=== PATIENT | female | born 1990 | race Caucasian/White ===

== ENCOUNTER 2021-09-10 11:20 | Outpatient (REF) | payer OTHER, SELFPAY ==
[2021-09-10 13:38] LABS: Binax Internal Control QC Valid; Binax Now Covid-19 Ag Negative (Negative)
== END 2021-09-10 11:21 | disposition home or self-care (01) ==
LOC: HO.LAB 11:20
PROVIDERS: Visit Provider Internal Medicine
DX: Z20.822 Contact with and (suspected) exposure to COVID-19 (principal)
CPT/HCPCS: 36415; C9803

== ENCOUNTER 2021-10-12 10:39 | Outpatient (REF) | payer OTHER, SELFPAY ==
[2021-10-12 11:04] LABS: MANUAL DIFF FLAG NO
[2021-10-12 11:28] LABS: Basophils Absolute Auto 0.1 X10*3/uL (0.0-0.2); Basophils Percent Auto 0.6 % (0-2); Eosinophils Absolute Auto 0.3 X10*3/uL (0.0-0.4); Eosinophils Percent Auto 2.9 % (0-4); Estimated Average Glucose 103 mg/dL; Hematocrit 35.8 % (37.0-47.0); Hemoglobin 9.9 g/dl (12.0-16.0); Hemoglobin A1c % 5.2 %; Imm Gran Abs Auto 0.03 X10*3/uL (0.00-0.03); Imm Gran Pct Auto 0.3 % (0.0-0.4); Lymphocytes Absolute Auto 1.8 X10*3/uL (1.2-4.9); Lymphocytes Percent Auto 19.4 % (20-40); Mean Corpuscular HGB Conc 27.7 g/dl (31.0-35.0); Mean Corpuscular Hemoglobin 19.8 pg (27.0-33.0); Mean Corpuscular Volume 71.5 fL (80.0-98.0); Monocytes Absolute Auto 0.7 X10*3/uL (0.1-1.2); Monocytes Percent Auto 7.4 % (2-11); Neutrophils Absolute Auto 6.5 x10*3/uL (2.0-8.3); Neutrophils Percent Auto 69.4 % (45-73); Platelet Count 293 X10*3/uL (160-400); Red Blood Count 5.01 X10*6/uL (4.20-5.50); Red Cell Distribution Width 18.8 % (11.0-16.0); White Blood Count 9.4 X10*3/uL (4.8-10.8)
[2021-10-12 12:02] LABS: TSH reflex Free T4 2.49 uIU/mL (0.32-4.0)
[2021-10-12 12:05] LABS: Alanine Aminotransferase 23 U/L (0-31); Albumin Level 4.3 g/dL (3.5-5.0); Alkaline Phosphatase 108 U/L (39-117); Anion Gap 12 (12-20); Aspartate Amino Transferase 16 U/L (5-31); Blood Urea Nitrogen 9 mg/dL (9-16); Calcium 9.5 mg/dL (8.4-10.2); Carbon Dioxide 24 mmol/L (22-29); Chloride 107 mmol/L (96-108); Cholesterol 110 mg/dL; Estimated Glomerular Filt Rate > 60; Glucose Fasting 104 mg/dL (60-99); HDL Cholesterol 32 mg/dL; LDL Cholesterol Calculated 55 mg/dl; Sodium 139 mmol/L (135-145); Total Protein 7.1 g/dL (6.5-8.0); Triglycerides 115 mg/dL
== END 2021-10-12 10:40 | disposition home or self-care (01) ==
LOC: HO.LAB 10:39
PROVIDERS: Visit Provider Nurse Practitioner Family
DX: F41.9 Anxiety disorder, unspecified (principal); Z76.89 Persons encountering health services in other specified circumstances
CPT/HCPCS: 36415; 80053; 80061; 83036; 84443; 85025

== ENCOUNTER → 2022-01-11 13:20 | Outpatient (BNVA) | payer OTHER, SELFPAY | PROVIDERS: PCP Nurse Practitioner Family; Referring Provider Nurse Practitioner Family; Visit Provider Physician Assistant | DX: Z13.89 Encounter for screening for other disorder (principal) ==

== ENCOUNTER → 2022-01-25 15:53 | Outpatient (REF) | payer OTHER, SELFPAY | LOC: HO.SL 15:53 | PROVIDERS: PCP Nurse Practitioner Acute Care; Visit Provider Nurse Practitioner Family | DX: G47.33 Obstructive sleep apnea (adult) (pediatric) (principal) | CPT/HCPCS: 95806 ==

== ENCOUNTER → 2022-02-24 10:44 | Outpatient (BNVA) | payer OTHER, SELFPAY | PROVIDERS: PCP Nurse Practitioner Acute Care; Visit Provider Physician Assistant | DX: E66.01 Morbid (severe) obesity due to excess calories (principal); G47.33 Obstructive sleep apnea (adult) (pediatric); D50.9 Iron deficiency anemia, unspecified; Z68.43 Body mass index [BMI] 50.0-59.9, adult | CPT/HCPCS: 99202 ==

== ENCOUNTER 2022-03-03 14:05 | Outpatient (REF) | payer OTHER, SELFPAY ==
[2022-03-06 14:10] LABS: H Pylori Breath Test Negative (Negative)
== END 2022-03-03 14:06 | disposition home or self-care (01) ==
LOC: HO.LNP 14:05
PROVIDERS: Physician Assistant Surgical; PCP Nurse Practitioner Acute Care; Visit Provider Physician Assistant
DX: Z01.818 Encounter for other preprocedural examination (principal)
CPT/HCPCS: 83013; 99211

== ENCOUNTER → 2022-03-10 15:11 | Outpatient (BNVA) | payer OTHER, SELFPAY | PROVIDERS: PCP Nurse Practitioner Acute Care; Visit Provider Dietitian, Registered | DX: E66.01 Morbid (severe) obesity due to excess calories (principal); Z68.42 Body mass index [BMI] 45.0-49.9, adult; Z71.3 Dietary counseling and surveillance | CPT/HCPCS: 97802 ==

== ENCOUNTER 2022-03-23 12:03 | Outpatient (REF) | payer OTHER, SELFPAY ==
--- NOTE | ~2022-03-23 | XR_ITS ---
EXAMINATION: XR CHEST CLINICAL INFORMATION: Severe obesity due to excess calories COMPARISON: None TECHNIQUE: 2 views of the chest were obtained. FINDINGS: The lungs are well-expanded and clear. The heart size and pulmonary vascularity is normal. There is moderate dextroscoliosis mid dorsal spine. No lytic or sclerotic process seen. XR/XR chest 2V IMPRESSION: Unremarkable chest exam
--- NOTE | 2022-03-23 12:39 | ECG_ITS ---
Test Reason : MORBID OBESITY Blood Pressure : / mmHG Vent. Rate : 087 BPM Atrial Rate : 087 BPM P-R Int : 142 ms QRS Dur : 080 ms QT Int : 360 ms P-R-T Axes : -09 024 010 degrees QTc Int : 433 ms Normal sinus rhythm Normal ECG No previous ECGs available Referred By: Riaz French Electronically Signed By:Josafat Seaman
[2022-03-23 13:15] LABS: Basophils Absolute Auto 0.1 X10*3/uL (0.0-0.2); Basophils Percent Auto 0.7 % (0-2); Hematocrit 36.3 % (37.0-47.0); Hemoglobin 10.1 g/dl (12.0-16.0); Mean Corpuscular HGB Conc 27.8 g/dl (31.0-35.0); Monocytes Absolute Auto 0.6 X10*3/uL (0.1-1.2); Red Cell Distribution Width 18.6 % (11.0-16.0); SCAN SMEAR FLAG 1
[2022-03-23 13:18] LABS: Eosinophils Absolute Auto 0.3 X10*3/uL (0.0-0.4); Eosinophils Percent Auto 3.2 % (0-4); Imm Gran Abs Auto 0.02 X10*3/uL (0.00-0.03); Imm Gran Pct Auto 0.2 % (0.0-0.4); Lymphocytes Percent Auto 23.7 % (20-40); Mean Corpuscular Hemoglobin 20.1 pg (27.0-33.0); Mean Corpuscular Volume 72.3 fL (80.0-98.0); Monocytes Percent Auto 6.7 % (2-11); Neutrophils Absolute Auto 5.6 x10*3/uL (2.0-8.3); Neutrophils Percent Auto 65.5 % (45-73); Platelet Count 310 X10*3/uL (160-400); Red Blood Count 5.02 X10*6/uL (4.20-5.50); White Blood Count 8.5 X10*3/uL (4.8-10.8)
[2022-03-23 13:25] LABS: Estimated Average Glucose 100 mg/dL; Hemoglobin A1c % 5.1 %
[2022-03-23 13:28] LABS: MANUAL DIFF FLAG NO; PLT ABN DIST 1
[2022-03-23 13:36] LABS: Alanine Aminotransferase 34 U/L (0-31); Albumin Level 4.5 g/dL (3.5-5.0); Alkaline Phosphatase 111 U/L (39-117); Anion Gap 11 (12-20); Aspartate Amino Transferase 19 U/L (5-31); Bilirubin Total 0.6 mg/dL (0.0-1.0); Blood Urea Nitrogen 13 mg/dL (9-16); Calcium 9.5 mg/dL (8.4-10.2); Carbon Dioxide 25 mmol/L (22-29); Chloride 109 mmol/L (96-108); Cholesterol 101 mg/dL; Estimated Glomerular Filt Rate > 60; Glucose Random 103 mg/dL (60-115); HDL Cholesterol 31 mg/dL; Iron 37 mcg/dL (30-160); LDL Cholesterol Calculated 49 mg/dl; Percent Iron Saturation 8 % (15-50); Potassium 4.5 mmol/L (3.3-5.1); Sodium 140 mmol/L (135-145); Total Iron Binding Capacity 446 mcg/dL (228-428); Total Protein 7.4 g/dL (6.5-8.0); Triglycerides 107 mg/dL; Unsaturated Iron Binding 409 ug/dL
[2022-03-23 13:59] LABS: Ferritin 17 ng/mL (10-122); Insulin 46 uU/mL (2-29); TSH reflex Free T4 2.09 uIU/mL (0.32-4.0); Vitamin D 25-OH Total 12.1 ng/mL (>30)
[2022-03-23 14:21] LABS: Vitamin B12 404 pg/mL (200-900)
[2022-03-24 12:55] LABS: Calcium (PTHI) 9.6 mg/dL (8.6-10.2); PTHI 97 pg/mL (16-77)
[2022-03-28 16:47] LABS: Zinc 82 mcg/dL (60-130)
[2022-03-30 13:56] LABS: Vitamin B1 7 nmol/L (8-30)
[2022-03-31 15:21] LABS: Vitamin A 38 mcg/dL (38-98)
== END 2022-03-23 12:04 | disposition home or self-care (01) ==
LOC: HO.XRAY 12:03
PROVIDERS: PCP Nurse Practitioner Family; Visit Provider Physician Assistant Surgical
DX: E66.01 Morbid (severe) obesity due to excess calories (principal)
CPT/HCPCS: 36415; 71046; 80053; 80061; 82306; 82607; 82728; 82746; 83036; 83525; 83540; 83970; 84425; 84443; 84590; 84630; 85025; 86140; 93005

== ENCOUNTER → 2022-03-24 13:56 | Outpatient (BNVA) | payer OTHER, SELFPAY | PROVIDERS: PCP Nurse Practitioner Acute Care; Visit Provider Physician Assistant | DX: E66.01 Morbid (severe) obesity due to excess calories (principal); Z68.42 Body mass index [BMI] 45.0-49.9, adult | CPT/HCPCS: 99212 ==

== ENCOUNTER → 2022-04-09 14:33 | Outpatient (BNVA) | payer OTHER, SELFPAY | PROVIDERS: PCP Nurse Practitioner Acute Care; Referring Provider Physician Assistant; Visit Provider Dietitian, Registered | DX: E66.01 Morbid (severe) obesity due to excess calories (principal) | CPT/HCPCS: 97803 ==

== ENCOUNTER 2022-04-15 09:21 | Outpatient (REF) | payer OTHER, SELFPAY ==
--- NOTE | ~2022-04-15 | FL_ITS ---
EXAMINATION: XR FLUOROSCOPY UPPER GI WITH AIR CLINICAL INFORMATION: Morbid obesity. Evaluate for hiatal hernia or reflux. COMPARISON: None TECHNIQUE: Double contrast examination of the upper GI tract. The patient was administered gas-forming crystals. The patient was observed upright and recumbent. Provocative maneuvers were performed to assess for the presence of GE reflux. FINDINGS: There is no delay in swallowing. There is no esophageal mass or fixed area of narrowing. Minimal esophageal dysmotility manifested by some nonpropulsive contractions. There is a tiny sliding-type hiatal hernia intermittently demonstrated. This manifests as a small projection of the above the esophageal hiatus. No reflux was demonstrated under fluoroscopy. The patient was unable to retain the gaseous distention. There is no gastric mass or ulcer. There was no delay in gastric emptying. No abnormality of the duodenum. I suspect some scoliosis. FLUOROSCOPY TIME: 1.7 minutes DOSE AREA PRODUCT: 29.690 Gy-cm2 (hernandez-centimeter squared) FL/FL upper GI w air IMPRESSION: There is no mass or fixed area of narrowing. Trace esophageal dysmotility. Minimal transient sliding-type hiatal hernia No reflux demonstrated under fluoroscopy. No delay in gastric emptying
--- NOTE | ~2022-04-15 | US_ITS ---
EXAMINATION: US COMPLETE ABDOMEN WITH LIVER ELASTOGRAPHY CLINICAL INFORMATION: Morbid, severe obesity to access calories COMPARISON: None. TECHNIQUE: Real-time imaging of the abdominal viscera. Noninvasive ultrasound liver fibrosis assessment is performed using Melecio ElastPQ point quantification shear wave elastography (2D-SWE) with a C5-2 MHz transducer. Multiple elastography samples are obtained. FINDINGS: Patient habitus limits detail PANCREAS: No suspicious abnormality in the visualized portions of the pancreas ABDOMINAL AORTA: The proximal aorta was visualized without definite abnormality. The remainder of the aorta was obscured INFERIOR VENA CAVA: Visualized portions are normal. LIVER: The right lobe of the liver measures 18.4 cm which is approximately 1 standard deviation above the mean expected. The left lobe the liver measures 14.1 cm. The liver contour is smooth. There is diffuse increased hepatic echogenicity with some attenuation of sound. There is poor visualization of the diaphragm. There is no suspicious focal liver lesion. The right lobe measures 18.4 cm in length. The left lobe measures 14.1 cm in length. Portal flow is towards the liver (hepatopetal). Shear wave liver elastography median stiffness is 1.72 m/s (reference: normal median stiffness is 1.3 m/s or less). IQR/median stiffness to assess sampling precision is 0.09 (reference: good quality data set is IQR/median stiffness of 0.15 or less). GALLBLADDER: The gallbladder is not visualized and there is a history of cholecystectomy COMMON BILE DUCT: Normal in caliber measuring 0.5 cm in diameter. RIGHT KIDNEY: Normal. No hydronephrosis. No renal calculi or focal parenchymal lesions. The kidney measures 12.5 cm in maximum dimension. LEFT KIDNEY: Normal. No hydronephrosis. No renal calculi or focal parenchymal lesions. The kidney measures 14.3 cm in maximum dimension. SPLEEN: The spleen is approximately 2 standard deviations above the mean expected. The spleen measures 14.9 cm in maximum dimension. FREE FLUID: None. US/US abdomen comp w elastography IMPRESSION: 1. The liver volume is top normal. The liver contour is smooth. No suspicious focal liver lesion. Diffuse increased hepatic echogenicity which can be seen with fatty change. No suspicious focal liver lesion 2. Liver elastography: Measurements are suggestive of compensated advanced chronic liver disease but need further test for confirmation. The liver stiffness is borderline suggestive of compensated chronic liver disease No secondary evidence of sequelae from portal hypertension REFERENCE: Society of Radiologists in Ultrasound Liver Stiffness Thresholds (2020): LIVER STIFFNESS THRESHOLDS: *Liver Stiffness equal or less than 1.3 m/s: High probability of being normal. *Liver Stiffness less than 1.7 m/s: In the absence of other known clinical signs, rules out compensated advanced chronic liver disease. *Liver Stiffness 1.7-2.1 m/s: Suggestive of compensated advanced chronic liver disease but need further test for confirmation. *Liver Stiffness over 2.1 m/s: Rules in compensated advanced chronic liver disease. *Liver Stiffness over 2.4 m/s: Suggestive of clinically significant portal hypertension. QUALITY OF DATA SET: *IQR/Median value equal or less than 0.15 implies a quality data set. *IQR/Median value over 0.15 implies a poor quality data set. SIGNIFICANT CHANGE FROM PRIOR EXAM: Significant change if liver stiffness measurement is 10% or greater from prior exam. OTHER CONSIDERATIONS: The stage of liver fibrosis may be overestimated in the setting of acute hepatitis, liver inflammation, elevated liver function tests, hepatic vascular congestion, obstructive cholestasis, non-fasting state, and infiltrative diseases such as amyloidosis and lymphoma. In some patients with NAFLD, the liver stiffness thresholds for compensated advanced chronic liver disease may be lower. In causes other than viral hepatitis and NAFLD, liver stiffness thresholds are not well established.
== END 2022-04-15 09:22 | disposition home or self-care (01) ==
LOC: HO.US 09:21
PROVIDERS: Visit Provider Physician Assistant
DX: E66.01 Morbid (severe) obesity due to excess calories (principal)
CPT/HCPCS: 74246; 76705; 76981

== ENCOUNTER → 2022-04-28 15:08 | Outpatient (BNVA) | payer OTHER, SELFPAY | PROVIDERS: PCP Nurse Practitioner Acute Care; Referring Provider Nurse Practitioner Acute Care; Visit Provider Physician Assistant | DX: G47.33 Obstructive sleep apnea (adult) (pediatric) (principal); E66.01 Morbid (severe) obesity due to excess calories | CPT/HCPCS: 99212 ==

== ENCOUNTER 2022-05-07 15:13 | Outpatient (REF) | payer OTHER, SELFPAY ==
[2022-05-07 16:01] LABS: COVID-19 Test Negative (Negative); IDNOW Serial# 08D9AD1C
== END 2022-05-07 15:14 | disposition home or self-care (01) ==
LOC: HO.LAB 15:13
PROVIDERS: Visit Provider Internal Medicine
DX: Z20.822 Contact with and (suspected) exposure to COVID-19 (principal)
CPT/HCPCS: 87635; C9803

== ENCOUNTER 2022-10-12 19:18 | Emergency (ER) | payer OTHER, SELFPAY ==
--- NOTE | 2022-10-12 19:21 | ED.DIZZY ---
HPI - Dizziness General Chief Complaint: Dizziness <Kaykay Stark CNP - Last Filed: 10/12/22 19:25> Stated Complaint: Dizziness <Kaykay Stark CNP - Last Filed: 10/12/22 19:25> Time Seen by Provider: 10/12/22 21:05 <Kaykay Stark CNP - Last Filed: 10/12/22 19:25> Source: patient <Zeke Gray MD - Last Filed: 10/12/22 22:18> Mode of arrival: ambulatory <Zeke Gray MD - Last Filed: 10/12/22 22:18> Limitations: no limitations <Zeke Gray MD - Last Filed: 10/12/22 22:18> History of Present Illness HPI Narrative: Patient with no significant past medical history noticed sudden onset vertiginous feeling for last 4 days patient feel everything spinning around with unsteady gait slight nausea no headache no fever no chills patient never had similar some complaints in the past no ear discharge or tinnitus <Zeke Gray MD - Last Filed: 10/12/22 22:18> Related Data Home Medications: Home Medications Medication Instructions Recorded Confirmed betamethasone dipropionate 0.05 % appl topical 12/25/21 topical cream chlorhexidine gluconate 4 % topical DAILY 12/25/21 topical liquid (Hibiclens) buspirone 7.5 mg tablet 7.5 mg PO TID anxiety 02/24/22 fluoxetine 20 mg capsule 20 mg PO DAILY 02/24/22 hydroxyzine pamoate 25 mg capsule 25 mg PO BID PRN panic attack 02/24/22 trazodone 50 mg tablet 50 mg PO BEDTIME 02/24/22 Previous Rx's Medication Instructions Recorded ferrous sulfate 325 mg (65 mg 325 mg PO BID #60 tabs 02/15/22 iron) tablet cholecalciferol (vitamin D3) 25 25 mcg PO DAILY #30 caps 03/24/22 mcg (1,000 unit) capsule thiamine HCl (vitamin B1) 100 mg 100 mg PO DAILY #30 tabs 03/30/22 tablet docusate sodium 100 mg capsule 100 mg PO BID #60 caps 04/28/22 (Colace) inulin 2 gram chewable tablet 2 g PO BID #60 tabs 04/28/22 (Fiber Gummies) meclizine 25 mg tablet 25 mg PO TID PRN dizziness #20 tabs 10/12/22 <Kaykay Stark CNP - Last Filed: 10/12/22 19:25> Allergies/Adverse Reactions: Allergies Allergy/AdvReac Type Severity Reaction Status Date / Time No Known Allergies Allergy Verified 04/28/22 15:31 <Kaykay Stark CNP - Last Filed: 10/12/22 19:25> Review of Systems Review of Systems: Yes all other systems are reviewed and are negative <Zeke Gray MD - Last Filed: 10/12/22 22:18> [facility] Past Medical History Surgical History: Surgical History History of History of cholecystectomy History of tubal ligation <Kaykay Stark CNP - Last Filed: 10/12/22 19:25> Family History Family History: Family History Father Diabetes Hypertension Mother Hypertension Diabetes High cholesterol Heart problem Family/Other Mental health disorder Substance use disorder Maternal Aunt Breast cancer, Onset Age: 65 Maternal Uncle Prostate CA Sister Diabetes Brother Diabetes Brother No problems noted. Son No problems noted. Son ADHD Son ADHD Other Throat cancer <Kaykay Stark CNP - Last Filed: 10/12/22 19:25> Social History Social History: Social History (Reviewed 04/28/22 @ 15:31 by Sahra Clayton, [facility]) Housing: Apartment Alcohol intake: never Patient Tobacco Use Status: Current everyday Tobacco user Tobacco use type: Cigarette Cigarettes Per Day: 6 Smoked in Last 30 Days: Yes e-Cigarette/Vaping Use: Never Used Second Hand Smoke Exposure: No Use of substances other than those prescribed or required for medical reasons: No Advance Directives: No Advance Directives Information Provided: No Patient : No service: No Current occupational status: unemployed Cognitive needs: No Hearing needs: No Vision needs: No <Kaykay Stark CNP - Last Filed: 10/12/22 19:25> Physical Exam Vital Signs: Vital Signs: Last Vital Signs Temp 97.9 F 10/12/22 19:24 Pulse 109 H 10/12/22 20:38 Resp 16 10/12/22 19:24 BP 142/88 H 10/12/22 20:38 Pulse Ox 100 10/12/22 19:24 O2 Del Method 10/12/22 19:24 BMI result Body Mass Index 52.7 <Kaykay Stark CNP - Last Filed: 10/12/22 19:25> Vital Signs: Last Vital Signs Temp 97.9 F 10/12/22 19:24 Pulse 109 H 10/12/22 20:38 Resp 16 10/12/22 19:24 BP 142/88 H 10/12/22 20:38 Pulse Ox 100 10/12/22 19:24 O2 Del Method 10/12/22 19:24 BMI result Body Mass Index 52.7 <Zeke Gray MD - Last Filed: 10/12/22 22:18> Appearance: Alert. Oriented X3. No acute distress. Eyes: PERRLA, No Nystagmus ENT: Pharynx normal. Oral Mucosa moist Neck: Normal inspection. Neck supple. CVS: Normal heart rate and rhythm. Pulses normal. Respiratory: No respiratory distress. Equal air entry bilateral, Abdomen: Soft and nontender. Bowel sounds are present, Skin: Skin warm and dry. Normal skin color. Normal skin turgor. Extremities: No lower extremity edema. No calf tenderness Neuro: Oriented X 3. No motor deficit. No sensory deficit.No cerebellar signs , cranial nerves II-XII intact <Zeke Gray MD - Last Filed: 10/12/22 22:18> Course Course Course Narrative: This is an RME: Additional HPI, ROS, PE not included below will be deferred to primary provider. Patient is a 32-year-old female who presents emergency department for evaluation of Dizziness x 4 days, intermittently, with associated nausea no vomiting. Worse with position changes, but also occured today while driving, room spinning sensation. Yesterday with a headache, currently without. Denies fevers, chills, neck pain, chest pain, shortness of breath ABD pain, numbness or tingling. Denies possibility of , tubal ligation Plan: labs, urinalysis/ preg, orthostatic VS <Kaykay Stark CNP - Last Filed: 10/12/22 19:25> Medications Administered Discontinued Medications Generic Name Dose Route Start Last Admin Trade Name Pricilla PRN Reason Stop Dose Admin Meclizine HCl 50 mg 10/12/22 21:31 10/12/22 21:48 Meclizine Hcl 25 Mg Tablet PO 10/12/22 21:32 50 mg ONCE ONE Administration <Kaykay Stark CNP - Last Filed: 10/12/22 19:25> Medications Administered Discontinued Medications Generic Name Dose Route Start Last Admin Trade Name Freq PRN Reason Stop Dose Admin Meclizine HCl 50 mg 10/12/22 21:31 10/12/22 21:48 Meclizine Hcl 25 Mg Tablet PO 10/12/22 21:32 50 mg ONCE ONE Administration <Zeke Gray MD - Last Filed: 10/12/22 22:18> Medical Decision Making Medical Decision Making [facility] Narrative: Patient has stable labs clinically benign positional vertigo feeling much better now will give meclizine discharge patient home . <Zeke Gray MD - Last Filed: 10/12/22 22:18> Lab Data [facility] Lab Attestation statement: I reviewed the patient's lab results. <Zeke Gray MD - Last Filed: 10/12/22 22:18> Result Diagrams: 10/12/22 19:47 10/12/22 19:47 <Kaykay Stark CNP - Last Filed: 10/12/22 19:25> Labs: Lab Results 10/12/22 10/12/22 10/12/22 Range/Units 19:47 19:47 19:47 WBC 10.1 (4.8-10.8) X10*3/uL RBC 4.84 (4.20-5.50) X10*6/uL Hgb 9.5 L (12.0-16.0) g/dl Hct 34.1 L (37.0-47.0) % MCV 70.5 L (80.0-98.0) fL MCH 19.6 L (27.0-33.0) pg MCHC 27.9 L (31.0-35.0) g/dl RDW 18.2 H (11.0-16.0) % Plt Count 316 (160-400) X10*3/uL MPV Not Reportable Immature Gran % (Auto) 0.2 (0.0-0.4) % Neut % (Auto) 71.3 (45-73) % Lymph % (Auto) 19.5 L (20-40) % [place] % (Auto) 6.7 (2-11) % Eos % (Auto) 1.5 (0-4) % Baso % (Auto) 0.8 (0-2) % Lymph # (Auto) 2.0 (1.2-4.9) X10*3/uL [place] # (Auto) 0.7 (0.1-1.2) X10*3/uL Eos # (Auto) 0.2 (0.0-0.4) X10*3/uL Baso # (Auto) 0.1 (0.0-0.2) X10*3/uL Abs Immat Gran (auto) 0.02 (0.00-0.03) X10*3/uL Absolute Neuts (auto) 7.2 (2.0-8.3) x10*3/uL Absolute Nucleated RBC 0.000 (0.0-0.012) X10*3/uL Nucleated RBC % (auto) 0.0 (0.0-0.2) /100WBC Sodium 141 (135-145) mmol/L Potassium 3.8 (3.3-5.1) mmol/L Chloride 109 H (96-108) mmol/L Carbon Dioxide 22 (22-29) mmol/L Anion Gap 14 (12-20) BUN 11 (9-16) mg/dL Creatinine 0.74 (0.5-1.4) mg/dL Estim Creat Clear Calc 156.5 Estimated GFR > 60 Random Glucose 147 H (60-115) mg/dL Calcium 9.1 (8.4-10.2) mg/dL Magnesium 1.9 (1.6-2.6) mg/dL Total Bilirubin 0.7 (0.0-1.0) mg/dL AST 14 (5-31) U/L ALT 27 (0-31) U/L Alkaline Phosphatase 116 (39-117) U/L Total Protein 6.5 (6.5-8.0) g/dL Albumin 4.0 (3.5-5.0) g/dL Urine Test (NEGATIVE) COVID-19 ([facility]) (Negative) COVID-19 Clin Com Influenza Type A ([facility]ERTO) Negative (Negative) Influenza Type B ([facility]O) Negative (Negative) Influenza A & B Note See Note 10/12/22 10/12/22 Range/Units 19:47 20:04 WBC (4.8-10.8) X10*3/uL RBC (4.20-5.50) X10*6/uL Hgb (12.0-16.0) g/dl Hct (37.0-47.0) % MCV (80.0-98.0) fL MCH (27.0-33.0) pg MCHC (31.0-35.0) g/dl RDW (11.0-16.0) % Plt Count (160-400) X10*3/uL MPV Immature Gran % (Auto) (0.0-0.4) % Neut % (Auto) (45-73) % Lymph % (Auto) (20-40) % [place] % (Auto) (2-11) % Eos % (Auto) (0-4) % Baso % (Auto) (0-2) % Lymph # (Auto) (1.2-4.9) X10*3/uL [place] # (Auto) (0.1-1.2) X10*3/uL Eos # (Auto) (0.0-0.4) X10*3/uL Baso # (Auto) (0.0-0.2) X10*3/uL Abs Immat Gran (auto) (0.00-0.03) X10*3/uL Absolute Neuts (auto) (2.0-8.3) x10*3/uL Absolute Nucleated RBC (0.0-0.012) X10*3/uL Nucleated RBC % (auto) (0.0-0.2) /100WBC Sodium (135-145) mmol/L Potassium (3.3-5.1) mmol/L Chloride (96-108) mmol/L Carbon Dioxide (22-29) mmol/L Anion Gap (12-20) BUN (9-16) mg/dL Creatinine (0.5-1.4) mg/dL Estim Creat Clear Calc Estimated GFR Random Glucose (60-115) mg/dL Calcium (8.4-10.2) mg/dL Magnesium (1.6-2.6) mg/dL Total Bilirubin (0.0-1.0) mg/dL AST (5-31) U/L ALT (0-31) U/L Alkaline Phosphatase (39-117) U/L Total Protein (6.5-8.0) g/dL Albumin (3.5-5.0) g/dL Urine Test NEGATIVE (NEGATIVE) COVID-19 ([facility]) Negative (Negative) COVID-19 Clin Com See Note Influenza Type A ([facility]IG[facility]ERTO) (Negative) Influenza Type B ([facility]O) (Negative) Influenza A & B Note <Kaykay Stark, BELLA - Last Filed: 10/12/22 19:25> Lab Results 10/12/22 10/12/22 10/12/22 Range/Units 19:47 19:47 19:47 WBC 10.1 (4.8-10.8) X10*3/uL RBC 4.84 (4.20-5.50) X10*6/uL Hgb 9.5 L (12.0-16.0) g/dl Hct 34.1 L (37.0-47.0) % MCV 70.5 L (80.0-98.0) fL MCH 19.6 L (27.0-33.0) pg MCHC 27.9 L (31.0-35.0) g/dl RDW 18.2 H (11.0-16.0) % Plt Count 316 (160-400) X10*3/uL MPV Not Reportable Immature Gran % (Auto) 0.2 (0.0-0.4) % Neut % (Auto) 71.3 (45-73) % Lymph % (Auto) 19.5 L (20-40) % [place] % (Auto) 6.7 (2-11) % Eos % (Auto) 1.5 (0-4) % Baso % (Auto) 0.8 (0-2) % Lymph # (Auto) 2.0 (1.2-4.9) X10*3/uL [place] # (Auto) 0.7 (0.1-1.2) X10*3/uL Eos # (Auto) 0.2 (0.0-0.4) X10*3/uL Baso # (Auto) 0.1 (0.0-0.2) X10*3/uL Abs Immat Gran (auto) 0.02 (0.00-0.03) X10*3/uL Absolute Neuts (auto) 7.2 (2.0-8.3) x10*3/uL Absolute Nucleated RBC 0.000 (0.0-0.012) X10*3/uL Nucleated RBC % (auto) 0.0 (0.0-0.2) /100WBC Sodium 141 (135-145) mmol/L Potassium 3.8 (3.3-5.1) mmol/L Chloride 109 H (96-108) mmol/L Carbon Dioxide 22 (22-29) mmol/L Anion Gap 14 (12-20) BUN 11 (9-16) mg/dL Creatinine 0.74 (0.5-1.4) mg/dL Estim Creat Clear Calc 156.5 Estimated GFR > 60 Random Glucose 147 H (60-115) mg/dL Calcium 9.1 (8.4-10.2) mg/dL Magnesium 1.9 (1.6-2.6) mg/dL Total Bilirubin 0.7 (0.0-1.0) mg/dL AST 14 (5-31) U/L ALT 27 (0-31) U/L Alkaline Phosphatase 116 (39-117) U/L Total Protein 6.5 (6.5-8.0) g/dL Albumin 4.0 (3.5-5.0) g/dL Urine Test (NEGATIVE) COVID-19 ([facility]) (Negative) COVID-19 Clin Com Influenza Type A ([facility]IGOBERTO) Negative (Negative) Influenza Type B ([facility]OBERTO) Negative (Negative) Influenza A & B Note See Note 10/12/22 10/12/22 Range/Units 19:47 20:04 WBC (4.8-10.8) X10*3/uL RBC (4.20-5.50) X10*6/uL Hgb (12.0-16.0) g/dl Hct (37.0-47.0) % MCV (80.0-98.0) fL MCH (27.0-33.0) pg MCHC (31.0-35.0) g/dl RDW (11.0-16.0) % Plt Count (160-400) X10*3/uL MPV Immature Gran % (Auto) (0.0-0.4) % Neut % (Auto) (45-73) % Lymph % (Auto) (20-40) % [place] % (Auto) (2-11) % Eos % (Auto) (0-4) % Baso % (Auto) (0-2) % Lymph # (Auto) (1.2-4.9) X10*3/uL [place] # (Auto) (0.1-1.2) X10*3/uL Eos # (Auto) (0.0-0.4) X10*3/uL Baso # (Auto) (0.0-0.2) X10*3/uL Abs Immat Gran (auto) (0.00-0.03) X10*3/uL Absolute Neuts (auto) (2.0-8.3) x10*3/uL Absolute Nucleated RBC (0.0-0.012) X10*3/uL Nucleated RBC % (auto) (0.0-0.2) /100WBC Sodium (135-145) mmol/L Potassium (3.3-5.1) mmol/L Chloride (96-108) mmol/L Carbon Dioxide (22-29) mmol/L Anion Gap (12-20) BUN (9-16) mg/dL Creatinine (0.5-1.4) mg/dL Estim Creat Clear Calc Estimated GFR Random Glucose (60-115) mg/dL Calcium (8.4-10.2) mg/dL Magnesium (1.6-2.6) mg/dL Total Bilirubin (0.0-1.0) mg/dL AST (5-31) U/L ALT (0-31) U/L Alkaline Phosphatase (39-117) U/L Total Protein (6.5-8.0) g/dL Albumin (3.5-5.0) g/dL Urine Test NEGATIVE (NEGATIVE) COVID-19 ([facility]) Negative (Negative) COVID-19 Clin Com See Note Influenza Type A ([facility]OBERTO) (Negative) Influenza Type B ([facility]) (Negative) Influenza A & B Note <Zeke Anwer Isaac, MD - Last Filed: 10/12/22 22:18> Discharge Plan Discharge Clinical Impression: Benign paroxysmal positional vertigo <Kaykay Stark CNP - Last Filed: 10/12/22 19:25> Patient Disposition: Home, Self-Care <Kaykay Stark CNP - Last Filed: 10/12/22 19:25> Instructions: Benign Paroxysmal Positional Vertigo (ED) <Kaykay Stark CNP - Last Filed: 10/12/22 19:25> Additional Instructions: Care and cautions as advised Meclizine 1 tablet 3 times a day as needed for severe dizziness Follow with PCP as needed Cuidados y precauciones seg?n lo recomendado Meclizine 1 tableta 3 veces al d?a seg?n sea necesario para mareos intensos Siga con PCP seg?n sea necesario <Kaykay Stark CNP - Last Filed: 10/12/22 19:25> Prescriptions: New meclizine 25 mg tablet 25 mg PO TID PRN (Reason: dizziness) Qty: 20 0RF No Action ferrous sulfate 325 mg (65 mg iron) tablet 325 mg PO BID Qty: 60 1RF thiamine HCl (vitamin B1) 100 mg tablet 100 mg PO DAILY Qty: 30 2RF chlorhexidine gluconate [Hibiclens] 4 % liquid topical DAILY betamethasone dipropionate 0.05 % cream topical Fiber Gummies 2 gram tablet,chewable 2 g PO BID Qty: 60 5RF docusate sodium [Colace] 100 mg capsule 100 mg PO BID Qty: 60 5RF hydroxyzine pamoate 25 mg capsule 25 mg PO BID PRN (Reason: panic attack) buspirone 7.5 mg tablet 7.5 mg PO TID fluoxetine 20 mg capsule 20 mg PO DAILY trazodone 50 mg tablet 50 mg PO BEDTIME cholecalciferol (vitamin D3) 25 mcg (1,000 unit) capsule 25 mcg PO DAILY Qty: 30 5RF <Kaykay Stark CNP - Last Filed: 10/12/22 19:25> Interventions: ED Discharge Assessment Last Done: 10/12/22 21:51 <Kaykay Stark CNP - Last Filed: 10/12/22 19:25> Discharge Date/Time: 10/12/22 21:52 <Kaykay Stark CNP - Last Filed: 10/12/22 19:25> Print Language: Bahamian <Kaykay Stark CNP - Last Filed: 10/12/22 19:25>
[2022-10-12 19:24] VITALS: BP 147/83; PULSE 107; RESP 16; TEMP 36.6; O2SAT 100; BMI 52.7
--- NOTE | 2022-10-12 19:25 | ECG_ITS ---
Test Reason : DIZZINESS Blood Pressure : / mmHG Vent. Rate : 098 BPM Atrial Rate : 098 BPM P-R Int : 168 ms QRS Dur : 088 ms QT Int : 342 ms P-R-T Axes : 046 017 002 degrees QTc Int : 436 ms Normal sinus rhythm Normal ECG When compared with ECG of 23-MAR-2022 12:40, No significant change was found Referred By: Kaykay Stark Electronically Signed By:EMMA FRANKLIN MD
[2022-10-12 19:52] LABS: MANUAL DIFF FLAG NO
[2022-10-12 19:56] LABS: Basophils Absolute Auto 0.1 X10*3/uL (0.0-0.2); Basophils Percent Auto 0.8 % (0-2); Eosinophils Absolute Auto 0.2 X10*3/uL (0.0-0.4); Eosinophils Percent Auto 1.5 % (0-4); Hematocrit 34.1 % (37.0-47.0); Hemoglobin 9.5 g/dl (12.0-16.0); Imm Gran Abs Auto 0.02 X10*3/uL (0.00-0.03); Imm Gran Pct Auto 0.2 % (0.0-0.4); Lymphocytes Percent Auto 19.5 % (20-40); Mean Corpuscular HGB Conc 27.9 g/dl (31.0-35.0); Mean Corpuscular Hemoglobin 19.6 pg (27.0-33.0); Mean Corpuscular Volume 70.5 fL (80.0-98.0); Monocytes Absolute Auto 0.7 X10*3/uL (0.1-1.2); Monocytes Percent Auto 6.7 % (2-11); Neutrophils Absolute Auto 7.2 x10*3/uL (2.0-8.3); Neutrophils Percent Auto 71.3 % (45-73); PLT CLUMP 1; Red Blood Count 4.84 X10*6/uL (4.20-5.50); Red Cell Distribution Width 18.2 % (11.0-16.0); SCAN SMEAR FLAG 1
[2022-10-12 20:08] LABS: COVID-19 Test Negative (Negative); IDNOW Serial# BCCEAD1C
[2022-10-12 20:09] LABS: IDNOW Serial# 9DB6401D; Influenza A Negative (Negative); Influenza B2 Negative (Negative)
[2022-10-12 20:12] LABS: Alanine Aminotransferase 27 U/L (0-31); Alkaline Phosphatase 116 U/L (39-117); Anion Gap 14 (12-20); Aspartate Amino Transferase 14 U/L (5-31); Bilirubin Total 0.7 mg/dL (0.0-1.0); Blood Urea Nitrogen 11 mg/dL (9-16); Calcium 9.1 mg/dL (8.4-10.2); Carbon Dioxide 22 mmol/L (22-29); Chloride 109 mmol/L (96-108); Creatinine Clr Calc Pharmacy 156.5; Estimated Glomerular Filt Rate > 60; Glucose Random 147 mg/dL (60-115); Magnesium 1.9 mg/dL (1.6-2.6); Potassium 3.8 mmol/L (3.3-5.1); Sodium 141 mmol/L (135-145); Total Protein 6.5 g/dL (6.5-8.0)
[2022-10-12 20:13] LABS: UPreg QC Valid YES; Urine Pregnancy NEGATIVE (NEGATIVE)
[2022-10-12 20:18] LABS: White Blood Count 10.1 X10*3/uL (4.8-10.8)
[2022-10-12 20:19] LABS: Platelet Count 316 X10*3/uL (160-400)
[2022-10-12 20:37] VITALS: BP 133/61; BP 149/79; PULSE 104; PULSE 98
[2022-10-12 20:38] VITALS: BP 142/88; PULSE 109
[2022-10-12] MEDS: Meclizine HCl 25 MG TABLET 50 MG PO (21:48)
== END 2022-10-12 21:52 | disposition home or self-care (01) ==
PROVIDERS: Nurse Practitioner Family; Emergency Provider Internal Medicine; PCP Nurse Practitioner Acute Care
DX: R42 Dizziness and giddiness (principal); F17.210 Nicotine dependence, cigarettes, uncomplicated; Z71.6 Tobacco abuse counseling; Z20.822 Contact with and (suspected) exposure to COVID-19; Z20.828 Contact with and (suspected) exposure to other viral communicable diseases; Z79.899 Other long term (current) drug therapy
CPT/HCPCS: 36415; 80053; 81025; 83735; 85025; 87502; 87635; 93005; 99283; 99284

== ENCOUNTER 2022-10-16 20:09 | Emergency (ER) | payer OTHER, SELFPAY ==
[2022-10-16 20:40] VITALS: BP 134/79; PULSE 95; RESP 16; TEMP 36.2; O2SAT 98; BMI 50.4
[2022-10-16 22:20] LABS: IDNOW Serial# 08D9AD1C; Strep A Nucleic Acid Positive (Negative)
[2022-10-16 22:35] LABS: Influenza A PCR NEGATIVE (Negative); Influenza B PCR NEGATIVE (Negative); Resp Syncy Virus RNA Qual PCR NEGATIVE (Negative); SARS COV2 PCR INHOUSE NEGATIVE (Negative)
--- NOTE | 2022-10-17 00:44 | ED.GENADULT ---
HPI - General Adult General Chief complaint: General Medical Stated complaint: Sore Throat Time Seen by Provider: 10/17/22 00:33 Source: patient Mode of arrival: ambulatory Limitations: no limitations History of Present Illness HPI narrative: 32-year-old female presents with sore throat. Sore throat started 2-3 days ago. The symptoms are getting progressively worse. Pain is described as burning and sharp in nature. The pain does not radiate. Worse with swallowing and eating. Is better with rest. Ktip-[id number]-[id number] remedies have helped slightly. She has had fever but no chills. She denies any of other respiratory symptoms such as cough, runny nose, chest pain. Related Data Home Medications Medication Instructions Recorded Confirmed betamethasone dipropionate 0.05 % appl topical 12/25/21 topical cream chlorhexidine gluconate 4 % topical DAILY 12/25/21 topical liquid (Hibiclens) buspirone 7.5 mg tablet 7.5 mg PO TID anxiety 02/24/22 fluoxetine 20 mg capsule 20 mg PO DAILY 02/24/22 hydroxyzine pamoate 25 mg capsule 25 mg PO BID PRN panic attack 02/24/22 trazodone 50 mg tablet 50 mg PO BEDTIME 02/24/22 Previous Rx's Medication Instructions Recorded ferrous sulfate 325 mg (65 mg 325 mg PO BID #60 tabs 02/15/22 iron) tablet cholecalciferol (vitamin D3) 25 25 mcg PO DAILY #30 caps 03/24/22 mcg (1,000 unit) capsule thiamine HCl (vitamin B1) 100 mg 100 mg PO DAILY #30 tabs 03/30/22 tablet docusate sodium 100 mg capsule 100 mg PO BID #60 caps 04/28/22 (Colace) inulin 2 gram chewable tablet 2 g PO BID #60 tabs 04/28/22 (Fiber Gummies) meclizine 25 mg tablet 25 mg PO TID PRN dizziness #20 tabs 10/12/22 amoxicillin 875 mg tablet 875 mg PO Q12H #20 tabs 10/17/22 Allergies Allergy/AdvReac Type Severity Reaction Status Date / Time No Known Allergies Allergy Verified 04/28/22 15:31 Review of Systems Review of Systems: CONSTITUTIONAL: Denies weight loss, Positivefever and negativechills. HEENT: Denies changes in vision and hearing. RESPIRATORY: Denies SOB and cough. CV: Denies palpitations no CP. GI: Denies abdominal pain, nausea, vomiting and diarrhea. : Denies dysuria and urinary frequency. MSK: Denies myalgia and joint pain. SKIN: Denies rash and pruritus. NEUROLOGICAL: Denies headache and syncope. PSYCHIATRIC: Denies recent changes in mood. Denies anxiety and depression. All other ROS are negative unless in HPI PMFSH Past Medical History Surgical History History of History of cholecystectomy History of tubal ligation Family History Family History Father Diabetes Hypertension Mother Hypertension Diabetes High cholesterol Heart problem Family/Other Mental health disorder Substance use disorder Maternal Aunt Breast cancer, Onset Age: 65 Maternal Uncle Prostate CA Sister Diabetes Brother Diabetes Brother No problems noted. Son No problems noted. Son ADHD Son ADHD Other Throat cancer Social History Social History Housing: Apartment Alcohol intake: never Patient Tobacco Use Status: Current everyday Tobacco user Tobacco use type: Cigarette Cigarettes Per Day: 6 e-Cigarette/Vaping Use: Never Used Second Hand Smoke Exposure: No Advance Directives: No Advance Directives Information Provided: No service: No Current occupational status: unemployed Cognitive needs: No Hearing needs: No Vision needs: No Physical Exam ED Vital Signs: Vital Signs - 24 hr 10/16/22 20:40 Temperature 97.2 F Pulse Rate 95 Respiratory Rate 16 Blood Pressure 134/79 Pulse Oximetry 98 Oxygen Delivery Method Room Air BMI result Body Mass Index 50.4 GEN: Well developed, no acute distress, alert, oriented HEENT: Normocephalic, atraumatic, normal external ears, nose appears normal, positive erythematous oropharynx, tonsillar enlargement with white exudate Eyes: Normal to appearance Neck: Supple, no lymphadenopathy Respiratory: Talks in complete sentences, no respiratory distress, clear to auscultation bilaterally Cardiovascular: Regular rate and rhythm, no murmurs rubs or gallops Abdomen: Soft, nontender, nondistended, no guarding, no rebound Back: No CVA tenderness Extremities: No clubbing cyanosis or edema Neurologic: No focal neurologic deficits, cranial nerves 2-12 intact, strength is 5/5 bilaterally, gait normal Skin: No rash Course Course Course Narrative: 32-year-old female presents with sore throat for 2-3 days. Examination was consistent with acute pharyngitis. Rapid strep was positive. Patient will be treated with amoxicillin. She may take Tylenol and ibuprofen as needed for pain and discomfort. Discharge instructions were discussed with the patient. She understands the importance of hydration. Medical Decision Making Medical Decision Making [facility] Narrative: 32-year-old female presents with sore throat for 2-3 days. Examination was consistent with acute pharyngitis. Rapid strep was positive. Patient will be treated with amoxicillin. She may take Tylenol and ibuprofen as needed for pain and discomfort. Discharge instructions were discussed with the patient. She understands the importance of hydration. HGB noted, there is no asymmetry to the oropharynx, no uvular deviation to suggest peritonsillar abscess. Patient was not ill appearing, neck was supple, doubt retropharyngeal abscess. Differential Diagnosis Differential Diagnoses: The differential diagnosis associated with the presentation includes ( Strep pharyngitis, viral pharyngitis, peritonsillar abscess, retropharyngeal abscess) strep throat Lab Data [facility] Lab Attestation statement: I reviewed the patient's lab results. Labs: Lab Results 10/16/22 10/16/22 Range/Units 21:30 21:30 Influenza Type A (PCR) NEGATIVE (Negative) Influenza Type B (PCR) NEGATIVE (Negative) RSV RNA Qual (PCR) NEGATIVE (Negative) SARS-CoV-2 RNA (RT-PCR) NEGATIVE (Negative) S. pyogenes GrpA RIGOBERTO Positive A (Negative) Tests considered The following testing was considered but not selected: x-ray of the soft tissue of neck Prescription Management I considered prescription management with: Pain Medication and Antibiotic Discharge Plan Discharge Clinical Impression: Strep pharyngitis Patient Disposition: Home, Self-Care Instructions: Strep Throat (ED) Prescriptions: New amoxicillin 875 mg tablet 875 mg PO Q12H Qty: 20 0RF No Action ferrous sulfate 325 mg (65 mg iron) tablet 325 mg PO BID Qty: 60 1RF thiamine HCl (vitamin B1) 100 mg tablet 100 mg PO DAILY Qty: 30 2RF meclizine 25 mg tablet 25 mg PO TID PRN (Reason: dizziness) Qty: 20 0RF chlorhexidine gluconate [Hibiclens] 4 % liquid topical DAILY betamethasone dipropionate 0.05 % cream topical Fiber Gummies 2 gram tablet,chewable 2 g PO BID Qty: 60 5RF docusate sodium [Colace] 100 mg capsule 100 mg PO BID Qty: 60 5RF hydroxyzine pamoate 25 mg capsule 25 mg PO BID PRN (Reason: panic attack) buspirone 7.5 mg tablet 7.5 mg PO TID fluoxetine 20 mg capsule 20 mg PO DAILY trazodone 50 mg tablet 50 mg PO BEDTIME cholecalciferol (vitamin D3) 25 mcg (1,000 unit) capsule 25 mcg PO DAILY Qty: 30 5RF Referrals: Darcy Ryder, BELLA [Primary Care Provider] - 3 days Print Language: Kyrgyz
[2022-10-17 01:04] VITALS: BP 114/78; PULSE 91; RESP 18; TEMP 36.3; O2SAT 97
[2022-10-17] MEDS: Amoxicillin 500 MG CAPSULE PO (01:13)
[2022-10-17] MEDS: Ibuprofen 600 MG TABLET PO (01:13)
--- NOTE | 2022-10-17 01:23 | PC.NURSE ---
pt medicated according mar. pt ambulatory at discharge. reports 06/14 pain. discharge packet provided to pt. pt verbalized understanding of discharge plan
== END 2022-10-17 01:24 | disposition home or self-care (01) ==
PROVIDERS: Emergency Provider Emergency Medicine; PCP Nurse Practitioner Acute Care
DX: J02.0 Streptococcal pharyngitis (principal); Z20.822 Contact with and (suspected) exposure to COVID-19; Z20.828 Contact with and (suspected) exposure to other viral communicable diseases
CPT/HCPCS: 0241U; 87651; 99284

== ENCOUNTER 2023-04-21 15:03 | Outpatient (REF) | payer OTHER, SELFPAY ==
[2023-04-25 20:34] LABS: HPV mRNA E6/E7 rflx Not Detected (Not Detected)
== END 2023-04-21 15:04 | disposition home or self-care (01) ==
LOC: HO.LNP 15:03
PROVIDERS: PCP Nurse Practitioner Acute Care; Visit Provider Advanced Practice Midwife
DX: Z01.419 Encounter for gynecological examination (general) (routine) without abnormal findings (principal); Z11.51 Encounter for screening for human papillomavirus (HPV); N92.0 Excessive and frequent menstruation with regular cycle; E66.01 Morbid (severe) obesity due to excess calories; Z68.43 Body mass index [BMI] 50.0-59.9, adult; L68.0 Hirsutism
CPT/HCPCS: 87624; 88142; 99202

== ENCOUNTER 2023-04-21 15:03 | Outpatient (AMB) | payer OTHER, SELFPAY ==
--- NOTE | 2023-04-21 15:04 | A.OFFVIS_ITS ---
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 She has never been here before her last straddle bug driver visit was when she was with her son who she has with her 8 years ago. She has 3 children delivered by in [place]. She has always been overweight and when she was a teenager even she had abnormal periods and her mother brought her to the doctor and she was given Provera. She has had more regular periods in recent past though in the last couple of years she has gained a lot more weight and her periods have become more irregular usually she would get 1 every month but sometimes she might miss until last July and that is the last time she had a regular normal cycle until the end of March around April 02 when she started spotting a little bit and then around the and 12 of April it became heavier and it is still for her on the heavier side though it is not extremely heavy today. She is not really getting any cramps today. She has had a tubal ligation so she is not worried about she is she lives with her children and her and her mother. Her housing was extremely unstable before and she had been referred to the whole [facility] weight management center and because her housing was not stable she could not focus on it because of all the stress. Now she is in a much more stable situation but over the year since she was there she has gained a lot more weight and she is heavier now than she ever was she has gained about 40 lb from when she was there she now feels much more ready to focus she had an appointment scheduled at the beginning of the month for her primary but was not feeling good so she did not keep that appointment so she needs to reschedule that 1. She isn't worried about but sometime she feels things moving in her abdomen. She was not able to void to give us a urine specimen today. [facility] Surgical History History of History of cholecystectomy History of tubal ligation Family History Father Diabetes Hypertension Mother Hypertension Diabetes High cholesterol Heart problem Family/Other Mental health disorder Substance use disorder Maternal Aunt Breast cancer, Onset Age: 65 Maternal Uncle Prostate CA Sister Diabetes Brother Diabetes Brother No problems noted. Son No problems noted. Son ADHD Son ADHD Other Throat cancer Social History Housing: Apartment Alcohol intake: never Patient Tobacco Use Status: Current everyday Tobacco user Tobacco use type: Cigarette Cigarettes Per Day: 6 e-Cigarette/Vaping Use: Never Used Second Hand Smoke Exposure: No service: No Current occupational status: unemployed Cognitive needs: No Hearing needs: No Vision needs: No Female Reproductive History Menstrual Age of Menarche: 13 Duration of menses: 3-5 days Date of last menstrual period: 04/02/23 control method: other (tubal ligation) Total pregnancies: 3 Full term: 3 Number of Living Children: 3 Physical Exam Vital Signs: Last Vital Signs BP 134/80 04/21/23 15:05 BMI result Body Mass Index 51.3 Const Nutritional Appearance: obese morbidly obese Chest Breast/axilla inspection: normal inspection of the breasts and normal inspection of the axillae Breast/axilla palpation: normal palpation of the breasts and normal palpation of the axillae Other: Patient is bleeding consistent with moderate menses. Extremely difficult speculum exam with 2 large Graves. Edge of cervix visualized but unable to visualize os Pap smear done somewhat blindly secondary to marked adiposity obstructing clear visualization cervix is more anterior unable to feel uterus at all. Nontender. Speculum Exam - Vagina: normal appearance of the vagina and other Speculum Exam - Cervix: Other cervical findings present (limited views) Bimanual exam- vagina & uterus: other (uterus difficult to assess 2' habitus) Bimanual Exam- Adnexa, other: Other (palpation of adnexae limited 2' habitus) Skin Other: Patient has a large 3-4 cm soft nontender pedunculated growth at the right upper thigh. She has had it for a few years. Assessment & Plan Assessment & Plan (1) Morbid obesity: Code(s): E66.01 - Morbid (severe) obesity due to excess calories (2) BMI 50.0-59.9, adult: Code(s): Z68.43 - Body mass index [BMI] 50.0-59.9, adult (3) Menorrhagia: Code(s): N92.0 - Excessive and frequent menstruation with regular cycle (4) Irregular periods: Code(s): N92.6 - Irregular menstruation, unspecified (5) Hirsutism: Code(s): L68.0 - Hirsutism (6) Iron deficiency anemia: Code(s): D50.9 - Iron deficiency anemia, unspecified (7) Abnormal uterine bleeding (AUB): Code(s): N93.9 - Abnormal uterine and vaginal bleeding, unspecified Plan Discussed her pattern of abnormal bleeding and the usual evaluation for it. Discussed the importance of ruling out any abnormal cells in her endometrium that are contributing to this. Discussed the ways of evaluating it, including pelvic ultrasound if appropriate, and an endometrial biopsy if appropriate. Also discussed the common causes of abnormal bleeding, including cancerous or precancerous cells, endometrial hyperplasia, anovulatory cycles, fibroids, and other potential causes. Discussed evaluation methods including endometrial biopsy to check the cells in the endometrial cavity, pelvic ultrasound to rule out any other abnormalities including fibroids, and any lab work if appropriate. Also discussed possible treatment to deal with the abnormal bleeding which may include medications, depending on age and other factors, that include control pills use of Provera or other medications, and Mirena IUDs. In certain cases there may be other treatment plans discussed as well. Discussed the strong likelihood that her history and symptoms are consistent with polycystic ovarian syndrome and discussed the issues involved with PCOS as below. ---Discussed PCOS in general and specifically about the interplay of the abnormal hormonal milieu related to being overweight, with the elevations of many hormone levels, including testosterone and estrogen, as well as others that contribute to cycles that are anovulatory and therefore prolonged, and when periods do come they come very heavy, and can contribute to lots of cramping, with passage of clots and anemia. Discussed the common symptoms related to the elvated hormonal levels, including increased facial hair, male pattern hair thinning, acne, and increased central abdominal girth. Discussed the interplay with difficulty getting when desired, but still possible, and therefore the need to contracept as appropriate and when needed. Discussed the role of weight loss as the primary, most important, and most likely to succeed, intervention, in achieving healthier status as regards PCOS, and ovulatory regular cycles. Additionally the very important relationship to elevated insulin levels, and blood sugars, and high risk of pre diabetes, progressing to diabetes as well as other metabolic syndromes related to this was discussed. Also discussed common interventions for some of the above, including if appropriate,, and progestin iuds, and provera. Since she could not void to give us a urine test an endometrial biopsy was out of the question today. However I am ordering a pelvic ultrasound and I asked her to be ready to pee at the next visit so that when we evaluate her we were able to do a test and proceed with an endometrial biopsy. Since she has been bleeding more less like a period for the last few days I am deferring prescription for Provera at this time until we evaluate further. Will re-attempt Pap smear and endometrial biopsy next visit after the ultrasound. A perhaps with widening her legs out and relaxing a little bit more we may have better success . It was in fact extremely difficult to get a good visual review of her cervical os today and so I could only see the edge of her cervix and the Pap was done blindly from that there was no abnormal finding in the exam other than the obesity and the irregular bleeding today consistent with menses. I offered her another referral back to the weight management program because she feels ready to work on it now and is motivated to proceed so I have placed that referral. She did ask about a referral to get the growths on her upper thigh evaluated but I will leave that to her primary care provider to place a surgical referral for that for now we will for focus on the important tasks of evaluating her endometrial lining, ensuring that there is no pathology there and proceeding most likely with a Mirena IU S after an endometrial biopsy. Orders: Orders Bacterial Vaginosis Panel Today E66.01 - Morbid (severe) obesity due to excess c alories, L68.0 - Hirsutism, N92.0 - Excessive and frequent menstruation with regular cycle, N92.6 - Irregular menstruation, unspecified, Z01.419 - Encounter for gynecological examination (general) (routine) without abnormal findings, Z68.43 - Body mass index [BMI] 50.0-59.9, adult CT NG by PCR Today E66.01 - Morbid (severe) obesity due to excess calories, L68.0 - Hirsutism, N92.0 - Excessive and frequent menstruation with regular cycle, N92.6 - Irregular menstruation, unspecified, Z01.419 - Encounter for gynecological examination (general) (routine) without abnormal findings, Z68.43 - Body mass index [BMI] 50.0-59.9, adult US pelvic and transvaginal Today E66.01 - Morbid (severe) obesity due to excess calories, L68.0 - Hirsutism, N92.0 - Excessive and frequent menstruation with regular cycle, N92.6 - Irregular menstruation, unspecified, Z68.43 - Body mass index [BMI] 50.0-59.9, adult Hemoglobin A1c Today D50.9 - Iron deficiency anemia, unspecified, E66.01 - Morbid (severe) obesity due to excess calories, L68.0 - Hirsutism, N92.0 - Excessive and frequent menstruation with regular cycle, N92.6 - Irregular menstruation, unspecified, Z68.43 - Body mass index [BMI] 50.0-59.9, adult HCG Quantitative Today D50.9 - Iron deficiency anemia, unspecified, E66.01 - Morbid (severe) obesity due to excess calories, L68.0 - Hirsutism, N92.0 - Excessive and frequent menstruation with regular cycle, N92.6 - Irregular menstruation, unspecified, Z68.43 - Body mass index [BMI] 50.0-59.9, adult Thyroid Stimulating Hormone Today D50.9 - Iron deficiency anemia, unspecified, E66.01 - Morbid (severe) obesity due to excess calories, L68.0 - Hirsutism, N92.0 - Excessive and frequent menstruation with regular cycle, N92.6 - Irregular menstruation, unspecified, Z68.43 - Body mass index [BMI] 50.0-59.9, adult Complete Blood Count no Diff Today D50.9 - Iron deficiency anemia, unspecified, E66.01 - Morbid (severe) obesity due to excess calories, L68.0 - Hirsutism, N92.0 - Excessive and frequent menstruation with regular cycle, N92.6 - I rregular menstruation, unspecified, Z68.43 - Body mass index [BMI] 50.0-59.9, adult Hepatitis B Surface Antigen Today D50.9 - Iron deficiency anemia, unspecified, E66.01 - Morbid (severe) obesity due to excess calories, L68.0 - Hirsutism, N92.0 - Excessive and frequent menstruation with regular cycle, N92.6 - Irregular menstruation, unspecified, Z68.43 - Body mass index [BMI] 50.0-59.9, adult Hepatitis C Antibody Today D50.9 - Iron deficiency anemia, unspecified, E66.01 - Morbid (severe) obesity due to excess calories, L68.0 - Hirsutism, N92.0 - Excessive and frequent menstruation with regular cycle, N92.6 - Irregular menstruation, unspecified, Z68.43 - Body mass index [BMI] 50.0-59.9, adult HIV Ab/Ag Today D50.9 - Iron deficiency anemia, unspecified, E66.01 - Morbid (severe) obesity due to excess calories, L68.0 - Hirsutism, N92.0 - Excessive and frequent menstruation with regular cycle, N92.6 - Irregular menstruation, unspecified, Z68.43 - Body mass index [BMI] 50.0-59.9, adult Syphilis Screen Today D50.9 - Iron deficiency anemia, unspecified, E66.01 - Morbid (severe) obesity due to excess calories, L68.0 - Hirsutism, N92.0 - Excessive and frequent menstruation with regular cycle, N92.6 - Irregular menstruation, unspecified, Z68.43 - Body mass index [BMI] 50.0-59.9, adult Pap Smear Today Z01.419 - Encounter for gynecological examination (general) (routine) without abnormal findings Referrals Medical Weight Management Referral D50.9 - Iron deficiency anemia, unspecified, E66.01 - Morbid (severe) obesity due to excess calories, L68.0 - Hirsutism, N92.0 - Excessive and frequent menstruation with regular cycle, N92.6 - Irregular menstruation, unspecified, Z68.43 - Body mass index [BMI] 50.0-59.9, adult Coding Level of Care Code New Pt Prev Care [id number] Diagnoses Morbid obesity E66.01 BMI 50.0-59.9, adult Z68.43 Menorrhagia N92.0 Irregular periods N92.6 Hirsutism L68.0 Iron deficiency anemia D50.9 Abnormal uterine bleeding (AUB) N93.9
[2023-04-21 15:05] VITALS: BP 134/80; BMI 51.3
== END 2023-04-21 16:22 | disposition home or self-care (01) ==
LOC: HO.HWSM 15:03
PROVIDERS: PCP Nurse Practitioner Acute Care; Visit Provider Advanced Practice Midwife
DX: Z01.411 Encounter for gynecological examination (general) (routine) with abnormal findings (principal); N92.0 Excessive and frequent menstruation with regular cycle; N92.6 Irregular menstruation, unspecified; E66.01 Morbid (severe) obesity due to excess calories; Z68.43 Body mass index [BMI] 50.0-59.9, adult; L68.0 Hirsutism; D50.9 Iron deficiency anemia, unspecified
CPT/HCPCS: 99204; 99385

== ENCOUNTER 2023-04-21 16:26 | Outpatient (REF) | payer OTHER, SELFPAY ==
[2023-04-21 17:50] LABS: Hematocrit 36.4 % (37.0-47.0); Hemoglobin 10.3 g/dl (12.0-16.0); Mean Corpuscular HGB Conc 28.3 g/dl (31.0-35.0); Mean Corpuscular Hemoglobin 21.5 pg (27.0-33.0); Mean Corpuscular Volume 76.2 fL (80.0-98.0); Platelet Count 331 X10*3/uL (160-400); Red Blood Count 4.78 X10*6/uL (4.20-5.50); Red Cell Distribution Width 17.9 % (11.0-16.0); White Blood Count 9.7 X10*3/uL (4.8-10.8)
[2023-04-21 18:23] LABS: Estimated Average Glucose 111 mg/dL; Hemoglobin A1c % 5.5 %
[2023-04-21 18:26] LABS: HCG Quantitative < 2 mIU/mL; Thyroid Stimulating Hormone 1.98 uIU/mL (0.32-4.0)
[2023-04-22 04:16] LABS: Syphilis Screen Nonreactive (Nonreactive)
[2023-04-22 04:43] LABS: HBsAGNum1 0.37 S/CO (0.00-0.99); HIV AB/AG Nonreactive (Nonreactive); HIV Num 1 0.04 S/CO (0.00-0.99); Hepatitis B Surface Antigen Negative (Negative); ~HepC Num1 0.11 S/CO (0.00-0.79); ~Hepatitis C Antibody Nonreactive (Nonreactive)
[2023-04-22 12:24] LABS: CT PCR NOT DETECTED (Not Detect.); NG PCR NOT DETECTED (Not Detect.)
[2023-04-22 15:17] LABS: BV Int Neg Control Negative (Negative); BV Int Pos Control Positive (Positive)
== END 2023-04-21 16:27 | disposition home or self-care (01) ==
LOC: HO.LAB 16:26
PROVIDERS: PCP Internal Medicine; Visit Provider Advanced Practice Midwife
DX: Z01.419 Encounter for gynecological examination (general) (routine) without abnormal findings (principal); Z11.4 Encounter for screening for human immunodeficiency virus [HIV]; N92.0 Excessive and frequent menstruation with regular cycle; L68.0 Hirsutism; D50.9 Iron deficiency anemia, unspecified; E66.01 Morbid (severe) obesity due to excess calories; Z68.43 Body mass index [BMI] 50.0-59.9, adult
CPT/HCPCS: 0353U; 83036; 84443; 84702; 85027; 86780; 86803; 87340; 87389; 87480; 87510; 87660

== ENCOUNTER 2023-04-27 13:20 | Outpatient (REF) | payer OTHER, SELFPAY ==
--- NOTE | ~2023-04-27 | US_ITS ---
EXAMINATION: US PELVIS CLINICAL INFORMATION: Excessive or frequent menstruation. COMPARISON: None available. TECHNIQUE: Ultrasound of the pelvis is performed using both transabdominal and transvaginal transducers along with Doppler. Transvaginal imaging is performed due to inadequate visualization transabdominally. FINDINGS: UTERUS: The uterus is anteverted and retroflexed measuring 13 x 5 x 7 cm for a volume of 236 mL. The double wall endometrial thickness is 4 mm. The uterus is smooth in contour and has normal myometrial echogenicity. No visible fibroid. ADNEXA: Both ovaries are visualized and appear unremarkable. There is normal color flow to the adnexa. There is no ovarian torsion. There is no pelvic ascites or fluid collection. Right ovary measures 3.7 x 2.8 x 2.5 cm for a volume of 13.6 mL. Left ovary measures 3.8 x 3.4 x 3.0 cm for a volume of 21.3 mL. US/US pelvic and transvaginal IMPRESSION: Negative exam.
== END 2023-04-27 13:21 | disposition home or self-care (01) ==
LOC: HO.US 13:20
PROVIDERS: PCP Internal Medicine; Visit Provider Advanced Practice Midwife
DX: N92.0 Excessive and frequent menstruation with regular cycle (principal); E66.01 Morbid (severe) obesity due to excess calories; Z68.43 Body mass index [BMI] 50.0-59.9, adult; L68.0 Hirsutism
CPT/HCPCS: 76830; 76856

== ENCOUNTER 2023-05-30 11:00 | Outpatient (AMB) | payer OTHER, SELFPAY ==
--- NOTE | 2023-05-30 10:57 | A.OFFVIS_ITS ---
Intake VS Expanded 05/30/23 11:04 Height 5 ft 6 in Weight 320 lb BMI 51.6 Intake Visit Reasons: VIDEO Re-Est SWL Allergies No Known Allergies Allergy (Verified 04/21/23 15:14) Medication List - Last Reconciled 05/30/23 by Lisa Hayden PA-C ferrous sulfate 325 mg PO BID HPI HPI Comments History of Present Illness Details 33 yo woman who started our SWL program in February 2022 at 303.8 lbs, she had appts until April 2022 and then stopped at 293 lbs. She wants to restart SWL program with us now. Was using Pure Protein shakes, does not remember bars,likes yogurt. Wakes at 7am, bed at 10 pm. Dinner at her house normalyy 6pm. She is not employed. Still has gym membership.States she got access to SWL classes about 2 weeks ago and complted them again. Has severe anemia, thought to be from AUB now taking iron supplements again and has appt with urogynecology physician provider Jul 05. Will also get contraceptive method at that time. Drinks Coke daily at dinner. No ETOH, no tobacco, no marijuana Pre op work up com pleted as follows: SWL classes -? 04/12 BH appts? -? not e from 03/24 - NOT cleared. RD appts - not cleared H py shira - negative La bs - anemia, vit d deficiency CXR -n ormal ECG - nsr UL S -fatty liver UGI - there is no mas s or fixed area of narrowing. Trace esophageal dysmoti lity. Minimal miller sient sliding-type hiatal hernia ? No reflux d emonstrated under fluoroscopy.No del ay in gastric empt anthony? ? PFSH Surgical History History of tubal ligation History of cholecystectomy History of Family History Father Diabetes Hypertension Mother Hypertension Diabetes High cholesterol Heart problem Family/Other Mental health disorder Substance use disorder Maternal Aunt Breast cancer, Onset Age: 65 Maternal Uncle Prostate CA Sister Diabetes Brother Diabetes Brother No problems noted. Son No problems noted. Son ADHD Son ADHD Other Throat cancer Social History (Reviewed 08/17/23 @ 15:17 by MIC Dodson Housing: Apartment Alcohol intake: never Patient Tobacco Use Status: Current everyday Tobacco user Tobacco use type: Cigarette Cigarettes Per Day: 6 e-Cigarette/Vaping Use: Never Used Second Hand Smoke Exposure: No service: No Current occupational status: unemployed Cognitive needs: No Hearing needs: No Vision needs: No Female Reproductive History Menstrual Age of Menarche: 13 Assessment & Plan Assessment & Plan (1) Morbid obesity: Code(s): E66.01 - Morbid (severe) obesity due to excess calories Plan: This is a 33 yo woman with morbid obesity who will re - start SWL program to prepare for bariatric surgery. Blood work, CXR, and ECG have been ordered. She is being scheduled for RD and BH initial consultations. She will review SWL classes with Dilia. 1. Adequate sleep of 7-8 hours per night discussed 2. Healthy meal plan - stop all soda and OJ All meals/MR's need to take 20 minutes to complete 9 am - 30 gram shake - Pur Protein 12 pm - 30 gram shake 3 pm- bar or yogurt 6 pm- dinner of 12 forks of lean protein, 12 forks vegetable, 1 serving fruit 9pm - bar or yogurt Exercise - Cardio 5 d week = treadmill at speed 3.0, incline 2 - 6 - to burn 300 calories The importance of avoiding and breast feeding for at least 18 months after bariatric surgery was discussed in the information session and was reinforced today. NEEDS CONTRACEPTION Pt will purchase body composition analyzer (recommended list given to patient) and weight herself weekly. Next appt with me in 3 weeks. Text me with any questions and weekly weights. Patient is morbidly obese and is not considered stable at this time.?I spent a total of 45 minutes reviewing/updating records, examining the patient and counseling the patient on weight management as detailed above. (2) ALLYSON (obstructive sleep apnea): Comment: Mild by February 2022, does not need CPAP Code(s): G47.33 - Obstructive sleep apnea (adult) (pediatric) Plan: Mild - does not need CPAP (3) Anemia: Code(s): D64.9 - Anemia, unspecified Orders: Orders Vitamin B12 and Folate Today D64.9 - Anemia, unspecified, E66.01 - Morbid (severe) obesity due to excess calories, F41.9 - Anxiety disorder, unspecified, G47.33 - Obstructive sleep apnea (adult) (pediatric), Z01.818 - Encounter for other preprocedural examination Comprehensive Met. Panel Today D64.9 - Anemia, unspecified, E66.01 - Morbid (severe) obesity due to excess calories, F41.9 - Anxiety disorder, unspecified, G47.33 - Obstructive sleep apnea (adult) (pediatric), Z01.818 - Encounter for other preprocedural examination Ferritin Today D64.9 - Anemia, unspecified, E66.01 - Morbid (severe) obesity due to excess calories, F41.9 - Anxiety disorder, unspecified, G47.33 - Obstructive sleep apnea (adult) (pediatric), Z01.818 - Encounter for other preprocedural examination PTHI Today D64.9 - Anemia, unspecified, E66.01 - Morbid (severe) obesity due to excess calories, F41.9 - Anxiety disorder, unspecified, G47.33 - Obstructive sleep apnea (adult) (pediatric), Z01.818 - Encounter for other preprocedural examination Vitamin D 25-OH Total Today D64.9 - Anemia, unspecified, E66.01 - Morbid (severe) obesity due to excess calories, F41.9 - Anxiety disorder, unspecified, G47.33 - Obstructive sleep apnea (adult) (pediatric), Z01.818 - Encounter for other preprocedural examination Hemoglobin A1c Today D64.9 - Anemia, unspecified, E66.01 - Morbid (severe) obesity due to excess calories, F41.9 - Anxiety disorder, unspecified, G47.33 - Obstructive sleep apnea (adult) (pediatric), Z01.818 - Encounter for other preprocedural examination Insulin Today D64.9 - Anemia, unspecified, E66.01 - Morbid (severe) obesity due to excess calories, F41.9 - Anxiety disorder, unspecified, G47.33 - Obstructive sleep apnea (adult) (pediatric), Z01.818 - Encounter for other preprocedural examination Lipid Panel Today D64.9 - Anemia, unspecified, E66.01 - Morbid (severe) obesity due to excess calories, F41.9 - Anxiety disorder, unspecified, G47.33 - Obstructive sleep apnea (adult) (pediatric), Z01.818 - Encounter for other preprocedural examination IRON PROFILE Today D64.9 - Anemia, unspecified, E66.01 - Morbid (severe) obesity due to excess calories, F41.9 - Anxiety disorder, unspecified, G47.33 - Obstructive sleep apnea (adult) (pediatric), Z01.818 - Encounter for other preprocedural examination Complete Blood Count Auto Diff Today D64.9 - Anemia, unspecified, E66.01 - Morbid (severe) obesity due to excess calories, F41.9 - Anxiety disorder, unspecified, G47.33 - Obstructive sleep apnea (adult) (pediatric), Z01.818 - Encounter for other preprocedural examination Zinc Today D64.9 - Anemia, unspecified, E66.01 - Morbid (severe) obesity due to excess calories, F41.9 - Anxiety disorder, unspecified, G47.33 - Obstructive sleep apnea (adult) (pediatric), Z01.818 - Encounter for other preprocedural examination Vitamin B1 Today D64.9 - Anemia, unspecified, E66.01 - Morbid (severe) obesity due to excess calories, F41.9 - Anxiety disorder, unspecified, G47.33 - Obstructive sleep apnea (adult) (pediatric), Z01.818 - Encounter for other preprocedural examination Vitamin A Today D64.9 - Anemia, unspecified, E66.01 - Morbid (severe) obesity due to excess calories, F41.9 - Anxiety disorder, unspecified, G47.33 - Obstructive sleep apnea (adult) (pediatric), Z01.818 - Encounter for other preprocedural examination C Reactive Protein Today D64.9 - Anemia, unspecified, E66.01 - Morbid (severe) obesity due to excess calories, F41.9 - Anxiety disorder, unspecified, G47.33 - Obstructive sleep apnea (adult) (pediatric), Z01.818 - Encounter for other preprocedural examination TSH reflex Free T4 Today D64.9 - Anemia, unspecified, E66.01 - Morbid (severe) obesity due to excess calories, F41.9 - Anxiety disorder, unspecified, G47.33 - Obstructive sleep apnea (adult) (pediatric), Z01.818 - Encounter for other preprocedural examination XR chest 2V Today D64.9 - Anemia, unspecified, E66.01 - Morbid (severe) obesity due to excess calories, F41.9 - Anxiety disorder, unspecified, G47.33 - Obstructive sleep apnea (adult) (pediatric), Z01.818 - Encounter for other preprocedural examination ECG 12 lead EKG Today D64.9 - Anemia, unspecified, E66.01 - Morbid (severe) obesity due to excess calories, F41.9 - Anxiety disorder, unspecified, G47.33 - Obstructive sleep apnea (adult) (pediatric), Z01.818 - Encounter for other preprocedural examination Referrals Behavioral Health Referral D64.9 - Anemia, unspecified, E66.01 - Morbid (severe) obesity due to excess calories, F41.9 - Anxiety disorder, unspecified, G47.33 - Obstructive sleep apnea (adult) (pediatric), Z01.818 - Encounter for other preprocedural examination Nutrition/Dietitian Referral D64.9 - Anemia, unspecified, E66.01 - Morbid (severe) obesity due to excess calories, F41.9 - Anxiety disorder, unspecified, G47.33 - Obstructive sleep apnea (adult) (pediatric), Z01.818 - Encounter for other preprocedural examination Telehealth Telehealth Location of provider rendering services: practice address Location of patient: address on file Patient Identification confirmed using: Name, : Yes Telehealth method: video Patient verbally consented to treatment: Yes Patient verbally consented to billing insurance company: Yes Patient informed of any privacy concerns related to visit: Yes Coding Level of Care Code Tele Est Pt Level 4 (01336) Diagnoses Morbid obesity E66.01 ALLYSON (obstructive sleep apnea) G47.33 Anemia D64.9
[2023-05-30 11:04] VITALS: BMI 51.6
== END 2023-05-30 11:28 | disposition home or self-care (01) ==
LOC: HO.HBS 11:25
PROVIDERS: PCP Internal Medicine; Visit Provider Physician Assistant
DX: E66.01 Morbid (severe) obesity due to excess calories (principal); Z68.43 Body mass index [BMI] 50.0-59.9, adult; G47.33 Obstructive sleep apnea (adult) (pediatric); D64.9 Anemia, unspecified
CPT/HCPCS: 99215

== ENCOUNTER → 2023-05-30 11:00 | Outpatient (BNVA) | payer OTHER, SELFPAY | PROVIDERS: PCP Internal Medicine; Visit Provider Physician Assistant | DX: E66.01 Morbid (severe) obesity due to excess calories (principal); D64.9 Anemia, unspecified; Z01.818 Encounter for other preprocedural examination; G47.33 Obstructive sleep apnea (adult) (pediatric); F41.9 Anxiety disorder, unspecified ==

== ENCOUNTER 2023-06-03 08:53 | Outpatient (REF) | payer OTHER, SELFPAY ==
--- NOTE | ~2023-06-03 | XR_ITS ---
EXAMINATION: XR CHEST 2 VIEWS CLINICAL INFORMATION: Morbid obesity. COMPARISON: Chest radiograph dated 03/13/2022. TECHNIQUE: Frontal and lateral views of the chest were obtained. FINDINGS: The heart, great vessels, pulmonary vasculature and mediastinum are normal. The lungs show no focal infiltrate, effusion or pneumothorax. An azygos fissure is noted. There is a marked thoracic dextroscoliosis. There is no acute osseous abnormality. XR/XR chest 2V IMPRESSION: No active cardiopulmonary disease.
[2023-06-03 09:08] LABS: MANUAL DIFF FLAG NO
--- NOTE | 2023-06-03 09:10 | ECG_ITS ---
Test Reason : e66.01 Blood Pressure : / mmHG Vent. Rate : 092 BPM Atrial Rate : 092 BPM P-R Int : 156 ms QRS Dur : 076 ms QT Int : 348 ms P-R-T Axes : 039 019 013 degrees QTc Int : 430 ms Normal sinus rhythm Normal ECG When compared with ECG of 12-OCT-2022 19:59, No significant change was found Referred By: Lisa Hayden Electronically Signed By:EDMUNDO PHAN
[2023-06-03 09:59] LABS: Estimated Average Glucose 108 mg/dL; Hemoglobin A1c % 5.4 % (<6.0)
[2023-06-03 10:03] LABS: Basophils Absolute Auto 0.1 X10*3/uL (0.0-0.2); Basophils Percent Auto 0.6 % (0-2); Eosinophils Absolute Auto 0.2 X10*3/uL (0.0-0.4); Eosinophils Percent Auto 1.6 % (0-4); Hematocrit 38.7 % (37.0-47.0); Hemoglobin 10.7 g/dl (12.0-16.0); Imm Gran Abs Auto 0.07 X10*3/uL (0.00-0.03); Imm Gran Pct Auto 0.5 % (0.0-0.4); Lymphocytes Absolute Auto 2.1 X10*3/uL (1.2-4.9); Lymphocytes Percent Auto 15.6 % (20-40); Mean Corpuscular HGB Conc 27.6 g/dl (31.0-35.0); Mean Corpuscular Hemoglobin 20.8 pg (27.0-33.0); Mean Corpuscular Volume 75.3 fL (80.0-98.0); Mean Platelet Volume 12.5 fL (9.4-12.3); Monocytes Absolute Auto 0.9 X10*3/uL (0.1-1.2); Monocytes Percent Auto 6.8 % (2-11); Neutrophils Absolute Auto 9.9 x10*3/uL (2.0-8.3); Neutrophils Percent Auto 74.9 % (45-73); Platelet Count 335 X10*3/uL (160-400); Red Blood Count 5.14 X10*6/uL (4.20-5.50); Red Cell Distribution Width 17.5 % (11.0-16.0); White Blood Count 13.2 X10*3/uL (4.8-10.8)
[2023-06-03 10:29] LABS: Alanine Aminotransferase 34 U/L (0-31); Albumin Level 4.3 g/dL (3.5-5.0); Alkaline Phosphatase 121 U/L (39-117); Anion Gap 15 (12-20); Aspartate Amino Transferase 20 U/L (5-31); Bilirubin Total 0.8 mg/dL (0.0-1.0); Blood Urea Nitrogen 13 mg/dL (9-16); C Reactive Protein 0.86 mg/dL (< or = 0.50); Calcium 9.2 mg/dL (8.4-10.2); Carbon Dioxide 21 mmol/L (22-29); Chloride 107 mmol/L (96-108); Cholesterol 101 mg/dL (<200); Estimated Glomerular Filt Rate > 60; Glucose Random 116 mg/dL (60-115); HDL Cholesterol 30 mg/dL (>40); Iron 30 mcg/dL (30-160); LDL Cholesterol Calculated 50 mg/dL (<100); Percent Iron Saturation 8 % (15-50); Potassium 4.1 mmol/L (3.3-5.1); Sodium 139 mmol/L (135-145); Total Iron Binding Capacity 370 mcg/dL (228-428); Total Protein 7.6 g/dL (6.5-8.0); Triglycerides 106 mg/dL (<150); Unsaturated Iron Binding 340 ug/dL
[2023-06-03 10:49] LABS: Ferritin 15 ng/mL (10-122); Insulin 73 uU/mL (2-29); Vitamin D 25-OH Total 15.4 ng/mL (>30)
[2023-06-03 10:53] LABS: Folate 11.8 ng/mL (> or = 4.0); Vitamin B12 503 pg/mL (200-900)
[2023-06-06 13:09] LABS: Calcium (PTHI) 9.2 mg/dL (8.6-10.2); PTHI 122 pg/mL (16-77)
[2023-06-07 13:03] LABS: Zinc 68 mcg/dL (60-130)
[2023-06-07 17:27] LABS: Vitamin B1 12 nmol/L (8-30)
[2023-06-09 11:33] LABS: Vitamin A 40 mcg/dL (38-98)
== END 2023-06-03 08:54 | disposition home or self-care (01) ==
LOC: HO.XRAY 08:53
PROVIDERS: PCP Internal Medicine; Visit Provider Physician Assistant
DX: Z01.818 Encounter for other preprocedural examination (principal); D64.9 Anemia, unspecified; E66.01 Morbid (severe) obesity due to excess calories; G47.33 Obstructive sleep apnea (adult) (pediatric); F41.9 Anxiety disorder, unspecified
CPT/HCPCS: 36415; 71046; 80053; 80061; 82306; 82607; 82728; 82746; 83036; 83525; 83540; 83970; 84425; 84443; 84590; 84630; 85025; 86140; 93005

== ENCOUNTER 2023-07-05 14:46 | Outpatient (AMB) | payer OTHER, SELFPAY ==
--- NOTE | 2023-07-05 14:48 | A.OFFVIS_ITS ---
Intake Vital Signs 07/05/23 14:53 Height 5 ft 6 in Weight 319 lb 10.724 oz BMI 51.6 BP 122/72 Intake Visit Reasons: US Follow up/EMB Telephone Maintenance Mechanic Required: Yes Telephone Maintenance Mechanic Language: Sri Lankan Information Interpreted: non-clinical & clinical Accompanied by: Self / Same As Patient Allergies No Known Allergies Allergy (Verified 07/05/23 14:48) Medication List - Last Reconciled 07/05/23 by Deborah Abreu CNM cholecalciferol (vitamin D3) 50 mcg PO DAILY ferrous sulfate 325 mg PO DAILY Is last menstrual period known: Yes Last menstrual period: 07/04/23 HPI US Follow up/EMB HPI Details This is a visit to discuss patient's ultrasound and possibly do an a.m. be if required. I also reviewed her Pap with her and lab work that have been done. Since her last visit with me her periods have resumed normally she has been attending the bariatric program and checking in with Lisa and had blood work done and is working the program and exercising going to the gym (except when she had the flu) and working on gradually trying to lose weight she is seeing progress and when she cut out the soda and other abundant carbs she is noticing that she is feeling better. She is feeling hopeful. She is very happy that her periods have come back on their own. [facility] Surgical History History of tubal ligation History of cholecystectomy History of Family History Father Diabetes Hypertension Mother Hypertension Diabetes High cholesterol Heart problem Family/Other Mental health disorder Substance use disorder Maternal Aunt Breast cancer, Onset Age: 65 Maternal Uncle Prostate CA Sister Diabetes Brother Diabetes Brother No problems noted. Son No problems noted. Son ADHD Son ADHD Other Throat cancer Social History Housing: Apartment Alcohol intake: never Patient Tobacco Use Status: Current everyday Tobacco user Tobacco use type: Cigarette Cigarettes Per Day: 6 e-Cigarette/Vaping Use: Never Used Second Hand Smoke Exposure: No service: No Current occupational status: unemployed Cognitive needs: No Hearing needs: No Vision needs: No Female Reproductive History Menstrual Age of Menarche: 13 Date of last menstrual period: 07/04/23 Physical Exam Vital Signs: Last Vital Signs BP 122/72 07/05/23 14:53 BMI result Body Mass Index 51.6 Results Reviewed Results Reviewed: Patient: Marily Baptiste MR#: [id number] : 1990 Acct:[id number] Age/Sex: 33 / F ADM Date: 04/27/23 Loc: HO.US Attending Dr: Deborah Abreu CNM Ordering Physician: Deborah Abreu CNM Date of Service: 04/27/23 Procedure(s): US pelvic and transvaginal Accession Number(s): [id number] cc: Deborah Abreu CNM~ EXAMINATION: US PELVIS CLINICAL INFORMATION: Excessive or frequent menstruation. COMPARISON: None available. TECHNIQUE: Ultrasound of the pelvis is performed using both transabdominal and transvaginal transducers along with Doppler. Transvaginal imaging is performed due to inadequate visualization transabdominally. FINDINGS: UTERUS: The uterus is anteverted and retroflexed measuring 13 x 5 x 7 cm for a volume of 236 mL. The double wall endometrial thickness is 4 mm. The uterus is smooth in contour and has normal myometrial echogenicity. No visible fibroid. ADNEXA: Both ovaries are visualized and appear unremarkable. There is normal color flow to the adnexa. There is no ovarian torsion. There is no pelvic ascites or fluid collection. Right ovary measures 3.7 x 2.8 x 2.5 cm for a volume of 13.6 mL. Left ovary measures 3.8 x 3.4 x 3.0 cm for a volume of 21.3 mL. US/US pelvic and transvaginal IMPRESSION: Negative exam. Dictated By: Chris Lemus MD Signed By: <Electronically signed by Chris Lemus MD in OV> 04/28/23 1642 DD/ 1400 TD/TT: Valet Parking Attendant: TESFAYE +reviewed her Pap and also lab work that have been done. Assessment & Plan Assessment & Plan (1) Anemia: Code(s): D64.9 - Anemia, unspecified (2) BMI 50.0-59.9, adult: Code(s): Z68.43 - Body mass index [BMI] 50.0-59.9, adult (3) Irregular periods: Comment: Since April 2023 are becoming regular since she is starting to lose weight. Code(s): N92.6 - Irregular menstruation, unspecified (4) Cervical cancer screening: Comment: 04/21/23 Pap is negative with negative HPV; Code(s): Z12.4 - Encounter for screening for malignant neoplasm of cervix Plan This is a visit to discuss patient's ultrasound and possibly do an a.m. be if required. I also reviewed her Pap with her and lab work that have been done. Since her last visit with me her periods have resumed normally she has been attending the bariatric program and checking in with Lisa and had blood work done and is working the program and exercising going to the gym (except when she had the flu) and working on gradually trying to lose weight she is seeing progress and when she cut out the soda and other abundant carbs she is noticing that she is feeling better. She is feeling hopeful. She is very happy that her periods have come back on their own. Reviewed her pelvic ultrasound her labs and also some of her other labs that have been done. She is feeling hopeful that if she continues her progress she will lose the weight. She is noticing she is feeling better and we discussed ways to tie into that feeling to help keep her going. Since she is now getting regular menses at the end of each month without intervention and her pelvic ultrasound was completely within normal limits. She may not need an endometrial biopsy after all. I urged her to continue with her excellent hard work and if she ever does miss a period and especially if she misses a period for 3 months in a row know that we would want to give her something to help bring a period on and so she should call and be seen and if she went extended periods and did not continue her progress we may be discussing more invasive ways of evaluating everything but for now she is doing well. Since she is actively involved with the bariatric program we will see her next year she has her tubal ligation for control so she is not need of control and so for now discussion of the Mirena can be put on hold. Coding Level of Care Code Est Pt Level 3 (82168) Diagnoses Anemia D64.9 BMI 50.0-59.9, adult Z68.43 Irregular periods N92.6 Cervical cancer screening Z12.4
[2023-07-05 14:53] VITALS: BP 122/72; BMI 51.6
== END 2023-07-05 15:44 | disposition home or self-care (01) ==
PROVIDERS: PCP Internal Medicine; Visit Provider Advanced Practice Midwife
DX: D64.9 Anemia, unspecified (principal); Z68.43 Body mass index [BMI] 50.0-59.9, adult; N92.6 Irregular menstruation, unspecified; Z12.4 Encounter for screening for malignant neoplasm of cervix
CPT/HCPCS: 99213

== ENCOUNTER → 2023-07-05 14:46 | Outpatient (BNVA) | payer OTHER, SELFPAY | PROVIDERS: PCP Internal Medicine; Visit Provider Advanced Practice Midwife | DX: Z12.4 Encounter for screening for malignant neoplasm of cervix (principal); N92.6 Irregular menstruation, unspecified; D64.9 Anemia, unspecified | CPT/HCPCS: 99212 ==

== ENCOUNTER 2023-07-13 12:49 | Outpatient (AMB) | payer OTHER, SELFPAY ==
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
== END 2023-07-13 13:15 | disposition home or self-care (01) ==
LOC: HO.HBST 12:49
PROVIDERS: PCP Internal Medicine; Visit Provider Counselor Mental Health
DX: F43.23 Adjustment disorder with mixed anxiety and depressed mood (principal)
CPT/HCPCS: 90791

== ENCOUNTER → 2023-07-13 12:49 | Outpatient (BNVA) | payer OTHER, SELFPAY | PROVIDERS: PCP Internal Medicine; Visit Provider Counselor Mental Health ==

== ENCOUNTER → 2023-07-15 15:12 | Outpatient (BNVA) | payer OTHER, SELFPAY | PROVIDERS: PCP Internal Medicine; Visit Provider Dietitian, Registered | DX: E66.9 Obesity, unspecified (principal); Z68.43 Body mass index [BMI] 50.0-59.9, adult | CPT/HCPCS: 97803 ==

== ENCOUNTER 2023-08-10 11:49 | Outpatient (AMB) | payer OTHER, SELFPAY ==
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
== END 2023-08-10 12:00 | disposition home or self-care (01) ==
PROVIDERS: PCP Internal Medicine; Visit Provider Counselor Mental Health
DX: F50.81 Binge eating disorder (principal); F43.23 Adjustment disorder with mixed anxiety and depressed mood
CPT/HCPCS: 90837

== ENCOUNTER → 2023-08-10 11:49 | Outpatient (BNVA) | payer OTHER, SELFPAY | PROVIDERS: PCP Internal Medicine; Visit Provider Counselor Mental Health ==

== ENCOUNTER 2023-08-22 14:00 | Outpatient (AMB) | payer OTHER, SELFPAY ==
--- NOTE | 2023-08-22 11:48 | A.OFFVIS_ITS ---
Intake VS Expanded 08/22/23 13:50 Height 5 ft 6 in Weight 315 lb BMI 50.8 Intake Visit Reasons: VIDEO F/U SWL Allergies No Known Allergies Allergy (Verified 07/05/23 14:48) HPI HPI Comments History of Present Illness Details 33 yo woman who started our SWL program in February 2022 at 303.8 lbs, she had appts until April 2022 and then stopped at 293 lbs. Had an appt with me in May 2023 at 320 lbs. Not following meal or exercise - but doesn't want to stop our program. Does not have a scale yet. Became very tearful. Pre op work up completed as follows: SWL classes -? 04/12 appts? -?NOT cleared. Has been seeing Michela, next appt 08/24 appts - NOT cleared, no follow up scheduled H pylori - negative Labs - anemia, vit d deficiency CXR -normal ECG - nsr ULS -fatty liver UGI - there is no mass or fixed area of narrowing. Trace esophageal dysmotility. Minimal transient sliding-type hiatal hernia ? No reflux demonstrated under fluoroscopy.No delay in gastric emptying? Contraception ? ? [facility] Medical History (Updated 08/22/23 @ 12:38 by Lisa Hayden PA-C) Sleep apnea Strep pharyngitis Surgical History History of tubal ligation History of cholecystectomy History of Family History Father Diabetes Hypertension Mother Hypertension Diabetes High cholesterol Heart problem Family/Other Mental health disorder Substance use disorder Maternal Aunt Breast cancer, Onset Age: 65 Maternal Uncle Prostate [place] Sister Diabetes Brother Diabetes Brother No problems noted. Son No problems noted. Son ADHD Son ADHD Other Throat cancer Social History Housing: Apartment Alcohol intake: never Patient Tobacco Use Status: Current everyday Tobacco user Tobacco use type: Cigarette Cigarettes Per Day: 6 e-Cigarette/Vaping Use: Never Used Second Hand Smoke Exposure: No service: No Current occupational status: unemployed Cognitive needs: No Hearing needs: No Vision needs: No Female Reproductive History Menstrual Age of Menarche: 13 Assessment & Plan Assessment & Plan (1) Morbid obesity: Code(s): E66.01 - Morbid (severe) obesity due to excess calories Plan: This is patients second time in our program, but has not started since appt. She wants to try to start the meal plan now - has Rebuild powder at home 9 am - Rebuild shake with water or [facility] 12 pm - same shake 3 pm- bar 6 pm- dinner of 12 forks of lean protein, 12 forks vegetable, 1 serving fruit 9pm - bar Exercise - does not have membership but will get one. speed 3.0, incline 1-6, 300 calories, 5 d/ week She will purchase a scale now, start the above routines and text me her weekly weights and questions. No appt made at this time. If she progresses will restart appts. Patient is still morbidly obese and is not considered stable at this time. I spent 25 minutes in total speaking with the patient via video conference counseling , reviewing records and charting in patients chart. . (2) ALLYSON (obstructive sleep apnea): Comment: Mild by SS February 2022, does not need CPAP Code(s): G47.33 - Obstructive sleep apnea (adult) (pediatric) (3) Abnormal uterine bleeding (AUB): Code(s): N93.9 - Abnormal uterine and vaginal bleeding, unspecified Plan see above Telehealth Telehealth Location of provider rendering services: practice address Location of patient: address on file Patient Identification confirmed using: Name, : Yes Telehealth method: video Patient verbally consented to treatment: Yes Patient verbally consented to billing insurance company: Yes Patient informed of any privacy concerns related to visit: Yes Coding Level of Care Code Tele Est Pt Level 4 (89633) Diagnoses Morbid obesity E66.01 ALLYSON (obstructive sleep apnea) G47.33 Abnormal uterine bleeding (AUB) N93.9
[2023-08-22 13:50] VITALS: BMI 50.8
== END 2023-08-22 14:42 | disposition home or self-care (01) ==
LOC: HO.HBS 14:18
PROVIDERS: PCP Internal Medicine; Visit Provider Physician Assistant
DX: E66.01 Morbid (severe) obesity due to excess calories (principal); G47.33 Obstructive sleep apnea (adult) (pediatric); N93.9 Abnormal uterine and vaginal bleeding, unspecified
CPT/HCPCS: 99214

== ENCOUNTER → 2023-08-22 14:00 | Outpatient (BNVA) | payer OTHER, SELFPAY | PROVIDERS: PCP Internal Medicine; Visit Provider Physician Assistant | DX: E66.01 Morbid (severe) obesity due to excess calories (principal); G47.33 Obstructive sleep apnea (adult) (pediatric); N93.9 Abnormal uterine and vaginal bleeding, unspecified ==

== ENCOUNTER 2023-08-24 10:30 | Outpatient (AMB) | payer OTHER, SELFPAY ==
--- NOTE | 2023-08-24 11:02 | A.OFFWM_ITS ---
Intake Intake Visit Reasons: VIDEO BH F/U Allergies No Known Allergies Allergy (Verified 07/05/23 14:48) [facility] Medical History (Updated 08/22/23 @ 12:38 by Lisa Hayden PA-C) Sleep apnea Strep pharyngitis Surgical History History of tubal ligation History of cholecystectomy History of Family History Father Diabetes Hypertension Mother Hypertension Diabetes High cholesterol Heart problem Family/Other Mental health disorder Substance use disorder Maternal Aunt Breast cancer, Onset Age: 65 Maternal Uncle Prostate [place] Sister Diabetes Brother Diabetes Brother No problems noted. Son No problems noted. Son ADHD Son ADHD Other Throat cancer Social History Housing: Apartment Alcohol intake: never Patient Tobacco Use Status: Current everyday Tobacco user Tobacco use type: Cigarette Cigarettes Per Day: 6 e-Cigarette/Vaping Use: Never Used Second Hand Smoke Exposure: No service: No Current occupational status: unemployed Cognitive needs: No Hearing needs: No Vision needs: No Female Reproductive History Menstrual Age of Menarche: 13 Behavioral Health Assessment Weight Management Therapy Therapy Notes Details Pt Presents for a follow up. INTERVENTIONS: -Cognitive restructuring for negative co re beliefs and negative self-talk that supports unhealthy habits. Psychoeducation about current patterns and cycles where she -Created a behavioral activation plan fo r habit building. - Provided with strategies to manage ups oming holidays and remain consistent. - Processed outcomes from last appointme nt with WMP-provider. plan: pt will continue receiving support with habit building and changing behavioral patterns leading to current lifestyle issues. However, if patient is D/C from practice then services with this provider will end. Assessment & Plan Assessment & Plan (1) Binge eating disorder: Code(s): F50.81 - Binge eating disorder (2) Adjustment disorder with mixed anxiety and depressed mood: Code(s): F43.23 - Adjustment disorder with mixed anxiety and depressed mood Plan Pt will be seen again in 4-6 weeks. Next alix: 10/05/2023 at 11am - Telehealth. Telehealth Telehealth Location of provider rendering services: other ([place] [address]) Location of patient: address on file Patient Identification confirmed using: Name, : Yes Telehealth method: voice only Patient verbally consented to treatment: Yes Patient verbally consented to billing insurance company: Yes Patient informed of any privacy concerns related to visit: No Minutes spent on Phone/Video with Pt.: 45 Coding Level of Care Code Established Pt Tele Psytx 45 mins ([id number]) Patient Type Established Diagnoses Binge eating disorder F50.81 Adjustment disorder with mixed anxiety and depressed mood F43.23 Time Spent (min) 45
== END 2023-08-24 11:15 | disposition home or self-care (01) ==
LOC: HO.HBST 10:47
PROVIDERS: PCP Internal Medicine; Visit Provider Counselor Mental Health
DX: F50.81 Binge eating disorder (principal); F43.23 Adjustment disorder with mixed anxiety and depressed mood
CPT/HCPCS: 90834

== ENCOUNTER → 2023-08-24 10:30 | Outpatient (BNVA) | payer OTHER, SELFPAY | PROVIDERS: PCP Internal Medicine; Visit Provider Counselor Mental Health ==

== ENCOUNTER 2023-09-17 15:22 | Emergency (ER) | payer OTHER, SELFPAY ==
[2023-09-17 17:13] VITALS: BP 158/93; PULSE 108; RESP 18; TEMP 37.2; O2SAT 97; BMI 51.6
--- NOTE | 2023-09-17 17:14 | ED.GENADULT ---
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 Had URI last week which resolved. No chest pain, shortness of breath, skin rash, neck pain or neck stiffness, vomiting, diarrhea, abdominal pain. Related Data Previous Rx's Medication Instructions Recorded ferrous sulfate 325 mg (65 mg 325 mg PO DAILY #90 tabs 05/30/23 iron) tablet cholecalciferol (vitamin D3) 50 50 mcg PO DAILY #30 caps 06/03/23 mcg (2,000 unit) capsule amoxicillin 500 mg capsule 500 mg PO BID #20 caps 09/17/23 Allergies Allergy/AdvReac Type Severity Reaction Status Date / Time No Known Allergies Allergy Verified 09/17/23 17:13 Review of Systems Review of Systems: Yes all other systems are reviewed and are negative Constitutional: Constitutional: Reports no additional constitutional complaints, Reports body ache(s), Denies chills, Denies fever(s), Reports headache(s) and Denies weakness Eyes: Eyes: Reports no additional eye complaints and Denies change in vision ENT: Reports system reviewed and no additional complaints, except as documented, Denies dizziness, Reports otalgia, Reports headache(s), Reports nasal congestion, Denies nasal discharge and Denies neck pain Cardiovascular: Cardiovascular: Reports no additional cardiovascular complaints, Denies chest pain, Denies leg edema and Denies dyspnea Respiratory: Respiratory: Reports no additional respiratory complaints, Reports cough and Denies dyspnea Gastrointestinal: Gastrointestinal: Reports no additional gastrointestinal complaints, Denies abdominal pain, Denies diarrhea, Denies nausea and Denies vomiting Genitourinary: Genitourinary: Reports no additional female genitourinary complaints and Denies urinary incontinence Musculoskeletal: Musculoskeletal: Reports no additional musculoskeletal complaints, Denies back pain, Denies arthralgias, Denies joint swelling, Denies neck pain, Denies numbness and Denies tingling Integumentary/Breasts: Skin/Breast: Reports system reviewed and no additional complaints, except as docu and Denies rash Neurologic: Reports system reviewed and no additional complaints, except as documented, Denies Abnormal speech present, Denies dizziness, Reports headache(s), Denies numbness, Denies tingling and Denies weakness PMFSH Past Medical History Attestation statement: The following information was validated with the patient. Source: old records reviewed and nursing notes reviewed Onset Date is defined in the Problem List Problems that require an onset date and time if occurred within 24 hrs of arrival to the ED Aortic Dissection and Rupture; Neurologic impairment; Cardiopulmonary Arrest; Endotracheal Intubation; Insertion or Replacement of Mechanical Circulatory Assist Device Medical History Sleep apnea Strep pharyngitis Surgical History History of tubal ligation History of cholecystectomy History of Family History Family History Father Diabetes Hypertension Mother Hypertension Diabetes High cholesterol Heart problem Family/Other Mental health disorder Substance use disorder Maternal Aunt Breast cancer, Onset Age: 65 Maternal Uncle Prostate CA Sister Diabetes Brother Diabetes Brother No problems noted. Son No problems noted. Son ADHD Son ADHD Other Throat cancer Social History Social History Housing: Apartment Alcohol intake: never Patient Tobacco Use Status: Current everyday Tobacco user Tobacco use type: Cigarette Cigarettes Per Day: 6 e-Cigarette/Vaping Use: Never Used Second Hand Smoke Exposure: No Advance Directives: No Advance Directives Information Provided: No service: No Current occupational status: unemployed Cognitive needs: No Hearing needs: No Vision needs: No Physical Exam ED Vital Signs: Vital Signs - 24 hr 09/17/23 17:13 09/17/23 18:12 Temperature 99.0 F 100 F Pulse Rate 108 H 112 H Respiratory Rate 18 18 Blood Pressure 158/93 H 136/70 Pulse Oximetry 97 98 Oxygen Delivery Method Room Air Room Air BMI result Body Mass Index 51.6 Const General: cooperative, healthy appearing, comfortable and no acute distress Orientation/consciousness: patient oriented x3 Limitations: no limitations HENMT Head: Yes normal to inspection Ears: hearing grossly normal bilaterally, TM normal on the left, EAC's normal, mastoids normal, no periauricular adenopathy and TM abnormal (right side ) bulging, wth effusion and erythematous General nose exam: Normal external nose present Face and sinus: Yes normal facial exam Mouth: Normal oral and palatal mucosa present Throat: Yes posterior oropharynx normal, Yes tonsils normal and Yes uvula midline Eyes General: appearance normal, both eyes and all related structures Pupils: Equal, round and reactive pupils present Neck Neck: Yes normal visual inspection, Yes full ROM, Yes no lymphadenopathy and Yes no meningeal signs Chest Chest palpation & inspection: normal inspection of the chest Resp Effort & Inspection: normal respiratory effort Auscultation: clear to auscultation bilaterally Cardio Rate: regular rate Rhythm: regular rhythm Peripheral pulses: Peripheral pulses 2+ throughout GI Inspection: Yes normal to inspection Palpation (GI): Soft to palpation and nontender Auscultation: normal bowel sounds Back/Spine/Pelvis Thoracic/Lumbar Spine: thoracic and lumbar spine normal to inspection Skin General skin exam: no rashes or lesions noted Neuro General: patient oriented x3, no meningeal signs, no focal motor deficits and normal sensation to monofilament Cranial nerves: Yes Equal, round and reactive pupils present Cognition (Neuro): normal cognition Speech: No Abnormal speech present Gait exam (Neuro): Normal gait present Motor exam (neuro): 5/5 motor strength present throughout Extrem General: Yes normal to inspection, Yes no pedal edema and Yes no calf tenderness Course Course Course Narrative: This is an RME: Additional HPI, ROS, PE not included below will be deferred to primary provider. This is a [id number]-female, with no known medical problems, presenting to the ER with complaints of right ear pain, headache, dry cough, congestion, body aches x several days. Plan: Viral swabs. Medical Decision Making Medical Decision Making MDM Narrative: 33 yo female with history of anxiety, anemia, obesity here with complaints of right ear pain, body aches, headache, cough and congestion since last evening. Had URI last week which resolved. No chest pain, shortness of breath, skin rash, neck pain or neck stiffness, vomiting, diarrhea, abdominal pain. R AOM. Exam is benign otherwise. WIll send viral testing Differential Diagnosis Differential Diagnoses: The differential diagnosis associated with the presentation includes exam not c/w with strep pharyngitis, malignant otitis externa, mastoiditis AOM, otitis externa, influenza, viral syndrome Admission/Observation Consideration of admission/observation: Escalation of care including admission/observation considered viral syndrome with AOM with no hypoxia or tachypnea to suggest need for supplemental oxygen and or admission Lab Data MDM Lab Attestation statement: I reviewed the patient's lab results. Labs: Lab Results 09/17/23 Range/Units 17:19 COVID-19 (MARIANA) Negative (Negative) COVID-19 Clin Com See Note Influenza Type A (RIGOBERTO) Negative (Negative) Influenza Type B (RIGOBERTO) Negative (Negative) Influenza A & B Note See Note Independent Historian Clinical information obtained from an independent historian. History obtained from or confirmed by: Friend Tests considered The following testing was considered but not selected: no hypoxia or tachypnea to suggest need for cxr Prescription Management I considered prescription management with: Antibiotic Discharge Plan Discharge Clinical Impression: Otitis media Patient Disposition: Home, Self-Care Instructions: Ear Infection (ED) Additional Instructions: COVID and flu testing are negative Alternate motrin/tylenol for pain or fever Increase fluids, rest Las pruebas de COVID y gripe son negativas Motrin/tylenol alternativo para el dolor o la fiebre Aumentar l?quidos, descansar. Prescriptions: New amoxicillin 500 mg capsule 500 mg PO BID Qty: 20 0RF No Action ferrous sulfate 325 mg (65 mg iron) tablet 325 mg PO DAILY Qty: 90 0RF cholecalciferol (vitamin D3) 50 mcg (2,000 unit) capsule 50 mcg PO DAILY Qty: 30 5RF Referrals: Lani Kothari MD [Primary Care Provider] -
[2023-09-17 17:44] LABS: COVID-19 Test Negative (Negative); IDNOW Serial# 08D9AD1C; IDNOW Serial# 152EDE1D; Influenza A Negative (Negative); Influenza B2 Negative (Negative)
[2023-09-17 18:12] VITALS: BP 136/70; PULSE 112; RESP 18; TEMP 37.7; O2SAT 98
[2023-09-17] MEDS: Ibuprofen 600 MG TABLET PO (19:10)
== END 2023-09-17 19:12 | disposition home or self-care (01) ==
PROVIDERS: Physician Assistant Medical; Emergency Provider Internal Medicine; PCP Internal Medicine
DX: H66.91 Otitis media, unspecified, right ear (principal); R50.9 Fever, unspecified; Z11.52 Encounter for screening for COVID-19; F17.210 Nicotine dependence, cigarettes, uncomplicated
CPT/HCPCS: 87502; 87635; 99283

== ENCOUNTER 2023-09-20 11:13 | Outpatient (AMB) | payer OTHER, SELFPAY ==
--- NOTE | 2023-09-20 11:15 | MHC.PC.OV ---
Intake Visit Reasons: left ear infection Intake Note: Telehealth visit c/o left ear yellow discharge, bussing noise. 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 Allergies No Known Allergies Allergy (Verified 09/20/23 11:33) Medication List - Last Reconciled 09/20/23 by Lani Gilbert MD amoxicillin 500 mg PO BID Tobacco use date assessed: 09/20/23 Dental Screening Dental Screen Date: 09/20/23 Did you have a dental visit in the last 12 months?: Yes Did you have a dental problem in the last 6 months where you did not have access to dental care?: No Was dental information given to patient?: Patient has dentist HPI HPI Comments History of Present Illness Details This is a 33-year-old female that has tele health visit by video complaining of left ear purulent discharge that started yesterday. She said she went to urgent care 3 days ago and was discharged 09/17/2023 due to right otitis media with symptoms such as right ear pain that was bothering her. Started amoxicillin in 09/17/2023 and right ear pain resolved the next day. Then the left ear started draining and having tinnitus associated with dizziness. No fever. I will change the antibiotic to Augmentin. [facility] Medical History (Updated 09/20/23 @ 12:03 by Lani Gilbert MD) Sleep apnea Strep pharyngitis Surgical History History of tubal ligation History of cholecystectomy History of Family History Father Diabetes Hypertension Mother Hypertension Diabetes High cholesterol Heart problem Family/Other Mental health disorder Substance use disorder Maternal Aunt Breast cancer, Onset Age: 65 Maternal Uncle Prostate CA Sister Diabetes Brother Diabetes Brother No problems noted. Son No problems noted. Son ADHD Son ADHD Other Throat cancer Social History Housing: Apartment Alcohol intake: never Patient Tobacco Use Status: Current everyday Tobacco user Tobacco use type: Cigarette Cigarettes Per Day: 6 e-Cigarette/Vaping Use: Never Used Second Hand Smoke Exposure: No service: No Current occupational status: unemployed Cognitive needs: No Hearing needs: No Vision needs: No Female Reproductive History Menstrual Age of Menarche: 13 Questionnaire PHQ-9 Over the last 2 weeks, how often have you been bothered by any of the following problems? 1. Little interest or pleasure in doing things: not at all 2. Feeling down, depressed, or hopeless: not at all 3. Trouble falling or staying asleep, or sleeping too much: not at all 4. Feeling tired or having little energy: not at all 5. Poor appetite or overeating: not at all 6. Feeling bad about yourself - or that you are a failure or have let yourself or your family down: not at all 7. Trouble concentrating on things, such as reading the newspaper or watching television: not at all 8. Moving or speaking so slowly that other people could have noticed. Or the opposite - being so fidgety or restless that you have been moving around a lot more than usual: not at all 9. Thoughts that you would be better off or of hurting yourself in some way: not at all Total score: 0 Depression Screening Interpretation: Negative Depression Screening Done: Yes 56215 - PHQ-9 Billing: Yes Source: Developed by Drs. Gerson Palencia, Inés Horne, Bhavin Mueller and colleagues, with an educational za from [employer]. Thrive Questionnaire Date Thrive assessed: 09/20/23 I am a: Patient What is your living situation today?: I have a steady place to live Within the past 12 months, did the food you bought not last and you didn't have the money to get more?: Never true Within the past 12 months, did you worry whether your food would run out before you got money to buy more?: Never true Do you have trouble paying for medicines?: No Do you have trouble getting transportation to medical appointments?: No Do you have trouble paying your heating and electricity bill?: No Do you have trouble taking care of your child, family member or friend?: No Do you have trouble with day-to-day activities such as bathing, preparing meals, shopping, managing finances, etc.?: No Are you currently unemployed and looking for a job?: No Are you interested in more education?: No Please select the resources that you would like help with: None AUDIT C Alcohol Use Questionnaire (AUDIT-C) 1. How often do you have a drink containing alcohol?: Never Total Score: 0 TESS-7 AMB Questionnaire TESS-7 Date TESS - 7 assessed: 09/20/23 Feeling nervous, anxious, or on edge: 0 = Not at all Not being able to stop or control worryin = Not at all Worrying too much about different things: 0 = Not at all Trouble relaxin = Not at all Being so restless that it is hard to sit still: 0 = Not at all Becoming easily annoyed or irritable: 0 = Not at all Feeling afraid as if something awful might happen: 0 = Not at all Total TESS-7 score (0-4 normal; 5-9 mild; 10-14 moderate; 15-21 severe): 0 Source: Developed by Drs. Gerson Palencia, Inés Horne, Bhavin Mueller and colleagues, with an educational za from [employer]. TESS-7 Assessment Billing TESS-7 Assessment Tool: TESS-7 Assessment 18797 Review of Systems Const All systems reviewed & are unremarkable except as noted in HPI and below Eyes Reports no additional complaints, Denies change in vision and Denies other visual disturbances ENT Reports dizziness, Reports ear discharge and Reports tinnitus Card Denies chest pain at rest, Denies chest pain with activity, Denies edema, Denies irregular heart rhythm, Denies claudication, Denies dyspnea, Denies dyspnea on exertion, Denies orthopnea, Denies paroxysmal nocturnal dyspnea and Denies slow heart rate Resp Denies cough, Denies dyspnea and Denies dyspnea on exertion GI Denies abdominal pain, Denies change in bowel habits, Denies excessive flatus, Denies nausea and Denies vomiting Denies urinary incontinence, Denies urinary hesitancy and Denies urinary urgency Neuro Reports dizziness Physical exam (Primary Care) Tobacco/Smoking Status: Tobacco use Status Tobacco use date assessed 09/20/23 09/20/23 11:19 Patient Tobacco Use Status Current everyday Tobacco 09/20/23 11:19 Tobacco use type Cigarette 09/20/23 11:19 e-Cigarette/Vaping Use Never Used 09/20/23 11:19 PHQ-9: PHQ-9 Score PHQ-9: Total score 0 09/20/23 11:38 Depression Screening Interpretation: Negative Thrive Assessment: Date of Thrive Assessment Date Thrive assessed 09/20/23 09/20/23 11:19 HENMT Ears: external ears normal Telehealth Telehealth Location of provider rendering services: practice address Location of patient: address on file Patient Identification confirmed using: Name, : Yes Telehealth method: video Patient verbally consented to treatment: Yes Patient verbally consented to billing insurance company: Yes Patient informed of any privacy concerns related to visit: Yes Minutes spent on Phone/Video with Pt.: 15 Assessment and Plan Assessment & Plan (1) Hospital discharge follow-up: Code(s): Z09 - Encounter for follow-up examination after completed treatment for conditions other than malignant neoplasm Plan: Discharge date 09/17/2023 due to otitis media. Started amoxicillin and ear pain resolve but then the other ear started draining and hurting. (2) Otitis media: Code(s): H66.90 - Otitis media, unspecified, unspecified ear Plan: Change amoxicillin to Augmentin. Medications: New amoxicillin-pot clavulanate 875-125 mg 1 tab PO BID 7 days 14 tabs 0RF H66.90 - Otitis media, unspecified, unspecified ear Discontinued amoxicillin Discontinued Reason: Patient Completed Course 500 mg PO BID 20 caps 0RF Coding Level of Care Code TCM Mod MDM <= 7 Days Diagnoses Hospital discharge follow-up Z09 Otitis media H66.90 Additional Codes TESS-7 Assessment Billing - TESS-7 Assessment Tool: TESS-7 Assessment 54845 ([id number]) Time Spent (min) 15
== END 2023-09-20 12:07 | disposition home or self-care (01) ==
LOC: HO.HMGH 11:13
PROVIDERS: PCP Internal Medicine; Visit Provider Internal Medicine
DX: H66.92 Otitis media, unspecified, left ear (principal)
CPT/HCPCS: 99213

== ENCOUNTER 2024-04-03 13:50 | Outpatient (AMB) | payer OTHER, SELFPAY ==
--- NOTE | 2024-04-03 14:13 | A.OFFPC_ITS ---
Vital Signs 04/03/24 14:15 Height 5 ft 5 in Weight 315 lb BMI 52.4 BP 140/90 H Blood Pressure Location Lt radial Position Sitting Pulse 92 Pulse Source Pulse Oximeter Pulse Oximetry (%) 97 Oxygen Delivery Method Room Air Intake Visit Reasons: SwellingEyes Intake Note: patient c/o eye swelling, redness and itching x4days Allergies No Known Allergies Allergy (Verified 04/03/24 14:17) Tobacco use date assessed: 09/20/23 Dental Screening Dental Screen Date: 09/20/23 HPI SwellingEyes HPI Details 34-year-old female presents to the [facility] for a sick visit. Patient is reporting irritation in both eyes for the past 4 days. Symptoms of excessive tearing and mucoid discharge. Wakes up in the morning with her eyes stuck shut. No blurred vision. [facility] Medical History Sleep apnea Strep pharyngitis Surgical History History of tubal ligation History of cholecystectomy History of Family History Father Diabetes Hypertension Mother Hypertension Diabetes High cholesterol Heart problem Family/Other Mental health disorder Substance use disorder Maternal Aunt Breast cancer, Onset Age: 65 Maternal Uncle Prostate CA Sister Diabetes Brother Diabetes Brother No problems noted. Son No problems noted. Son ADHD Son ADHD Other Throat cancer Social History Housing: Apartment Alcohol intake: never Patient Tobacco Use Status: Current everyday Tobacco user Tobacco use type: Cigarette Cigarettes Per Day: 6 e-Cigarette/Vaping Use: Never Used Second Hand Smoke Exposure: No service: No Current occupational status: unemployed Cognitive needs: No Hearing needs: No Vision needs: No Female Reproductive History Menstrual Age of Menarche: 13 Questionnaire Thrive Questionnaire Date Thrive assessed: 09/20/23 AUDIT C Alcohol Use Questionnaire (AUDIT-C) 1. How often do you have a drink containing alcohol?: Never Total Score: 0 TESS-7 AMB Questionnaire TESS-7 Date TESS - 7 assessed: 09/20/23 Source: Developed by Drs. Gerson Palencia, Inés Bhavin Vergara and colleagues, with an educational za from [employer]. Physical exam (Primary Care) Vital Signs: Last Vital Signs Pulse 92 04/03/24 14:15 BP 140/90 H 04/03/24 14:15 Pulse Ox 97 04/03/24 14:15 Oxygen Delivery Method Room Air 04/03/24 14:15 BMI result Body Mass Index 52.4 Tobacco/Smoking Status: Tobacco use Status Tobacco use date assessed 09/20/23 04/03/24 14:16 Patient Tobacco Use Status Current everyday Tobacco 04/03/24 14:16 Tobacco use type Cigarette 04/03/24 14:16 e-Cigarette/Vaping Use Never Used 04/03/24 14:16 Thrive Assessment: Date of Thrive Assessment Date Thrive assessed 09/20/23 04/03/24 14:16 Const General: cooperative and healthy appearing Nutritional Appearance: well nourished Orientation/consciousness: patient oriented x3 Limitations: no limitations HENMT Head: Yes normal to inspection Eyes Other: Right and left eye: Bilateral conjunctival congestion. Corneas clear. Anterior chambers clear. No digital tenderness. Neck Neck: Yes normal visual inspection Chest Chest palpation & inspection: normal palpation of entire chest wall Resp Effort & Inspection: normal respiratory effort Neuro General: patient oriented x3 Assessment and Plan Assessment & Plan (1) Allergic conjunctivitis: Code(s): H10.10 - Acute atopic conjunctivitis, unspecified eye Plan: Erythromycin and all up-to-date called in. Patient was instructed on how to use the medications. If symptoms do not improve to follow-up here. Medications: New erythromycin 0.5 inches ophthalmic (eye) TID 1 g 0RF olopatadine 0.1% separate doses by at least 6-8 hours 1 drp ophthalmic (eye) BID 5 mL 0RF Coding Level of Care Code Est Pt Level 3 (00277) Complex EM visit Add On G2211 Diagnoses Allergic conjunctivitis H10.10
[2024-04-03 14:15] VITALS: BP 140/90; PULSE 92; O2SAT 97; BMI 52.4
== END 2024-04-03 15:41 | disposition home or self-care (01) ==
PROVIDERS: PCP Internal Medicine; Visit Provider Internal Medicine
DX: H10.13 Acute atopic conjunctivitis, bilateral (principal)
CPT/HCPCS: 99213; G2211

== ENCOUNTER 2024-04-04 22:14 | Emergency (ER) | payer OTHER, SELFPAY ==
[2024-04-04 22:29] VITALS: BP 144/81; PULSE 105; RESP 18; TEMP 36.3; O2SAT 95; BMI 52.4
--- NOTE | 2024-04-04 23:28 | PC.NURSE ---
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 pt reporting onset of eye redness, itching and irritation x5 days. pt reports being seen by PCP and being given ointment n which she started using yesterday without relief. pt denies any visual changes. denies n/v/d
--- NOTE | 2024-04-04 23:29 | ED.EYEPROB ---
HPI - Eye Problem General Chief complaint: Eye Problems Stated complaint: ?pink eye Time Seen by Provider: 04/04/24 23:21 Source: patient Mode of arrival: ambulatory Limitations: no limitations History of Present Illness ED Provider: Dr. Janessa Aguilar HPI Narrative: Patient comes to the emergency room complaining of pinkeye. Patient states that she was seen by her primary care physician couple of days ago, they gave her an antihistamine dropped medication and also erythromycin ointment. Patient states that her eyes are not getting any better. Patient denies fever chills, no vision changes. Related Data Previous Rx's ?Medication ?Instructions ?Recorded erythromycin 5 mg/gram (0.5 %) eye 0.5 inch ophthalmic (eye) TID #1 g 04/03/24 ointment olopatadine 0.1 % eye drops 1 drp ophthalmic (eye) BID #5 mL 04/03/24 Allergies Allergy/AdvReac Type Severity Reaction Status Date / Time No Known Allergies Allergy Verified 04/04/24 22:32 Review of Systems Review of Systems: Constitutional : No Weight loss, No Fever, No Chills, No Night Sweats, No Fatigue, No Malaise ENT/Mouth : No Hearing loss, No Ear Pain, No Nasal Congestion, No Sinus Pain, No Hoarseness, No sore throat, No Rhinorrhea, No Swallowing Difficulty Eyes: No Eye Pain, No Swelling, patient complaining of bilateral eye discomfort, erythema, gooey discharge especially in the mornings Cardiovascular : No Chest Pain, No SOB, No Dyspnea on Exertion, No Orthopnea, No Edema, No Palpitations Respiratory : No Cough, No Sputum, No Wheezing, No Smoke Exposure, No Dyspnea Gastrointestinal : No Nausea, No Vomiting, No Diarrhea, No Constipation, No abdominal Pain, No Hematochezia, No Melena Genitourinary : no irregular bleeding, No Dysuria, No Urinary Frequency, No Hematuria, No Urinary Incontinence, No Urgency, No Flank Pain, No Urinary Flow Changes, No Hesitancy Musculoskeletal : No joint pain, No Myalgias, No Joint Swelling Skin : No Skin Lesions, No rash Neuro : No Weakness, No Numbness, No Paresthesias, No Loss of Consciousness, No Dizziness, No Headache Psych : No Anxiety/Panic, No Depression, No SI/HI/AH/VH, No Social Issues, Heme/Lymph: No Bruising, No Bleeding,No Lymphadenopathy Endocrine : No Polyuria, No Polydipsia, No Temperature Intolerance [facility] Past Medical History Medical History Sleep apnea Strep pharyngitis Surgical History History of tubal ligation History of cholecystectomy History of Family History Family History Father Diabetes Hypertension Mother Hypertension Diabetes High cholesterol Heart problem Family/Other Mental health disorder Substance use disorder Maternal Aunt Breast cancer, Onset Age: 65 Maternal Uncle Prostate CA Sister Diabetes Brother Diabetes Brother No problems noted. Son No problems noted. Son ADHD Son ADHD Other Throat cancer Social History Social History Housing: Apartment Alcohol intake: never Patient Tobacco Use Status: Current everyday Tobacco user Tobacco use type: Cigarette Cigarettes Per Day: 6 Smoked in Last 30 Days: Yes e-Cigarette/Vaping Use: Never Used Second Hand Smoke Exposure: No Use of substances other than those prescribed or required for medical reasons: No Advance Directives: No Advance Directives Information Provided: No Patient : No service: No Current occupational status: unemployed Cognitive needs: No Hearing needs: No Vision needs: No Physical Exam Vital Signs: Vital Signs: Last Vital Signs Temp 97.3 F 04/04/24 22:29 Pulse 105 H 04/04/24 22:29 Resp 18 04/04/24 22:29 BP 144/81 H 04/04/24 22:29 Pulse Ox 95 04/04/24 22:29 O2 Del Method Room Air 04/04/24 22:29 BMI result Body Mass Index 52.4 Const: Other: Appearance: Alert. Oriented X3. No acute distress. Eyes: Pupils equal, round and reactive to light. Bilateral conjunctival injection, sticky discharge, normal eye movements ENT: Pharynx normal. Neck: Normal inspection. Neck supple. No lymph nodes noted. No crepitus CVS: Normal heart rate and rhythm. Pulses normal. Normal S1 and S2 Respiratory: No respiratory distress. Breath sounds normal. No Wheezing. No rales Abdomen: Soft and nontender. No rigidity. No distention. Skin: Skin warm and dry. Normal skin color. Normal skin turgor. Extremities: No lower extremity edema. No Lacerations. No Rash Neuro: Oriented X 3. No motor deficit. No sensory deficit. Moving all extremities. No slurred speech. CN 2 through 12 grossly intact Psych: calm, cooperative, normal affect Medical Decision Making Medical Decision Making MDM Narrative: -patient has been on erythromycin ointment without any significant relief. After discussing with the patient how she uses her ointment, patient states that she was a little bit of ointment in the bridge of the nose and in the lateral aspect of both eyes -I discussed with the patient that the appropriate way of administering the medication is to put the ointment in the eye. -also discussed with the patient to use warm compresses -patient states that she still has plenty of erythromycin ointment at home. Discharge Plan Discharge Clinical Impression: Conjunctivitis Patient Disposition: Home, Self-Care Instructions: Conjunctivitis (ED) Additional Instructions: Please follow-up with your primary care physician tomorrow. If you have any worsening or new symptoms, please return to the emergency room or call 911 Prescriptions: No Action erythromycin 5 mg/gram (0.5 %) ointment 0.5 inch ophthalmic (eye) TID Qty: 1 0RF olopatadine 0.1 % drops 1 drp ophthalmic (eye) BID Qty: 5 0RF Rx Instructions: separate doses by at least 6-8 hours Print Language: Kazakh
[2024-04-05] VITALS: BP 102/57; PULSE 101; RESP 18; TEMP 36.8; O2SAT 95
[2024-04-05 00:38] VITALS: BP 102/57; PULSE 101; RESP 18; TEMP 36.8; O2SAT 95
== END 2024-04-05 00:38 | disposition home or self-care (01) ==
PROVIDERS: Emergency Provider Emergency Medicine; PCP Internal Medicine
DX: H10.33 Unspecified acute conjunctivitis, bilateral (principal); F17.210 Nicotine dependence, cigarettes, uncomplicated
CPT/HCPCS: 99283; 99284

== ENCOUNTER 2024-07-14 22:35 | Emergency (ER) | payer OTHER, SELFPAY ==
[2024-07-14 22:37] VITALS: BP 148/70; PULSE 103; RESP 16; TEMP 37.1; O2SAT 97; BMI 53.1
[2024-07-14 23:04] LABS: Basophils Absolute Auto 0.1 X10*3/uL (0.0-0.2); Basophils Percent Auto 0.7 % (0-2); Eosinophils Absolute Auto 0.2 X10*3/uL (0.0-0.4); Eosinophils Percent Auto 2.2 % (0-4); Hematocrit 33.3 % (37.0-47.0); Hemoglobin 9.1 g/dl (12.0-16.0); Imm Gran Abs Auto 0.05 X10*3/uL (0.00-0.03); Imm Gran Pct Auto 0.5 % (0.0-0.4); Lymphocytes Absolute Auto 2.1 X10*3/uL (1.2-4.9); MANUAL DIFF FLAG SCAN; Mean Corpuscular HGB Conc 27.3 g/dl (31.0-35.0); Mean Corpuscular Hemoglobin 19.9 pg (27.0-33.0); Mean Corpuscular Volume 72.7 fL (80.0-98.0); Monocytes Absolute Auto 0.8 X10*3/uL (0.1-1.2); Monocytes Percent Auto 7.6 % (2-11); Neutrophils Absolute Auto 7.2 x10*3/uL (2.0-8.3); PLT ABN DIST 1; Platelet Count 295 X10*3/uL (160-400); Red Blood Count 4.58 X10*6/uL (4.20-5.50); Red Cell Distribution Width 18.1 % (11.0-16.0); SCAN SMEAR FLAG 1; White Blood Count 10.5 X10*3/uL (4.8-10.8)
[2024-07-14 23:12] LABS: Alanine Aminotransferase 56 U/L (0-31); Albumin Level 3.8 g/dL (3.5-5.0); Alkaline Phosphatase 131 U/L (39-117); Anion Gap 13 (12-20); Aspartate Amino Transferase 24 U/L (5-31); Bilirubin Total 0.4 mg/dL (0.0-1.0); Blood Urea Nitrogen 10 mg/dL (9-16); Calcium 8.7 mg/dL (8.4-10.2); Carbon Dioxide 21 mmol/L (22-29); Chloride 111 mmol/L (96-108); Creatinine Clr Calc Pharmacy 153.3; Estimated Glomerular Filt Rate > 60; Glucose Random 177 mg/dL (60-115); Potassium 3.6 mmol/L (3.3-5.1); Sodium 141 mmol/L (135-145)
[2024-07-14 23:17] LABS: SLIDE REVIEW VERIFIED
[2024-07-15 00:06] VITALS: BP 139/67; PULSE 98; RESP 16; TEMP 37; O2SAT 97
[2024-07-15] MEDS: Morphine Sulfate 2 MG/ML CARTRIDGE IM (02:34)
[2024-07-15 02:39] VITALS: BP 139/67; PULSE 98; RESP 16; TEMP 37; O2SAT 97
--- NOTE | 2024-07-16 19:54 | ED_ITS ---
HPI - General Adult General Chief complaint: General Medical Stated complaint: stitches removal Source: patient Mode of arrival: ambulatory Limitations: no limitations History of Present Illness ED Provider: Dr. Janessa Aguilar HPI narrative: This is a note for service of 07/15/2024 Patient comes to the emergency room complaining of an abscess on the chest, between both breasts, closer to the right side. Patient states it has been growing for several days. Patient denies fever chills. Patient states it is very painful to touch. Denies nausea vomiting diarrhea, no other complaints. Related Data Previous Rx's ?Medication ?Instructions ?Recorded erythromycin 5 mg/gram (0.5 %) eye 0.5 inch ophthalmic (eye) TID #1 g 04/03/24 ointment olopatadine 0.1 % eye drops 1 drp ophthalmic (eye) BID #5 mL 04/03/24 cephalexin 500 mg capsule 500 mg PO BID 10 days #20 caps 07/15/24 doxycycline hyclate 100 mg tablet 100 mg PO BID #20 tabs 07/15/24 ibuprofen 600 mg tablet 600 mg PO Q8H PRN fever or pain 07/15/24 #30 tabs oxycodone 5 mg capsule 5 mg PO BID PRN pain (scale score 07/15/24 7-10) #6 caps Allergies Allergy/AdvReac Type Severity Reaction Status Date / Time No Known Allergies Allergy Verified 07/16/24 19:47 Review of Systems Review of Systems: Constitutional : No Weight loss, No Fever, No Chills, No Night Sweats, No Fatigue, No Malaise ENT/Mouth : No Hearing loss, No Ear Pain, No Nasal Congestion, No Sinus Pain, No Hoarseness, No sore throat, No Rhinorrhea, No Swallowing Difficulty Eyes: No Eye Pain, No Swelling, No Redness, No Foreign Body, No Discharge, No Vision Changes Cardiovascular : No Chest Pain, No SOB, No Dyspnea on Exertion, No Orthopnea, No Edema, No Palpitations Respiratory : No Cough, No Sputum, No Wheezing, No Smoke Exposure, No Dyspnea Gastrointestinal : No Nausea, No Vomiting, No Diarrhea, No Constipation, No abdominal Pain, No Hematochezia, No Melena Genitourinary : no irregular bleeding, No Dysuria, No Urinary Frequency, No Hematuria, No Urinary Incontinence, No Urgency, No Flank Pain, No Urinary Flow Changes, No Hesitancy Musculoskeletal : No joint pain, No Myalgias, No Joint Swelling Skin : Complaining of skin redness and pain on the mid section of the chest, closer to the right breast. Neuro : No Weakness, No Numbness, No Paresthesias, No Loss of Consciousness, No Dizziness, No Headache Psych : No Anxiety/Panic, No Depression, No SI/HI/AH/VH, No Social Issues, Heme/Lymph: No Bruising, No Bleeding,No Lymphadenopathy Endocrine : No Polyuria, No Polydipsia, No Temperature Intolerance [facility] Past Medical History Medical History Sleep apnea Strep pharyngitis Surgical History History of tubal ligation History of cholecystectomy History of Family History Family History Father Diabetes Hypertension Mother Hypertension Diabetes High cholesterol Heart problem Family/Other Mental health disorder Substance use disorder Maternal Aunt Breast cancer, Onset Age: 65 Maternal Uncle Prostate CA Sister Diabetes Brother Diabetes Brother No problems noted. Son No problems noted. Son ADHD Son ADHD Other Throat cancer Social History Social History Housing: Apartment Alcohol intake: never Patient Tobacco Use Status: Current everyday Tobacco user Tobacco use type: Cigarette Cigarettes Per Day: 6 e-Cigarette/Vaping Use: Never Used Second Hand Smoke Exposure: No Do you have a plan to hurt others: No Plan service: No Current occupational status: unemployed Cognitive needs: No Hearing needs: No Vision needs: No Physical Exam ED Vital Signs: Vital Signs - 24 hr 07/16/24 19:45 Temperature 98.6 F Pulse Rate 107 H Respiratory Rate 18 Blood Pressure 146/87 H Pulse Oximetry 97 Oxygen Delivery Method Room Air BMI result Body Mass Index 52.6 Const Other: Appearance: Alert. Oriented X3. No acute distress. Eyes: Pupils equal, round and reactive to light. ENT: Pharynx normal. Neck: Normal inspection. Neck supple. No lymph nodes noted. No crepitus CVS: Normal heart rate and rhythm. Pulses normal. Normal S1 and S2 Respiratory: No respiratory distress. Breath sounds normal. No Wheezing. No rales Abdomen: Soft and nontender. No rigidity. No distention. Skin: There is a 3 cm x 3 cm induration over the right breast closer to the mid chest. Bedside ultrasound shows an abscess that is approximately 1 cm below the skin Extremities: No lower extremity edema. No Lacerations. No Rash Neuro: Oriented X 3. No motor deficit. No sensory deficit. Moving all extremities. No slurred speech. CN 2 through 12 grossly intact Psych: calm, cooperative, normal affect Procedures Abscess I/D Site: other Side (if applicable): right Local Anesthetic: lidocaine 1% Amount of anesthesia used (mL): 8 Technique: incised with blade and ultrasound guided Amount of fluid expressed (mL): 15 Sent for culture/gram staining?: No Irrigation: No Packing used?: iodoform Medical Decision Making Medical Decision Making [facility] Narrative: I discussed with the patient that she is developing an abscess, it is not only superficial cellulitis. -patient was injected with lidocaine, with an 11 blade a small incision was made, a large amount of pus was drained, packing was applied. -patient was given IM medication and cephalexin and doxycycline Discharge Plan Discharge Clinical Impression: Abscess Patient Disposition: Home, Self-Care Instructions: Abscess (ED) Additional Instructions: A prescription for cephalexin and doxycycline was sent to the patient's pharmacy. Patient instructed to return to the emergency room for wound check and packing removal if appropriate within 24-48 hours Prescriptions: No Action ibuprofen 600 mg tablet 600 mg PO Q8H PRN (Reason: fever or pain) Qty: 30 0RF cephalexin 500 mg capsule 500 mg PO BID 10 Days Qty: 20 0RF doxycycline hyclate 100 mg tablet 100 mg PO BID Qty: 20 0RF oxycodone 5 mg capsule 5 mg PO BID PRN (Reason: pain (scale score 7-10)) Qty: 6 0RF Rx Instructions: Partial Fill upon patient request. erythromycin 5 mg/gram (0.5 %) ointment 0.5 inch ophthalmic (eye) TID Qty: 1 0RF olopatadine 0.1 % drops 1 drp ophthalmic (eye) BID Qty: 5 0RF Rx Instructions: separate doses by at least 6-8 hours Print Language: Kinyarwanda
== END 2024-07-15 02:46 | disposition home or self-care (01) ==
PROVIDERS: Emergency Provider Emergency Medicine; PCP Internal Medicine
DX: N61.1 Abscess of the breast and nipple (principal); N64.4 Mastodynia; F17.210 Nicotine dependence, cigarettes, uncomplicated; Z79.899 Other long term (current) drug therapy
CPT/HCPCS: 10060; 36415; 80053; 85025; 96372; 99284; J2270

== ENCOUNTER 2024-07-16 19:32 | Emergency (ER) | payer OTHER, SELFPAY ==
--- NOTE | 2024-07-16 19:42 | ED.GENADULT ---
HPI - General Adult General Chief complaint: General Medical Stated complaint: stitches removal Time Seen by Provider: 07/16/24 23:50 Source: patient Mode of arrival: ambulatory Limitations: no limitations History of Present Illness ED Provider: Dalila Johnson PA-C HPI narrative: Patient is a 34 year old assigned female at with a history of hidradenitis suppurative, anxiety, hirsutism, and recent breast abscess incision and drainage presenting to the emergency department today for packing removal. Patient states that she was seen on 07/15/2024 for a breast abscess that was incised and drained. Patient states that she was told to come back today to have packing removal. Patient denies any dizziness, lightheadedness, abdominal pain, nausea, vomiting, fever, chills, blurry vision, double vision, loss of vision, chest pain, difficulty breathing, shortness of breath, back pain, night sweats, pain with urination, increased urinary frequency, increased urinary urgency, blood in her urine or stool, syncope or a near syncopal episode, bowel incontinence, bladder incontinence, or any other complaints at this time. Relieving factors: none Exacerbating factors: none Associated symptoms: denies other symptoms Treatments prior to arrival: none Related Data Previous Rx's ?Medication ?Instructions ?Recorded erythromycin 5 mg/gram (0.5 %) eye 0.5 inch ophthalmic (eye) TID #1 g 04/03/24 ointment olopatadine 0.1 % eye drops 1 drp ophthalmic (eye) BID #5 mL 04/03/24 cephalexin 500 mg capsule 500 mg PO BID 10 days #20 caps 07/15/24 doxycycline hyclate 100 mg tablet 100 mg PO BID #20 tabs 07/15/24 ibuprofen 600 mg tablet 600 mg PO Q8H PRN fever or pain 07/15/24 #30 tabs oxycodone 5 mg capsule 5 mg PO BID PRN pain (scale score 07/15/24 7-10) #6 caps Allergies Allergy/AdvReac Type Severity Reaction Status Date / Time No Known Allergies Allergy Verified 07/17/24 09:06 Review of Systems Constitutional: Constitutional: Reports no additional constitutional complaints, Denies chills, Denies fever(s) and Denies night sweats Eyes: Eyes: Reports no additional eye complaints, Denies blurry vision, Denies change in vision, Denies diplopia, Denies eye discharge, Denies loss of vision and Denies eye pain ENT: Denies dizziness Cardiovascular: Cardiovascular: Reports no additional cardiovascular complaints, Denies chest pain, Denies lightheadedness, Denies Loss of Consciousness and Denies dyspnea Respiratory: Respiratory: Reports no additional respiratory complaints and Denies dyspnea Gastrointestinal: Gastrointestinal: Reports no additional gastrointestinal complaints, Denies abdominal pain, Denies melena, Denies hematochezia, Denies change in bowel habits and Denies change in stool character Genitourinary: Genitourinary: Denies hematuria, Denies urinary frequency, Denies dysuria, Denies urinary incontinence, Denies urinary hesitancy and Denies urinary urgency Musculoskeletal: Musculoskeletal: Reports no additional musculoskeletal complaints, Denies numbness and Denies tingling Integumentary/Breasts: Comments: packing present in the right breast Neurologic: Denies dizziness, Denies loss of vision, Denies numbness and Denies tingling Psychiatric: Psychiatric: Reports no additional psychiatric complaints Endocrine: Endocrine: Reports no additional endocrine complaints Hematologic/Lymphatic: Hematologic/Lymphatic: Reports no additional hematologic/lymphatic complaints Allergic/Immunologic: Allergic/Immunologic: Reports no additional allergic/immunologic complaints PMFSH Past Medical History Attestation statement: The following information was validated with the patient. Source: old records reviewed and nursing notes reviewed Medical History Sleep apnea Strep pharyngitis Surgical History History of tubal ligation History of cholecystectomy History of Family History Family History Father Diabetes Hypertension Mother Hypertension Diabetes High cholesterol Heart problem Family/Other Mental health disorder Substance use disorder Maternal Aunt Breast cancer, Onset Age: 65 Maternal Uncle Prostate CA Sister Diabetes Brother Diabetes Brother No problems noted. Son No problems noted. Son ADHD Son ADHD Other Throat cancer Social History Social History Housing: Apartment Alcohol intake: never Patient Tobacco Use Status: Current everyday Tobacco user Tobacco use type: Cigarette Cigarettes Per Day: 6 e-Cigarette/Vaping Use: Never Used Second Hand Smoke Exposure: No Advance Directives: No Advance Directives Information Provided: Yes Do you have a plan to hurt others: No Plan service: No Current occupational status: unemployed Cognitive needs: No Hearing needs: No Vision needs: No Physical Exam ED Vital Signs: BMI result Body Mass Index 52.6 Const General: cooperative, no acute distress, alert and awake Nutritional Appearance: well nourished Orientation/consciousness: patient oriented x3 Limitations: no limitations HENMT Head: Yes normal to inspection and Yes atraumatic Ears: hearing grossly normal bilaterally and external ears normal General nose exam: Normal external nose present, no nasal discharge noted and no epistaxis Face and sinus: Yes normal facial exam, No abrasion and No laceration Mouth: Normal oral and palatal mucosa present, no drooling and no muffled voice Eyes General: appearance normal, both eyes and all related structures Periorbital: periorbital findings normal Eyelids: Yes eyelids normal Conjunctivae: conjunctivae normal Pupils: Equal, round and reactive pupils present EOM: EOMs intact bilaterally Neck Neck: Yes normal visual inspection, Yes full ROM and Yes no lymphadenopathy Chest Other: packing present to the medial right breast Resp Effort & Inspection: normal respiratory effort and able to speak in complete sentences GI Inspection: Yes normal to inspection Neuro General: patient oriented x3 and moves all extremities Cranial nerves: Yes Equal, round and reactive pupils present Cognition (Neuro): normal cognition Extrem General: Yes normal to inspection, Yes full ROM and Yes capillary refill normal Psych Appearance: grossly normal Mental Status: mental status grossly normal Affect: normal affect Attitude: cooperative Thought process: Normal thought process present Thought content: Normal thought content present Insight: Good insight present (Psych) Course Course Course Narrative: RME performed by Dalila Johnson PA-C. Patient is a 34 year old assigned female at presenting to the emergency department for packing removal of the right breast. Patient states that 2 days ago she had an abscess incised and drained with packing placed and is here to have it removed. Detailed physical exam and review of systems are deferred to the inspector and tester. Patient placed back in the waiting room pending room availability. Medical Decision Making Medical Decision Making MDM Narrative: Patient is a 34 year old assigned female at with a history of hidradenitis suppurative, anxiety, hirsutism, and recent breast abscess incision and drainage presenting to the emergency department today for packing removal. Patient's limited physical exam performed in triage was as noted in the physical exam portion of this note. Patient left the department without completing treatment. Patient left the department before myself or any of the other emergency department clinicians could explain to or review with the patient; physical exam findings, test results, need or lack there of for additional testing, need or lack there of for a procedure to be performed, need or lack there of for hospital admission / transfer, need or lack there of for prescription medication, treatment options, or a treatment plan. Differential Diagnosis Differential Diagnoses: The differential diagnosis associated with the presentation includes Packing removal Admission/Observation Consideration of admission/observation: Escalation of care including admission/observation considered Patient would have been admitted to the hospital had she completed her work up and it had any findings where hospital admission was appropriate, her clinical presentation warranted hospital admission, had myself or any other emergency emergency department aide had the ability to discuss need or lack there of for hospital admission, and the patient hadn't left the department without completing treatment. Discharge Plan Discharge Clinical Impression: Abscess Patient Disposition: Left W/O Completing Treatment Prescriptions: No Action ibuprofen 600 mg tablet 600 mg PO Q8H PRN (Reason: fever or pain) Qty: 30 0RF cephalexin 500 mg capsule 500 mg PO BID 10 Days Qty: 20 0RF doxycycline hyclate 100 mg tablet 100 mg PO BID Qty: 20 0RF oxycodone 5 mg capsule 5 mg PO BID PRN (Reason: pain (scale score 7-10)) Qty: 6 0RF Rx Instructions: Partial Fill upon patient request. erythromycin 5 mg/gram (0.5 %) ointment 0.5 inch ophthalmic (eye) TID Qty: 1 0RF olopatadine 0.1 % drops 1 drp ophthalmic (eye) BID Qty: 5 0RF Rx Instructions: separate doses by at least 6-8 hours Discharge Date/Time: 07/17/24 00:24
[2024-07-16 19:45] VITALS: BP 146/87; PULSE 107; RESP 18; TEMP 37; O2SAT 97; BMI 52.6
--- NOTE | 2024-07-16 19:54 | ED_ITS ---
HPI - General Adult General Chief complaint: General Medical Stated complaint: stitches removal Source: patient Mode of arrival: ambulatory Limitations: no limitations History of Present Illness ED Provider: Dr. Janessa Aguilar HPI narrative: This is a note for service of 07/15/2024 Patient comes to the emergency room complaining of an abscess on the chest, between both breasts, closer to the right side. Patient states it has been growing for several days. Patient denies fever chills. Patient states it is very painful to touch. Denies nausea vomiting diarrhea, no other complaints. Related Data Previous Rx's ?Medication ?Instructions ?Recorded erythromycin 5 mg/gram (0.5 %) eye 0.5 inch ophthalmic (eye) TID #1 g 04/03/24 ointment olopatadine 0.1 % eye drops 1 drp ophthalmic (eye) BID #5 mL 04/03/24 cephalexin 500 mg capsule 500 mg PO BID 10 days #20 caps 07/15/24 doxycycline hyclate 100 mg tablet 100 mg PO BID #20 tabs 07/15/24 ibuprofen 600 mg tablet 600 mg PO Q8H PRN fever or pain 07/15/24 #30 tabs oxycodone 5 mg capsule 5 mg PO BID PRN pain (scale score 07/15/24 7-10) #6 caps Allergies Allergy/AdvReac Type Severity Reaction Status Date / Time No Known Allergies Allergy Verified 07/16/24 19:47 Review of Systems Review of Systems: Constitutional : No Weight loss, No Fever, No Chills, No Night Sweats, No Fatigue, No Malaise ENT/Mouth : No Hearing loss, No Ear Pain, No Nasal Congestion, No Sinus Pain, No Hoarseness, No sore throat, No Rhinorrhea, No Swallowing Difficulty Eyes: No Eye Pain, No Swelling, No Redness, No Foreign Body, No Discharge, No Vision Changes Cardiovascular : No Chest Pain, No SOB, No Dyspnea on Exertion, No Orthopnea, No Edema, No Palpitations Respiratory : No Cough, No Sputum, No Wheezing, No Smoke Exposure, No Dyspnea Gastrointestinal : No Nausea, No Vomiting, No Diarrhea, No Constipation, No abdominal Pain, No Hematochezia, No Melena Genitourinary : no irregular bleeding, No Dysuria, No Urinary Frequency, No Hematuria, No Urinary Incontinence, No Urgency, No Flank Pain, No Urinary Flow Changes, No Hesitancy Musculoskeletal : No joint pain, No Myalgias, No Joint Swelling Skin : Complaining of skin redness and pain on the mid section of the chest, closer to the right breast. Neuro : No Weakness, No Numbness, No Paresthesias, No Loss of Consciousness, No Dizziness, No Headache Psych : No Anxiety/Panic, No Depression, No SI/HI/AH/VH, No Social Issues, Heme/Lymph: No Bruising, No Bleeding,No Lymphadenopathy Endocrine : No Polyuria, No Polydipsia, No Temperature Intolerance [facility] Past Medical History Medical History Sleep apnea Strep pharyngitis Surgical History History of tubal ligation History of cholecystectomy History of Family History Family History Father Diabetes Hypertension Mother Hypertension Diabetes High cholesterol Heart problem Family/Other Mental health disorder Substance use disorder Maternal Aunt Breast cancer, Onset Age: 65 Maternal Uncle Prostate CA Sister Diabetes Brother Diabetes Brother No problems noted. Son No problems noted. Son ADHD Son ADHD Other Throat cancer Social History Social History Housing: Apartment Alcohol intake: never Patient Tobacco Use Status: Current everyday Tobacco user Tobacco use type: Cigarette Cigarettes Per Day: 6 e-Cigarette/Vaping Use: Never Used Second Hand Smoke Exposure: No Do you have a plan to hurt others: No Plan service: No Current occupational status: unemployed Cognitive needs: No Hearing needs: No Vision needs: No Physical Exam ED Vital Signs: Vital Signs - 24 hr 07/16/24 19:45 Temperature 98.6 F Pulse Rate 107 H Respiratory Rate 18 Blood Pressure 146/87 H Pulse Oximetry 97 Oxygen Delivery Method Room Air BMI result Body Mass Index 52.6 Const Other: Appearance: Alert. Oriented X3. No acute distress. Eyes: Pupils equal, round and reactive to light. ENT: Pharynx normal. Neck: Normal inspection. Neck supple. No lymph nodes noted. No crepitus CVS: Normal heart rate and rhythm. Pulses normal. Normal S1 and S2 Respiratory: No respiratory distress. Breath sounds normal. No Wheezing. No rales Abdomen: Soft and nontender. No rigidity. No distention. Skin: There is a 3 cm x 3 cm induration over the right breast closer to the mid chest. Bedside ultrasound shows an abscess that is approximately 1 cm below the skin Extremities: No lower extremity edema. No Lacerations. No Rash Neuro: Oriented X 3. No motor deficit. No sensory deficit. Moving all extremities. No slurred speech. CN 2 through 12 grossly intact Psych: calm, cooperative, normal affect Procedures Abscess I/D Site: other Side (if applicable): right Local Anesthetic: lidocaine 1% Amount of anesthesia used (mL): 8 Technique: incised with blade and ultrasound guided Amount of fluid expressed (mL): 15 Sent for culture/gram staining?: No Irrigation: No Packing used?: iodoform Medical Decision Making Medical Decision Making [facility] Narrative: I discussed with the patient that she is developing an abscess, it is not only superficial cellulitis. -patient was injected with lidocaine, with an 11 blade a small incision was made, a large amount of pus was drained, packing was applied. -patient was given IM medication and cephalexin and doxycycline Discharge Plan Discharge Clinical Impression: Abscess Patient Disposition: Home, Self-Care Instructions: Abscess (ED) Additional Instructions: A prescription for cephalexin and doxycycline was sent to the patient's pharmacy. Patient instructed to return to the emergency room for wound check and packing removal if appropriate within 24-48 hours Prescriptions: No Action ibuprofen 600 mg tablet 600 mg PO Q8H PRN (Reason: fever or pain) Qty: 30 0RF cephalexin 500 mg capsule 500 mg PO BID 10 Days Qty: 20 0RF doxycycline hyclate 100 mg tablet 100 mg PO BID Qty: 20 0RF oxycodone 5 mg capsule 5 mg PO BID PRN (Reason: pain (scale score 7-10)) Qty: 6 0RF Rx Instructions: Partial Fill upon patient request. erythromycin 5 mg/gram (0.5 %) ointment 0.5 inch ophthalmic (eye) TID Qty: 1 0RF olopatadine 0.1 % drops 1 drp ophthalmic (eye) BID Qty: 5 0RF Rx Instructions: separate doses by at least 6-8 hours Print Language: Vietnamese
--- NOTE | 2024-07-17 00:17 | PC.NURSE ---
Pt no answer when called for reassessment.
== END 2024-07-17 00:24 | disposition left against medical advice (07) ==
LOC: HO.ED 07-17 00:20
PROVIDERS: Emergency Provider Emergency Medicine
DX: Z48.01 Encounter for change or removal of surgical wound dressing (principal); N61.1 Abscess of the breast and nipple
CPT/HCPCS: 99281; 99282

== ENCOUNTER 2024-07-17 08:55 | Emergency (ER) | payer OTHER, SELFPAY ==
[2024-07-17 09:02] VITALS: BP 150/37; PULSE 93; RESP 18; TEMP 36.4; O2SAT 100; BMI 53.4
[2024-07-17 16:40] VITALS: BP 140/77; PULSE 96; RESP 16; TEMP 36.7; O2SAT 98
--- NOTE | 2024-07-17 17:18 | ED_ITS ---
HPI - General Adult General Chief complaint: General Medical Stated complaint: wants to remove a tube Time Seen by Provider: 07/17/24 17:21 Source: patient and RN notes reviewed Mode of arrival: ambulatory Limitations: no limitations History of Present Illness ED Provider: Pamela Key PA-C HPI narrative: This is a 34-year-old female who presents emergency department for wound check. Patient was seen on 07/15 for a breast abscess, which was excised and drained. Patient was discharged on doxycycline and Keflex in a wick was placed at that time. She states that the area has improved, reports less redness, and pain. She is here to have the wick removed. She has been taking the antibiotic as prescribed. Denies any fevers, chills. No other complaints or concerns at this time. MD complaint: Wound check Onset (ago): day(s) Relieving factors: none Exacerbating factors: none Associated symptoms: denies other symptoms Treatments prior to arrival: none Related Data Previous Rx's ?Medication ?Instructions ?Recorded erythromycin 5 mg/gram (0.5 %) eye 0.5 inch ophthalmic (eye) TID #1 g 04/03/24 ointment olopatadine 0.1 % eye drops 1 drp ophthalmic (eye) BID #5 mL 04/03/24 cephalexin 500 mg capsule 500 mg PO BID 10 days #20 caps 07/15/24 doxycycline hyclate 100 mg tablet 100 mg PO BID #20 tabs 07/15/24 ibuprofen 600 mg tablet 600 mg PO Q8H PRN fever or pain 07/15/24 #30 tabs oxycodone 5 mg capsule 5 mg PO BID PRN pain (scale score 07/15/24 7-10) #6 caps Allergies Allergy/AdvReac Type Severity Reaction Status Date / Time No Known Allergies Allergy Verified 07/17/24 09:06 Review of Systems Review of Systems: Yes all other systems are reviewed and are negative PMFSH Past Medical History Medical History Sleep apnea Strep pharyngitis Surgical History History of tubal ligation History of cholecystectomy History of Family History Family History Father Diabetes Hypertension Mother Hypertension Diabetes High cholesterol Heart problem Family/Other Mental health disorder Substance use disorder Maternal Aunt Breast cancer, Onset Age: 65 Maternal Uncle Prostate CA Sister Diabetes Brother Diabetes Brother No problems noted. Son No problems noted. Son ADHD Son ADHD Other Throat cancer Social History Social History Housing: Apartment Alcohol intake: never Patient Tobacco Use Status: Current everyday Tobacco user Tobacco use type: Cigarette Cigarettes Per Day: 6 e-Cigarette/Vaping Use: Never Used Second Hand Smoke Exposure: No Advance Directives: No Advance Directives Information Provided: Yes Do you have a plan to hurt others: No Plan service: No Current occupational status: unemployed Cognitive needs: No Hearing needs: No Vision needs: No Physical Exam ED Vital Signs: Vital Signs - 24 hr 07/17/24 09:02 07/17/24 16:40 07/17/24 17:46 Temperature 97.5 F 98.1 F 98.2 F Pulse Rate 93 96 87 Respiratory Rate 18 16 16 Blood Pressure 150/37 H 140/77 H 137/72 Pulse Oximetry 100 98 99 Oxygen Delivery Method Room Air Room Air Room Air 07/17/24 18:39 Temperature 98.2 F Pulse Rate 87 Respiratory Rate 16 Blood Pressure 137/72 Pulse Oximetry 99 Oxygen Delivery Method Room Air BMI result Body Mass Index 53.4 Const Other: General: Awake, alert, and oriented X3. No acute distress. HEENT: Normal inspection CVS: Normal heart rate and rhythm. Pulses normal. Respiratory: No respiratory distress Skin: Warm, dry, no rashes noted to exposed skin. Normal skin color. Normal skin turgor. Extremities: Right breast, midsternal, there is a 2 mm open wound with wick place, no surrounding erythema, warmth, or induration. No fluctuance. No drainage. Neuro: Oriented X 3. No motor deficit. No sensory deficit. Medical Decision Making Medical Decision Making MDM Narrative: This is a 34-year-old female who presents emergency department for wound check. Patient was seen on 07/15 and had an incision and drainage of a developing right-sided breast abscess. Wick was placed at that time. She has been taking antibiotics as prescribed. Reports that symptoms have improved. Wick was removed. Patient tolerated procedure well. Given strict return precautions and wound care instructions. Patient understands and agrees with plan. Patient stable for discharge Differential Diagnosis Differential Diagnoses: The differential diagnosis associated with the presentation includes Cellulitis, abscess, cyst, wound check Discharge Plan Discharge Clinical Impression: Wound check, abscess Patient Disposition: Home, Self-Care Instructions: Abscess Follow-up (ED) Additional Instructions: You were seen in the emergency department for a wound check. We removed the wick that was in your abscess. This area is healing well. Please continue taking all at-home antibiotics as prescribed. Keep wound clean and dry. Watch for any signs of increased infection including but not limited to increased redness, swelling, fevers, chills. If any of these occur, please return for re-evaluation. Prescriptions: No Action ibuprofen 600 mg tablet 600 mg PO Q8H PRN (Reason: fever or pain) Qty: 30 0RF cephalexin 500 mg capsule 500 mg PO BID 10 Days Qty: 20 0RF doxycycline hyclate 100 mg tablet 100 mg PO BID Qty: 20 0RF oxycodone 5 mg capsule 5 mg PO BID PRN (Reason: pain (scale score 7-10)) Qty: 6 0RF Rx Instructions: Partial Fill upon patient request. erythromycin 5 mg/gram (0.5 %) ointment 0.5 inch ophthalmic (eye) TID Qty: 1 0RF olopatadine 0.1 % drops 1 drp ophthalmic (eye) BID Qty: 5 0RF Rx Instructions: separate doses by at least 6-8 hours Stand Alone Forms: Work/School Release Interventions: ED Discharge Assessment Last Done: 07/17/24 18:39 Discharge Date/Time: 07/17/24 18:56 Print Language: Kazakh
[2024-07-17 17:46] VITALS: BP 137/72; PULSE 87; RESP 16; TEMP 36.8; O2SAT 99
[2024-07-17 18:39] VITALS: BP 137/72; PULSE 87; RESP 16; TEMP 36.8; O2SAT 99
== END 2024-07-17 18:56 | disposition home or self-care (01) ==
PROVIDERS: Emergency Provider Emergency Medicine; PCP Internal Medicine
DX: N61.1 Abscess of the breast and nipple (principal); Z48.00 Encounter for change or removal of nonsurgical wound dressing
CPT/HCPCS: 99282; 99283

== ENCOUNTER 2024-08-18 13:18 | Emergency (ER) | payer OTHER, SELFPAY ==
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
[2024-08-18 14:54] VITALS: BP 157/103; PULSE 110; RESP 18; TEMP 37; O2SAT 100; BMI 52.8
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
[2024-08-18 16:53] VITALS: BP 147/85; PULSE 99; RESP 17; TEMP 36.3; O2SAT 98
[2024-08-18 19:04] VITALS: BP 147/85; PULSE 99; RESP 17; TEMP 36.3; O2SAT 98
== END 2024-08-18 19:06 | disposition home or self-care (01) ==
PROVIDERS: Emergency Provider Emergency Medicine; PCP Internal Medicine
DX: M62.830 Muscle spasm of back (principal); N61.0 Mastitis without abscess; Z04.1 Encounter for examination and observation following transport accident; F17.210 Nicotine dependence, cigarettes, uncomplicated
CPT/HCPCS: 72100; 72220; 99283

== ENCOUNTER 2024-09-07 16:24 | Outpatient (AMB) | payer OTHER, SELFPAY ==
[2024-09-07 16:28] VITALS: BP 144/78; PULSE 77; O2SAT 94; BMI 52.8
--- NOTE | 2024-09-07 16:28 | MHC.PC.OV ---
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 Accompanied by: Self / Same As Patient Allergies No Known Allergies Allergy (Verified 09/07/24 16:40) Medication List - Last Reconciled 09/07/24 by Lani Gilbert MD acetaminophen (Tylenol Extra Strength) 1,000 mg (2 x 500 mg) PO Q8H PRN cyclobenzaprine 10 mg PO TID PRN ibuprofen 600 mg PO Q6H PRN lidocaine 4% (AsperFlex (lidocaine)) 1 patch topical DAILY PRN oxycodone 5 mg PO BID PRN Tobacco use date assessed: 09/07/24 Dental Screening Dental Screen Date: 09/07/24 Did you have a dental visit in the last 12 months?: Yes Did you have a dental problem in the last 6 months where you did not have access to dental care?: No Was dental information given to patient?: Patient has dentist HPI HPI Comments History of Present Illness Details The patient is a 34-year-old female presenting with hidradenitis suppurativa. She has a history of episodes on both sides of her body, including under the breast. 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 She was prescribed topical treatments, including creams and a body wash, which have been partially effective. Regarding blood pressure, the patient mentions consistently high readings during emergency visits. This aligns with today's finding of elevated blood pressure. She reports no significant adverse reactions to prescribed medications and is currently taking Tylenol, Flexeril as needed for back pain, and Ibuprofen. The patient also reports elevated blood glucose levels. Random glucose tests have shown slight elevations, prompting the plan for fasting lab work. She is morbidly obese with a BMI of 52.8 and I will prescribe weight loss medication. [facility] Medical History Sleep apnea Strep pharyngitis Surgical History History of tubal ligation History of cholecystectomy History of Family History Father Diabetes Hypertension Mother Hypertension Diabetes High cholesterol Heart problem Family/Other Mental health disorder Substance use disorder Maternal Aunt Breast cancer, Onset Age: 65 Maternal Uncle Prostate CA Sister Diabetes Brother Diabetes Brother No problems noted. Son No problems noted. Son ADHD Son ADHD Other Throat cancer Social History Housing: Apartment Alcohol intake: never Patient Tobacco Use Status: Current everyday Tobacco user Tobacco use type: Cigarette Cigarettes Per Day: 6 e-Cigarette/Vaping Use: Never Used Second Hand Smoke Exposure: No service: No Current occupational status: unemployed Cognitive needs: No Hearing needs: No Vision needs: No Female Reproductive History Menstrual Age of Menarche: 13 Questionnaire PHQ-9 Over the last 2 weeks, how often have you been bothered by any of the following problems? 1. Little interest or pleasure in doing things: not at all 2. Feeling down, depressed, or hopeless: not at all 3. Trouble falling or staying asleep, or sleeping too much: not at all 4. Feeling tired or having little energy: not at all 5. Poor appetite or overeating: not at all 6. Feeling bad about yourself - or that you are a failure or have let yourself or your family down: not at all 7. Trouble concentrating on things, such as reading the newspaper or watching television: not at all 8. Moving or speaking so slowly that other people could have noticed. Or the opposite - being so fidgety or restless that you have been moving around a lot more than usual: not at all 9. Thoughts that you would be better off or of hurting yourself in some way: not at all Total score: 0 Depression Screening Interpretation: Negative Depression Screening Done: Yes 92321 - PHQ-9 Billing: Yes Source: Developed by Drs. Gerson Palencia, Inés Horne, Bhavin Mueller and colleagues, with an educational za from [employer]. Thrive Questionnaire Date Thrive assessed: 09/07/24 I am a: Patient What is your living situation today?: I have a steady place to live Within the past 12 months, did the food you bought not last and you didn't have the money to get more?: Never true Within the past 12 months, did you worry whether your food would run out before you got money to buy more?: Never true Do you have trouble paying for medicines?: No Do you have trouble getting transportation to medical appointments?: No Do you have trouble paying your heating and electricity bill?: No Do you have trouble taking care of your child, family member or friend?: No Do you have trouble with day-to-day activities such as bathing, preparing meals, shopping, managing finances, etc.?: No Are you currently unemployed and looking for a job?: No Are you interested in more education?: No Please select the resources that you would like help with: None Currently or been in a relationship where the following occur: No concerns reported THRIVE Score: 0 AUDIT C Alcohol Use Questionnaire (AUDIT-C) 1. How often do you have a drink containing alcohol?: Never 3. How often do you have six or more drinks on one occasion?: Never Total Score: 0 TESS-7 AMB Questionnaire TESS-7 Date TESS - 7 assessed: 09/07/24 Feeling nervous, anxious, or on edge: 0 = Not at all Not being able to stop or control worryin = Not at all Worrying too much about different things: 0 = Not at all Trouble relaxin = Not at all Being so restless that it is hard to sit still: 0 = Not at all Becoming easily annoyed or irritable: 0 = Not at all Feeling afraid as if something awful might happen: 0 = Not at all Total TESS-7 score (0-4 normal; 5-9 mild; 10-14 moderate; 15-21 severe): 0 Source: Developed by Drs. Gerson Palencia, Inés Horne, Bhavin Mueller and colleagues, with an educational za from [employer]. TESS-7 Assessment Billing TESS-7 Assessment Tool: TESS-7 Assessment 68051 Review of Systems Const Details: - General: Reports occasional headaches. - Genitourinary: Reports increased urination, particularly at night. - Endocrine: Reports increased thirst. Physical exam (Primary Care) Vital Signs: Last Vital Signs Pulse 77 09/07/24 16:28 BP 144/78 H 09/07/24 16:28 Pulse Ox 94 09/07/24 16:28 Oxygen Delivery Method Room Air 09/07/24 16:28 BMI result Body Mass Index 52.8 BMI Assessment/Plan discussion: High BMI High, discussed plan: lifestyle, weight reduction, dietary and physical activity Tobacco/Smoking Status: Tobacco use Status Tobacco use date assessed 09/07/24 09/07/24 16:37 Patient Tobacco Use Status Current everyday Tobacco 09/07/24 16:31 Tobacco use type Cigarette 09/07/24 16:31 e-Cigarette/Vaping Use Never Used 09/07/24 16:31 PHQ-9: PHQ-9 Score PHQ-9: Total score 0 09/07/24 17:01 Depression Screening Interpretation: Negative Thrive Assessment: Date of Thrive Assessment Date Thrive assessed 09/07/24 09/07/24 16:37 Currently or been in a relationship where the following occur: No concerns reported Const Other: General: No confusion Respiratory: Normal respiratory effort, clear to auscultation bilaterally Cardiovascular: No jugular venous distension, regular rate, regular rhythm, S1 normal heart sound present and S2 normal heart sound present Skin: Lesions noted in axillary area Office Procedures Flu Questionnaire Does the patient have a severe egg allergy?: No Results AMB Hemoglobin A1c AMB Hemoglobin A1c 5.5 % Last Edit by SUPRIYA Jaramillo on 09/07/24 17:02 Immunizations Fluarix Triv [id number] (PF) 45 mcg (15 mcg x 3)/0.5 mL IM syringe Performing Provider: Lani Gilbert MD Per[facility] Documented (not given) by: SUPRIYA Jaramillo on 09/07/24 16:38 Reason Not Given: Patient Refused Results Reviewed Results Reviewed: Laboratory Last Values Hgb A1c (Clinic) 5.5 % (4.0-6.0) 09/07/24 16:56 Coding Level of Care Code Est Pt Level 4 (13226) Complex EM visit Add On G2211 Diagnoses Impaired glucose tolerance R73.02 BMI 50.0-59.9, adult Z68.43 Hidradenitis suppurativa L73.2 Elevated blood pressure reading without diagnosis of hypertension R03.0 Additional Codes TESS-7 Assessment Billing - TESS-7 Assessment Tool: TESS-7 Assessment 07260 ([id number]) PHQ-9 - 96901 - PHQ-9 Billing: Yes ([id number]) Time Spent (min) 23 Assessment & Plan Assessment & Plan (1) Impaired glucose tolerance: Code(s): R73.02 - Impaired glucose tolerance (oral) Category: Medical (2) BMI 50.0-59.9, adult: Code(s): Z68.43 - Body mass index [BMI] 50.0-59.9, adult Category: Medical (3) Hidradenitis suppurativa: Code(s): L73.2 - Hidradenitis suppurativa Category: Medical (4) Elevated blood pressure reading without diagnosis of hypertension: Code(s): R03.0 - Elevated blood-pressure reading, without diagnosis of hypertension Category: Medical Plan - Monitor blood pressure and recheck in three weeks. Consider antihypertensive medication if readings remain high. - Instruct the patient to complete fasting glucose lab work to assess for diabetes. - Continue current management for hidradenitis suppurativa with dermatological prescriptions. Patient was informed and verbally consented to the use of an ambient scribe for clinic note documentation during this visit. I discussed with the patient the importance of monitoring blood pressure and the potential need for medication if hypertension persists. We talked about the necessity of fasting glucose testing to understand her diabetes risk. Regarding hidradenitis suppurativa, we reviewed her current treatment's effectiveness, and she is advised to continue as per dermatological guidelines. We agreed on lifestyle modifications, particularly continuing tobacco cessation. The patient consented to all aspects of the management plan and is aware of the need for follow-up care, mainly regarding blood pressure monitoring and glucose evaluation. Orders: Orders Lipid Panel Today E78.5 - Hyperlipidemia, unspecified AMB Hemoglobin A1c Today Z13.1 - Encounter for screening for diabetes mellitus Influenza [id number] Immunization Today Z23 - Encounter for immunization Comprehensive [place]. Panel Fast Today R73.02 - Impaired glucose tolerance (oral) Medications: New semaglutide (weight loss) (Wegovy) administer weeks 1 through 4 of therapy 0.25 mg (0.5 mL) subcut QWEEK 2 mL 0RF 4 weeks Z68.43 - Body mass index [BMI] 50.0-59.9, adult Patient Instructions: - Schedule and complete fasting glucose lab work next week. - Return in three weeks for blood pressure re-evaluation. - Continue with the current dermatological regimen for hidradenitis suppurativa. - Maintain tobacco cessation efforts. - Monitor blood pressure regularly at home if possible and report any significant changes. - Stay hydrated and maintain a balanced diet to help with glucose control.
== END 2024-09-07 17:05 | disposition home or self-care (01) ==
PROVIDERS: PCP Internal Medicine; Visit Provider Internal Medicine
DX: R73.02 Impaired glucose tolerance (oral) (principal); Z68.43 Body mass index [BMI] 50.0-59.9, adult; L73.2 Hidradenitis suppurativa; R03.0 Elevated blood-pressure reading, without diagnosis of hypertension; Z23 Encounter for immunization; Z13.1 Encounter for screening for diabetes mellitus

== ENCOUNTER → 2024-09-07 16:24 | Outpatient (BNVA) | payer OTHER, SELFPAY | PROVIDERS: PCP Internal Medicine; Visit Provider Internal Medicine | DX: L73.2 Hidradenitis suppurativa (principal); E78.5 Hyperlipidemia, unspecified; R03.0 Elevated blood-pressure reading, without diagnosis of hypertension; R73.02 Impaired glucose tolerance (oral); Z28.21 Immunization not carried out because of patient refusal | CPT/HCPCS: 83036; 90471; 96127; 99212 ==

== ENCOUNTER → 2024-09-27 12:59 | Outpatient (BNVA) | payer OTHER, SELFPAY | PROVIDERS: PCP Internal Medicine ==

== ENCOUNTER 2024-10-14 01:44 | Emergency (ER) | payer OTHER, SELFPAY ==
--- NOTE | ~2024-10-14 | XR_ITS ---
CLINICAL HISTORY: cough 1 view chest x-ray. Comparison: CR/SR - XR CHEST 2V - 06/03/23 09:44 EDT Findings: No consolidation, pneumothorax, or effusion. Azygous lobe incidentally noted. Heart size normal. Dextroscoliosis present at the thoracic spine. Impression: 1. No acute cardiopulmonary process. No focal pulmonary consolidation. This document has been electronically signed by: Marty Lucero MD on 10/14/2024 02:32:47
[2024-10-14 02:06] VITALS: BP 151/85; PULSE 116; RESP 20; TEMP 37.4; O2SAT 96; BMI 53.2
[2024-10-14 03:42] LABS: Influenza A PCR POSITIVE (Negative); Influenza B PCR NEGATIVE (Negative); Resp Syncy Virus RNA Qual PCR NEGATIVE (Negative); SARS COV2 PCR INHOUSE NEGATIVE (Negative)
--- NOTE | 2024-10-14 04:50 | ED.URI ---
HPI - URI/Sore Throat General Chief Complaint: Upper Respiratory Symptoms Stated Complaint: upper resp Time Seen by Provider: 10/14/24 04:43 Source: patient Mode of arrival: ambulatory Limitations: no limitations History of Present Illness ED Provider: HPI Narrative: Patient has been having cough body aches running nose for last 1 week feels exhausteted cough is mostly dry patient had chest x-ray done which was negative and was found positive for influenza A mucosa patient has had blood pressure 151/85 on arrival Related Data Previous Rx's ?Medication ?Instructions ?Recorded oxycodone 5 mg capsule 5 mg PO BID PRN pain (scale score 07/15/24 7-10) #6 caps acetaminophen 500 mg tablet 1,000 mg (2 x 500 mg) PO Q8H PRN 08/18/24 (Tylenol Extra Strength) pain #30 tabs cyclobenzaprine 10 mg tablet 10 mg PO TID PRN muscle spasm #14 08/18/24 tabs ibuprofen 600 mg tablet 600 mg PO Q6H PRN pain #30 tabs 08/18/24 lidocaine 4 % topical patch 1 patch topical DAILY PRN pain #30 08/18/24 (AsperFlex (lidocaine)) ea semaglutide (weight loss) 0.25 0.25 mg (0.5 mL) subcut QWEEK 4 09/07/24 mg/0.5 mL subcutaneous pen weeks #2 mL injector (Wegovy) ferrous sulfate 325 mg (65 mg 325 mg PO DAILY 90 days #90 tabs 09/23/24 iron) tablet blood pressure test kit-large #1 ea 09/29/24 (Advocate Blood Pressure Monitor kit) codeine 10 mg-guaifenesin 100 mg/5 10 ml PO Q6H PRN cough #237 mL 10/14/24 mL oral liquid Allergies Allergy/AdvReac Type Severity Reaction Status Date / Time No Known Allergies Allergy Verified 10/14/24 02:06 Review of Systems Review of Systems: Yes all other systems are reviewed and are negative [facility] Past Medical History Medical History Sleep apnea Strep pharyngitis Surgical History History of tubal ligation History of cholecystectomy History of Family History Family History Father Diabetes Hypertension Mother Hypertension Diabetes High cholesterol Heart problem Family/Other Mental health disorder Substance use disorder Maternal Aunt Breast cancer, Onset Age: 65 Maternal Uncle Prostate CA Sister Diabetes Brother Diabetes Brother No problems noted. Son No problems noted. Son ADHD Son ADHD Other Throat cancer Social History Social History Housing: Apartment Alcohol intake: never Patient Tobacco Use Status: Current everyday Tobacco user Tobacco use type: Cigarette Cigarettes Per Day: 6 e-Cigarette/Vaping Use: Never Used Second Hand Smoke Exposure: No Advance Directives: No Advance Directives Information Provided: Yes Do you have a plan to hurt others: No Plan service: No Current occupational status: unemployed Cognitive needs: No Hearing needs: No Vision needs: No Physical Exam Vital Signs: Vital Signs: Last Vital Signs Temp 99.3 F 10/14/24 02:06 Pulse 116 H 10/14/24 02:06 Resp 20 10/14/24 02:06 BP 151/85 H 10/14/24 02:06 Pulse Ox 96 10/14/24 02:06 O2 Del Method Room Air 10/14/24 02:06 BMI result Body Mass Index 53.2 Appearance: Alert. Oriented X3. No acute distress. ENT: Pharynx normal. Oral Mucosa moist Neck: Normal inspection. Neck supple. CVS: Normal heart rate and rhythm. Pulses normal. Respiratory: No respiratory distress. Equal air entry bilateral, no wheezing/rales/rhonchi Skin: Skin warm and dry. Normal skin color. Normal skin turgor. Extremities: No lower extremity edema. Neuro: Oriented X 3. Medical Decision Making Medical Decision Making MDM Narrative: Patient influenza a will prescribe codeine cough syrup ppatient already been sick for more than 5 days does have elevated blood pressure advised dietary control Lab Data MDM Lab Attestation statement: I reviewed the patient's lab results. Labs: Lab Results 10/14/24 Range/Units 02:38 Influenza Type A (PCR) POSITIVE A (Negative) Influenza Type B (PCR) NEGATIVE (Negative) RSV RNA Qual (PCR) NEGATIVE (Negative) SARS-CoV-2 RNA (RT-PCR) NEGATIVE (Negative) Discharge Plan Discharge Clinical Impression: Influenza Patient Disposition: Home, Self-Care Instructions: Influenza (ED) Additional Instructions: Drink plenty of fluids Ibuprofen for pain Cough syrup as advised Follow with PCP if not better Prescriptions: New codeine-guaifenesin 10-100 mg/5 mL liquid 10 ml PO Q6H PRN (Reason: cough) Qty: 237 0RF No Action ferrous sulfate 325 mg (65 mg iron) tablet 325 mg PO DAILY 90 Days Qty: 90 1RF (DME) blood pressure test kit-large [Advocate Blood Pressure Monitr] Kit See Rx Instructions .Route Qty: 1 0RF Rx Instructions: As directed cyclobenzaprine 10 mg tablet 10 mg PO TID PRN (Reason: muscle spasm) Qty: 14 0RF ibuprofen 600 mg tablet 600 mg PO Q6H PRN (Reason: pain) Qty: 30 0RF lidocaine [AsperFlex (lidocaine)] 4 % adhesive patch,medicated 1 patch topical DAILY PRN (Reason: pain) Qty: 30 0RF acetaminophen [Tylenol Extra Strength] 500 mg tablet 1,000 mg PO Q8H PRN (Reason: pain) Qty: 30 0RF oxycodone 5 mg capsule 5 mg PO BID PRN (Reason: pain (scale score 7-10)) Qty: 6 0RF Rx Instructions: Partial Fill upon patient request. Wegovy 0.25 mg/0.5 mL pen injector 0.25 mg subcut QWEEK 28 Days Qty: 2 0RF Rx Instructions: administer weeks 1 through 4 of therapy Print Language: Mohawk
[2024-10-14 05:20] VITALS: BP 128/50; PULSE 103; RESP 18; TEMP 37; O2SAT 97
[2024-10-14] MEDS: guaiFEN/Codeine SF 200/20/10ML 10 ML LIQUID PO (05:29)
[2024-10-14 05:37] VITALS: BP 128/50; PULSE 103; RESP 18; TEMP 37; O2SAT 97
== END 2024-10-14 05:38 | disposition home or self-care (01) ==
PROVIDERS: Emergency Provider Internal Medicine; PCP Internal Medicine
DX: J10.1 Influenza due to other identified influenza virus with other respiratory manifestations (principal); R05.9 Cough, unspecified; F17.210 Nicotine dependence, cigarettes, uncomplicated; Z03.818 Encounter for observation for suspected exposure to other biological agents ruled out
CPT/HCPCS: 0241U; 71045; 99283

== ENCOUNTER → 2024-10-14 02:14 | Outpatient (BNV) | payer OTHER, SELFPAY | PROVIDERS: PCP Internal Medicine; Visit Provider Radiology Diagnostic Radiology | DX: R05.9 Cough, unspecified (principal) | CPT/HCPCS: 71045 ==

== ENCOUNTER 2024-12-13 14:47 | Outpatient (AMB) | payer OTHER, SELFPAY ==
--- NOTE | 2024-12-13 14:48 | MHC.OFFVIS ---
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 Skips a month of menses at times. Currently is sexually active. She denies vaginal itching and irritation. STI screening offered; she accepts. She tries to eat healthy and stays active with walking. Denies family history of breast, ovarian or colon cancer. Last pap smear 2022, negative. History of tubal ligation. [facility] Medical History Sleep apnea Strep pharyngitis Surgical History History of tubal ligation History of cholecystectomy History of Family History Father Diabetes Hypertension Mother Hypertension Diabetes High cholesterol Heart problem Family/Other Mental health disorder Substance use disorder Maternal Aunt Breast cancer, Onset Age: 65 Maternal Uncle Prostate CA Sister Diabetes Brother Diabetes Brother No problems noted. Son No problems noted. Son ADHD Son ADHD Other Throat cancer Social History Housing: Apartment Alcohol intake: never Patient Tobacco Use Status: Current everyday Tobacco user Tobacco use type: Cigarette Cigarettes Per Day: 6 e-Cigarette/Vaping Use: Never Used Second Hand Smoke Exposure: No service: No Current occupational status: unemployed Cognitive needs: No Hearing needs: No Vision needs: No Female Reproductive History Menstrual Age of Menarche: 13 Date of last menstrual period: 12/08/24 control method: permanent sterilization Permanent Sterilization: BTL Total pregnancies: 3 Full term: 3 Number of Living Children: 3 Date of last pap smear: 04/22/23 (neg pap and hpv) Review of Systems Const All systems reviewed & are unremarkable except as noted in HPI and below Reports as per HPI Eyes Reports no additional complaints ENT Reports no additional complaints Card Reports no additional complaints Resp Reports no additional complaints GI Reports as per HPI and Reports no additional complaints Reports as per HPI Musc Reports no additional complaints Skin/Breast Reports as per HPI Neuro Reports no additional complaints Psych Reports no additional complaints Endo Reports no additional complaints Ricco/Lymph Reports no additional complaints Aller/Immun Reports no additional complaints Physical Exam Vital Signs: Last Vital Signs BP 120/82 12/13/24 14:50 BMI result Body Mass Index 54.6 Const General: cooperative, healthy appearing, no acute distress, well developed and alert Orientation/consciousness: patient oriented x3 HEENT Head: Yes normal to inspection Eyes General: appearance normal, both eyes and all related structures Neck Neck: Yes normal visual inspection Thyroid: Thyroid normal Chest Chest palpation & inspection: normal inspection of the chest and other (no puckering, dimpling, peau de orange, retraction, discharge, masses) Breast/axilla inspection: normal inspection of the breasts Breast/axilla palpation: normal palpation of the breasts Resp Effort & Inspection: normal respiratory effort GI Inspection: Yes normal to inspection, Yes obesity and Yes scar Palpation (GI): Soft to palpation Rectal Exam - Female: deferred General: Yes bladder normal to palpation External Female Exam: normal external appearance and normal appearance of the urethra Speculum Exam - Vagina: normal appearance of the vagina, normal palpation, normal vaginal discharge and vaginal bleeding (Small amount) Speculum Exam - Cervix: normal appearance of the cervix and normal palpation Bimanual exam- vagina & uterus: normal bimanual exam, normal palpation, uterine size normal, bladder normal to palpation, normal palpation and non-tender Bimanual Exam- Adnexa, other: no masses OB/external & speculum: vaginal bleeding (Small amount) Skin Other: large skin tag,growth upper inner thigh General skin exam: no rashes or lesions noted Rashes: no rashes Neuro General: patient oriented x3 Cognition (Neuro): normal cognition Extrem General: Yes normal to inspection Psych Attitude: cooperative Thought process: Normal thought process present Assessment & Plan Assessment & Plan (1) Encounter for well woman exam with routine gynecological exam: Code(s): Z01.419 - Encounter for gynecological examination (general) (routine) without abnormal findings Category: Medical Plan Discussed: Informed she does not have a abscess it is a very large appearing skin tag/growth, appointment to be made with Dr. Sylvester for consult for removal. Current recommendations for pap smears per ASCCP guidelines. Breast awareness and periodic breast exams. Maintain a healthy lifestyle including a well balanced diet and routine exercise. Monitor menstrual cycles, report any unscheduled bleeding, bleeding episodes <24 days apart or heavy/prolonged menstrual bleeding or skipping cycles greater than 2 months apart. Call the office for a follow up for any concerns. Patient verbalizes understanding and agrees to the plan of care. She was given opportunity to ask questions and all questions were answered to the best of my ability. 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 This note is constructed using voice recognition software. While every effort has been made to ensure accuracy, transfer and pumphouse operator errors may have been included. Coding Level of Care Code Est Pt Prev Care 18-39y(60726) Diagnoses Encounter for well woman exam with routine gynecological exam Z01.419
[2024-12-13 14:50] VITALS: BP 120/82; BMI 54.6
== END 2024-12-13 15:28 | disposition home or self-care (01) ==
LOC: HO.HWS 14:47
PROVIDERS: PCP Internal Medicine; Visit Provider Advanced Practice Midwife
DX: Z01.419 Encounter for gynecological examination (general) (routine) without abnormal findings (principal)
CPT/HCPCS: 99395; 99459

== ENCOUNTER → 2024-12-13 14:47 | Outpatient (BNVA) | payer OTHER, SELFPAY | PROVIDERS: PCP Internal Medicine; Visit Provider Advanced Practice Midwife | DX: Z01.419 Encounter for gynecological examination (general) (routine) without abnormal findings (principal) | CPT/HCPCS: 99395; 99459 ==

== ENCOUNTER 2024-12-19 09:34 | Outpatient (AMB) | payer OTHER, SELFPAY ==
--- NOTE | 2024-12-19 11:38 | MHC.OFFVISWM ---
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* Inventory Control Coordinator Required: Yes Inventory Control Coordinator Services: Inventory Control Coordinator Present Information Interpreted: clinical only Allergies No Known Allergies Allergy (Verified 12/19/24 11:38) Medication List - Last Reconciled 12/19/24 by Vinnie Leone MD acetaminophen (Tylenol Extra Strength) 1,000 mg (2 x 500 mg) PO Q8H PRN blood pressure test kit-large ([facility] Blood Pressure Monitor kit) As directed ferrous sulfate 325 mg PO DAILY 90 days ibuprofen 600 mg PO Q6H PRN HPI HPI 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*: Details: Start time: 11.30am, End time: 12.30pm I spent 55 minutes speaking with the patient on the phone plus an additional 5 minutes reviewing and updating records for a total of 60 minutes HPI Comments Details: Previous weight loss efforts: self diet and exercise Wakes up: 7.30am, Sleeps: 11pm Breakfast: occasionally (boiled egg or canned chicken) Lunch: 1-2pm (chicken, salmon, rice, vegetables) Dinner: 6pm (same as lunch) Snacks: none Exercise: Gym membership Beverages: Coffee/tea: none, soda: Coke zero, juice: none, ETOH: none PFSH Medical History (Updated 12/19/24 @ 11:50 by Vinnie Leone MD) DJD (degenerative joint disease) GERD (gastroesophageal reflux disease) Sleep apnea Strep pharyngitis Surgical History History of tubal ligation History of cholecystectomy History of Family History Father Diabetes Hypertension Mother Hypertension Diabetes High cholesterol Heart problem Family/Other Mental health disorder Substance use disorder Maternal Aunt Breast cancer, Onset Age: 65 Maternal Uncle Prostate CA Sister Diabetes Brother Diabetes Brother No problems noted. Son No problems noted. Son ADHD Son ADHD Other Throat cancer Social History (Reviewed 12/13/24 @ 15:14 by MAYTE Shahid Housing: Apartment Alcohol intake: never Patient Tobacco Use Status: Current everyday Tobacco user Tobacco use type: Cigarette Cigarettes Per Day: 6 e-Cigarette/Vaping Use: Never Used Second Hand Smoke Exposure: No service: No Current occupational status: unemployed Cognitive needs: No Hearing needs: No Vision needs: No Female Reproductive History Menstrual Age of Menarche: 13 Telehealth Telehealth Telehealth Platform: Telephone Location of provider rendering services: practice address Location of patient: address on file Patient Identification confirmed using: Name, : Yes Telehealth method: voice only Patient verbally consented to treatment: Yes Patient verbally consented to billing insurance company: Yes Patient informed of any privacy concerns related to visit: Yes Minutes spent on Phone/Video with Pt.: 60 Assessment & Plan Assessment & Plan (1) Morbid obesity: Code(s): E66.01 - Morbid (severe) obesity due to excess calories Category: Medical Plan: 1. Plan for lap sleeve gastrectomy. If diaphragmatic or ventral hernias are present at time of surgery, these will be repaired laparoscopically as well. I emphasized the importance of close follow-up, adherence to instructions and good communication. The surgery does not replace the need to change your lifestlyle which is the cause of the obesity problem. The surgery provides the motivation to try again to change your lifestyle, it reduces the appetite and make the transition to a better lifestyle easier and doubles the amount of weight you would lose compared to doing the lifestyle change without the surgery. You will need to be on a liquid diet with protein shakes for 2 weeks before surgery to maximize weight loss and boost your nutritional status to recover better from surgery and also for the first two weeks after surgery to let the stomach heal before we introduce other foods. After the first 2 weeks we will introduce protein bars and soft foods like scrambled eggs, cottage cheese and yogurt and after the 6th week will introduce meat, fish and cooked vegetables in small amounts. Over time you should be able to eat everything in small amounts. Side effects like nausea, vomiting, heartburn or abdominal pain are not common in the practice unless you are not following in the practice. This operation requires lifetime commitment to following in our practice and communication with me. You will much less weight and experience side effects if you don?t communicate or not following in the practice. Complications are rare and in our practice is about 1/10 of the national average. However, you can develop bleeding that may require transfusion (hasn?t happened for year in the practice), you may from complications (we did not have any deaths in the practice) and infections. Infections are usually a result of breakdown in communication or not understanding or following directions correctly. They are difficult to treat, they can happen during the first 6 weeks, they may require to be in the hospital for weeks or even months, not being able to eat by mouth and you may have drains and surgeries to try and correct the issue. Other risks and complications include possible conversion to an open procedure, leaks, small bowel obstruction, blood clots, cardiac, or pulmonary complications, as termite exterminator helper complications such as ulcers, insufficient weight loss and vitamin deficiencies. 2. Nutritional counseling. Start with 2 premade PREMIER protein (buy at [email or web address] or [employer]) shakes at 8am-10am and 11am-1pm, 1 Fit Crunch protein bar (buy at [employer] or [email or web address]) at 2pm-4pm, dinner at 5pm (10 forks of protein and 10 forks of salad/vegetables) and one more protein bar after dinner at 7pm-9pm. If you feel hungry please eat another HALF Fit Crunch protein bar at 10pm-11pm. So you do 2 protein shakes, 2 to 2.5 protein bars and one meal per day. Meal to include lean meat (beef, fish, pork, turkey, chicken), or malay yogurt, or egg whites, or beans with a salad with olive oil and fruits (berries, pears, apples, kiwi). Avoid salt, breads, potatoes, rice, pasta, desserts. 3. Each shake would be drunk slowly, like coffee in a period of 2 hours. 4. Cut each bar in 4 pieces and eat each piece in 30min to make each bar last 2 hours. 5. I emphasized the importance of measuring accurately the food portion and measure it when serving the food in plate 6. The meal portions include 10 full-size forks of meat and 10 full-size forks of salad. You always eat the meat portion but you can replace up to 5 forks for salad/vegetables with rice, potatoes or pasta, or a fruit if you like. The less you do it the better weight loss will be. 7. One full-size fork is what it can be scooped on the fork without falling aside and not what can be bit with the fork. Use regular forks like those you find in a typical restaurant. 8. Please buy the body composition scale we discussed and send me weight measurements as soon as possible and then once a week. Always include your diet and exercise plan. 9. Start treadmill with an incline of 0.0 and speed of 2.5. Increase incline by 1 every 3 min to a max incline of 6.0, stay 3min at 6.0 and then return to 0.0 and repeat same steps until calorie goal is met. Goal is to burn 2000 calories per week on exercise, which means either 300 calories daily, or 400 calories 5 days per week. 10. The best choice would be to purchase a stationary bike at home that can track calories. Let me know if you do so I can give you an exercise plan. 11. It is important of avoiding and for at least 18 months postoperatively and has been discussed at the infosession. 12. Goal is to lose at least 1.5-2lbs per week 13. Goal to lose 10% of your weight before surgery, which is about 33lbs. Ultimate weight goal: 295lbs before surgery 14. Please follow the diet plan exactly without any change. If you don't like something about the plan or you feel hungry you need to communicate with me so I can help you revise the plan. You should not change the plan yourself 15. To be scheduled for EGD to assess the stomach's anatomy. The possibility of biopsies was discussed. Patient needs to avoid use of NSAIDs and aspirin for 1 week prior to EGD. You must be on liquids only the day before your endoscopy. Risks of perforation and bleeding was discussed with the patient. This will be an outpatient procedure with IV sedation. 16. As of tomorrow, please send me a picture of your meal plate after you measure it, but before you consume it. 17. Please check buy a blood pressure monitor, check your blood pressure every morning and send me the readings daily Orders: Orders IRON PROFILE Today E66.01 - Morbid (severe) obesity due to excess calories, I10 - Essential (primary) hypertension, K21.9 - Gastro-esophageal reflux disease without esophagitis, Z68.43 - Body mass index [BMI] 50.0-59.9, adult Comprehensive Met. Panel Today E66.01 - Morbid (severe) obesity due to excess calories, I10 - Essential (primary) hypertension, K21.9 - Gastro-esophageal reflux disease without esophagitis, Z68.43 - Body mass index [BMI] 50.0-59.9, adult C Reactive Protein Today E66.01 - Morbid (severe) obesity due to excess calories, I10 - Essential (primary) hypertension, K21.9 - Gastro-esophageal reflux disease without esophagitis, Z68.43 - Body mass index [BMI] 50.0-59.9, adult Vitamin B1 Today E66.01 - Morbid (severe) obesity due to excess calories, I10 - Essential (primary) hypertension, K21.9 - Gastro-esophageal reflux disease without esophagitis, Z68.43 - Body mass index [BMI] 50.0-59.9, adult Vitamin A Today E66.01 - Morbid (severe) obesity due to excess calories, I10 - Essential (primary) hypertension, K21.9 - Gastro-esophageal reflux disease without esophagitis, Z68.43 - Body mass index [BMI] 50.0-59.9, adult TSH reflex Free T4 Today E66.01 - Morbid (severe) obesity due to excess calories, I10 - Essential (primary) hypertension, K21.9 - Gastro-esophageal reflux disease without esophagitis, Z68.43 - Body mass index [BMI] 50.0-59.9, adult FL upper GI w air Today E66.01 - Morbid (severe) obesity due to excess calories, I10 - Essential (primary) hypertension, K21.9 - Gastro-esophageal reflux disease without esophagitis, Z68.43 - Body mass index [BMI] 50.0-59.9, adult Insulin Today E66.01 - Morbid (severe) obesity due to excess calories, I10 - Essential (primary) hypertension, K21.9 - Gastro-esophageal reflux disease without esophagitis, Z68.43 - Body mass index [BMI] 50.0-59.9, adult Hemoglobin A1c Today E66.01 - Morbid (severe) obesity due to excess calories, I10 - Essential (primary) hypertension, K21.9 - Gastro-esophageal reflux disease without esophagitis, Z68.43 - Body mass index [BMI] 50.0-59.9, adult H Pylori Breath Test Today E66.01 - Morbid (severe) obesity due to excess calories, I10 - Essential (primary) hypertension, K21.9 - Gastro-esophageal reflux disease without esophagitis, Z68.43 - Body mass index [BMI] 50.0-59.9, adult Complete Blood Count Auto Diff Today E66.01 - Morbid (severe) obesity due to excess calories, I10 - Essential (primary) hypertension, K21.9 - Gastro-esophageal reflux disease without esophagitis, Z68.43 - Body mass index [BMI] 50.0-59.9, adult Lipid Panel Today E66.01 - Morbid (severe) obesity due to excess calories, I10 - Essential (primary) hypertension, K21.9 - Gastro-esophageal reflux disease without esophagitis, Z68.43 - Body mass index [BMI] 50.0-59.9, adult Vitamin B12 and Folate Today E66.01 - Morbid (severe) obesity due to excess calories, I10 - Essential (primary) hypertension, K21.9 - Gastro-esophageal reflux disease without esophagitis, Z68.43 - Body mass index [BMI] 50.0-59.9, adult Zinc Today E66.01 - Morbid (severe) obesity due to excess calories, I10 - Essential (primary) hypertension, K21.9 - Gastro-esophageal reflux disease without esophagitis, Z68.43 - Body mass index [BMI] 50.0-59.9, adult Ferritin Today E66.01 - Morbid (severe) obesity due to excess calories, I10 - Essential (primary) hypertension, K21.9 - Gastro-esophageal reflux disease without esophagitis, Z68.43 - Body mass index [BMI] 50.0-59.9, adult Vitamin D 25-OH Total Today E66.01 - Morbid (severe) obesity due to excess calories, I10 - Essential (primary) hypertension, K21.9 - Gastro-esophageal reflux disease without esophagitis, Z68.43 - Body mass index [BMI] 50.0-59.9, adult US abdomen comp w elastography Today E66.01 - Morbid (severe) obesity due to excess calories, I10 - Essential (primary) hypertension, K21.9 - Gastro-esophageal reflux disease without esophagitis, Z68.43 - Body mass index [BMI] 50.0-59.9, adult XR chest 2V Today E66.01 - Morbid (severe) obesity due to excess calories, I10 - Essential (primary) hypertension, K21.9 - Gastro-esophageal reflux disease without esophagitis, Z68.43 - Body mass index [BMI] 50.0-59.9, adult ECG 12 lead EKG Today E66.01 - Morbid (severe) obesity due to excess calories, I10 - Essential (primary) hypertension, K21.9 - Gastro-esophageal reflux disease without esophagitis, Z68.43 - Body mass index [BMI] 50.0-59.9, adult Referrals Nutrition/Dietitian Referral E66.01 - Morbid (severe) obesity due to excess calories, I10 - Essential (primary) hypertension, K21.9 - Gastro-esophageal reflux disease without esophagitis, Z68.43 - Body mass index [BMI] 50.0-59.9, adult Behavioral Health Referral E66.01 - Morbid (severe) obesity due to excess calories, I10 - Essential (primary) hypertension, K21.9 - Gastro-esophageal reflux disease without esophagitis, Z68.43 - Body mass index [BMI] 50.0-59.9, adult
[2024-12-19 12:02] VITALS: BMI 54.7
== END 2024-12-19 12:31 | disposition home or self-care (01) ==
LOC: HO.HBS 09:34
PROVIDERS: PCP Internal Medicine; Visit Provider Surgery
DX: E66.813 Obesity, class 3 (principal); Z68.43 Body mass index [BMI] 50.0-59.9, adult
CPT/HCPCS: 99215

== ENCOUNTER 2024-12-28 11:43 | Outpatient (REF) | payer OTHER, SELFPAY ==
--- NOTE | ~2024-12-28 | XR_ITS ---
EXAMINATION: XR CHEST CLINICAL INFORMATION: E66.01 - Morbid (severe) obesity due to excess calories COMPARISON: 10/14/2024 TECHNIQUE: 2 views of the chest were obtained. FINDINGS: The cardiac, hilar, and mediastinal contours are normal. The lungs are clear bilaterally. Azygos lobe noted. There is no pneumothorax or pleural effusion. There is no focal osseous or soft tissue abnormality. Moderate right convex scoliosis of the thoracic spine with a mild rotatory component. XR/XR chest 2V IMPRESSION: No active pulmonary disease. Electronically signed by: Adriel Juarez MD 12/31/2024 04:10 PM EDT
--- NOTE | 2024-12-28 11:53 | ECG_ITS ---
Test Reason : E66.01 Blood Pressure : */* mmHG Vent. Rate : 94 BPM Atrial Rate : 94 BPM P-R Int : 144 ms QRS Dur : 84 ms QT Int : 344 ms P-R-T Axes : 14 23 1 degrees QTcB Int : 430 ms Normal sinus rhythm Normal ECG When compared with ECG of 03-Jun-2023 09:08, No significant change was found Referred By: Vinnie Leone Electronically Signed By: NEENA SANDOVAL
[2024-12-28 12:27] LABS: Basophils Absolute Auto 0.1 X10*3/uL (0.0-0.2); Eosinophils Absolute Auto 0.2 X10*3/uL (0.0-0.4); Eosinophils Percent Auto 1.6 % (0-4); Hematocrit 29.4 % (37.0-47.0); Hemoglobin 7.5 g/dl (12.0-16.0); Imm Gran Abs Auto 0.06 X10*3/uL (0.00-0.03); Imm Gran Pct Auto 0.6 % (0.0-0.4); Lymphocytes Absolute Auto 1.8 X10*3/uL (1.2-4.9); Lymphocytes Percent Auto 18.3 % (20-40); MANUAL DIFF FLAG SCAN; Mean Corpuscular HGB Conc 25.5 g/dl (31.0-35.0); Mean Corpuscular Hemoglobin 16.1 pg (27.0-33.0); Monocytes Absolute Auto 0.7 X10*3/uL (0.1-1.2); Monocytes Percent Auto 7.2 % (2-11); Neutrophils Absolute Auto 7.1 x10*3/uL (2.0-8.3); Neutrophils Percent Auto 71.3 % (45-73); PLT CLUMP 1; Red Blood Count 4.67 X10*6/uL (4.20-5.50); SCAN SMEAR FLAG 1
[2024-12-28 12:28] LABS: Estimated Average Glucose 114 mg/dL; Hemoglobin A1C 76.2319 umol/L; Hemoglobin A1c % 5.6 % (<6.0)
[2024-12-28 12:48] LABS: Alanine Aminotransferase 82 U/L (0-31); Albumin Level 4.1 g/dL (3.5-5.0); Alkaline Phosphatase 138 U/L (39-117); Anion Gap 9 (12-20); Aspartate Amino Transferase 45 U/L (5-31); Bilirubin Total 0.8 mg/dL (0.0-1.0); Blood Urea Nitrogen 12 mg/dL (9-16); C Reactive Protein 0.78 mg/dL (< or = 0.50); Calcium 9.1 mg/dL (8.4-10.2); Carbon Dioxide 25 mmol/L (22-29); Chloride 108 mmol/L (96-108); Cholesterol 85 mg/dL (<200); Estimated Glomerular Filt Rate > 60; Glucose Random 108 mg/dL (60-115); HDL Cholesterol 31 mg/dL (>40); Iron 14 mcg/dL (30-160); LDL Cholesterol Calculated 35 mg/dL (<100); Percent Iron Saturation 3 % (15-50); Potassium 3.9 mmol/L (3.3-5.1); Sodium 138 mmol/L (135-145); Total Iron Binding Capacity 402 mcg/dL (228-428); Triglycerides 97 mg/dL (<150); Unsaturated Iron Binding 388 ug/dL
[2024-12-28 12:57] LABS: Platelet Count 305 X10*3/uL (160-400); SLIDE REVIEW VERIFIED
[2024-12-28 13:10] LABS: Ferritin 4 ng/mL (10-122); TSH reflex Free T4 1.58 uIU/mL (0.32-4.0); Vitamin D 25-OH Total 10.3 ng/mL (>30)
[2024-12-28 13:14] LABS: Insulin 43 uU/mL (2-29)
[2024-12-28 13:23] LABS: Folate 12.5 ng/mL (> or = 4.0); Vitamin B12 550 pg/mL (200-900)
[2024-12-31 17:33] LABS: Zinc 67 mcg/dL (60-130)
[2025-01-01 13:03] LABS: Vitamin A 35 mcg/dL (38-98)
[2025-01-05 16:23] LABS: Vitamin B1 <6 nmol/L (8-30)
== END 2024-12-28 11:44 | disposition home or self-care (01) ==
LOC: HO.XRAY 11:43
PROVIDERS: PCP Internal Medicine; Visit Provider Surgery
DX: E66.01 Morbid (severe) obesity due to excess calories (principal); Z68.43 Body mass index [BMI] 50.0-59.9, adult; I10 Essential (primary) hypertension; K21.9 Gastro-esophageal reflux disease without esophagitis
CPT/HCPCS: 36415; 71046; 80053; 80061; 82306; 82607; 82728; 82746; 83036; 83525; 83540; 84425; 84443; 84590; 84630; 85025; 86140; 93005

== ENCOUNTER → 2024-12-28 11:53 | Outpatient (BNV) | payer OTHER, SELFPAY | PROVIDERS: PCP Internal Medicine; Visit Provider Internal Medicine | DX: E66.01 Morbid (severe) obesity due to excess calories (principal) | CPT/HCPCS: 93010 ==

== ENCOUNTER → 2024-12-28 12:53 | Outpatient (BNV) | payer OTHER, SELFPAY | PROVIDERS: PCP Internal Medicine; Visit Provider Radiology Diagnostic Radiology | DX: E66.01 Morbid (severe) obesity due to excess calories (principal) | CPT/HCPCS: 71046 ==

== ENCOUNTER 2025-01-07 08:02 | Day surgery (SDC) | payer OTHER, SELFPAY ==
--- NOTE | 2025-01-03 12:15 | HO.ANESPROP2 ---
Documented by User: Stephanie Mclain NP 01/03/25 12:15 HPI - Anesthesia Eval Consult details Narrative: 34yo F for Upper Endoscopy PMFSH Active Problems Active Problems: All Active Problems Vitamin A deficiency (Acute) Vitamin D deficiency (Acute) DJD (degenerative joint disease) (Acute) GERD (gastroesophageal reflux disease) (Acute) Encounter for well woman exam with routine gynecological exam (Acute) Essential hypertension (Acute) Elevated blood pressure reading without diagnosis of hypertension (Acute) Impaired glucose tolerance (Acute) Hospital discharge follow-up (Acute) Cervical cancer screening (Acute) Pre-op evaluation (Acute) Anemia (Acute) Abnormal uterine bleeding (AUB) (Acute) Hirsutism (Acute) Morbid obesity (Acute) ALLYSON (obstructive sleep apnea) (Acute) BMI 50.0-59.9, adult (Acute) Iron deficiency anemia (Acute) Menorrhagia (Acute) Irregular periods (Acute) Encounter to establish care (Acute) Mild anxiety (Acute) Hidradenitis suppurativa (Acute) Past Medical History Medical History DJD (degenerative joint disease) GERD (gastroesophageal reflux disease) Sleep apnea Strep pharyngitis Family History Family History Father Diabetes Hypertension Mother Hypertension Diabetes High cholesterol Heart problem Family/Other Mental health disorder Substance use disorder Maternal Aunt Breast cancer, Onset Age: 65 Maternal Uncle Prostate CA Sister Diabetes Brother Diabetes Brother No problems noted. Son No problems noted. Son ADHD Son ADHD Other Throat cancer Surgical History Surgical History History of tubal ligation History of cholecystectomy History of Social History Social History Housing: Apartment Alcohol intake: never Patient Tobacco Use Status: Current someday Tobacco user Tobacco use type: Cigarette Cigarettes Per Day: 6 e-Cigarette/Vaping Use: Never Used Second Hand Smoke Exposure: No service: No Current occupational status: unemployed Cognitive needs: No Hearing needs: No Vision needs: No Meds Allergies Allergy/AdvReac Type Severity Reaction Status Date / Time No Known Allergies Allergy Verified 12/19/24 11:38 Assessment and Plan Assessment Anesthesia Assessment: Chart Reviewed Documented by User: Basilia Barclay MD 01/07/25 08:37 PMFSH Past Medical History Medical History DJD (degenerative joint disease) GERD (gastroesophageal reflux disease) Sleep apnea Strep pharyngitis Family History Family History Father Diabetes Hypertension Mother Hypertension Diabetes High cholesterol Heart problem Family/Other Mental health disorder Substance use disorder Maternal Aunt Breast cancer, Onset Age: 65 Maternal Uncle Prostate CA Sister Diabetes Brother Diabetes Brother No problems noted. Son No problems noted. Son ADHD Son ADHD Other Throat cancer Surgical History Surgical History History of tubal ligation History of cholecystectomy History of History of Problems with Anesthesia: No Social History Social History Housing: Apartment Alcohol intake: never Patient Tobacco Use Status: Current someday Tobacco user Tobacco use type: Cigarette Cigarettes Per Day: 6 e-Cigarette/Vaping Use: Never Used Second Hand Smoke Exposure: No service: No Current occupational status: unemployed Cognitive needs: No Hearing needs: No Vision needs: No Meds Allergies Allergy/AdvReac Type Severity Reaction Status Date / Time No Known Allergies Allergy Verified 12/19/24 11:38 Exam Airway Mallampati Class: III TM Dist: >3cm Neck ROM: Full Loose/Missing/Broken Teeth: No Heart: RRR Lungs: CTA Assessment and Plan Assessment Anesthesia Assessment: Anesthesia Plan Discussed Final Anesthetic Review History of Problems with Anesthesia: No NPO: Yes ASA Class: III Final Preanesthetic Review: Meds/Allgs Chart Reviewed, Consent Obtained/Reviewed and Anes Risks/Benef Reviewed Patient Risk: Intermediate Procedure Risk: Intermediate Anesthetic Plan Anesthetic Plan: MAC: Disposition: Standard PACU
[2025-01-07] VITALS (10 sets, daily range): BP systolic 107–155; BP diastolic 58–89; PULSE 83–114; RESP 17–22; TEMP 36.3–36.9; O2SAT 95–98; BMI 53.2
--- NOTE | 2025-01-07 08:32 | P.HPSUR_ITS ---
Pre-Procedural Eval Section A - 24 Hr Update-Section A only Date of Service: 01/07/25 The patient is an INPATIENT: No The patient has been examined within 24 hours of the surgical procedure. The History & Physical has been completed within 30 days and I have reviewed it.: Yes Section B - Complete if H&P > 30 days Chief Complaint: Morbid (severe) obesity due to excess calories Details of Present Illness: Severe anemia Relevant Family History (Specify if Yes): No Relevant Social History: None Present Medications: None Medical History: No relevant PMH History of Previous Operations: No relevant previous surgery Allergies: Allergies Allergy/AdvReac Type Severity Reaction Status Date / Time No Known Allergies Allergy Verified 12/19/24 11:38 Review of Systems Sugical H&P ROS: Negative: Constitution, Cardiovascular, Respiratory, Neurological, Psychiatric, Hem-Onc, Allergic/Immunologic, Gastrointestinal, Genitourinary, Musculoskeletal, Integumentary, Endocrine and Eyes/Ears/Nose/T hroat Exam Surgical H&P Exam: Normal: HEENT, Normal: Heart, Normal: Lungs, Normal: Extremities, Normal: Abdomen, Normal: Skin and Normal: Neurological Plan Diagnosis/Plan: Unchanged (EGD to assess etiology of anemia. Risks of bleeding and perforation were discussed with the patient and she is in agreement with the plan.) I have reviewed the history and physical and performed a pertinent physical examination on my patient. No changes have occurred unless specified. Time Spent With Patient Time: Total time managing care of this patient today ____ minutes.
--- NOTE | 2025-01-07 08:42 | P.BOP_ITS ---
Brief Operative Note Date of Service: 01/07/25 Pre-op diagnosis: Severe anemia Post-op diagnosis: same Procedure: PROCEDURE DATE: 01/07/25 PREOPERATIVE DIAGNOSIS: Severe anemia POSTOPERATIVE DIAGNOSIS: ?Same as above. Normal endoscopy PROCEDURE: Butjnlle-knbrar-rvojfdgmzdps with biopsies Surgeon: Jonathan Leone M.D.. Ph.D. Fire Engine Pump Operator: None ? Anesthesia: IV sedation Estimated blood loss: ?Minimal FINDINGS AND PROCEDURE: ? OPERATIVE INDICATIONS: ?The patient is a 34 year old female known to me who is interested in bariatric surgery. The patient has severe anemia. Based on this information I recommended an upper endoscopy to evaluate the patient's symptoms. Risks and complications of the surgery were discussed with the patient in advance particularly the possibility of perforation or bleeding that may require surgical intervention. The patient understood the risks and was in agreement with the plan. ? PROCEDURE: After informed consent was obtained by the patient, the patient was ?transferred to the Operating Room and was placed in the supine position.? After successful induction of IV sedation, a mouth block was inserted and the patient was placed in the left lateral decubitus position. An upper endoscopy was performed next, the oropharynx and esophagus appeared within the normal limits. There was no hiatal hernia. The z-line was smooth. Two biopsies were obtained from the distal esophagus 2-3 cm proximal to the GE junction and two additional biopsies from the GE junction. The stomach was entered and it appeared to be of normal size. There was no gastritis. There was no stricture or ulcer. A biopsy was obtained from the gastric fundus and the antrum. No significant bleeding was noted from any of the biopsy sites. The scope was then advanced into the duodenum which appeared to be normal as well. Retroflexion of the scope confirmed a normal GE junction. At that point the duodenum ?and the stomach were decompressed and the scope was withdrawn from the patient's mouth. The patient extubated and was transferred in stable condition to the Recovery Room for further care. I was present and performed all steps of the procedure. There were no residents to assist with this case. Avelino Leone M.D., Ph.D. Surgeon: Vinnie Leone MD Anesthesia: MAC Was an Fire Engine Pump Operator used for this Procedure?: No Estimated blood loss (mL): 0 IV fluids (mL): 400 Urine output (mL): 0 (No [place] to record output) Pathology: other (1) antrum x1, 2) fundus x1, 3) GE junction x2, 4) distal esophagus x2) Condition: stable Disposition: PACU
--- NOTE | 2025-01-07 09:34 | PC.NURSE ---
interpreter and translator present at the bedside. Plan is for patient to have an iron transfusion post upper endoscopy. Patient agreeable to plan at this time.
[2025-01-07] MEDS: Iron Sucrose Complex 400 MG in 0.9 % Sodium Chloride 250 ML 108 MG IV (09:53)
--- NOTE | 2025-01-07 12:19 | PC.NURSE ---
PATIENT CAME OVER FROM PACU AFTER AN ENDOSCOPY. PATIENT IS RECEIVING AN IRON INFUSION PRIOR TO DISCHARGE WHICH IS BEING GIVEN BY THE INFUSION CENTER STAFF. PATIENT WAS GIVEN DISCHARGE INSTRUCTIONS FOR THE ENDOSCOPY AND STATES UNDERSTANDING.
--- NOTE | 2025-01-07 12:29 | PC.NURSE ---
PATIENT COMPLETED WITH IRON INFUSION WITHOUT DIFFICULTY. IV REMOVED BY LIANE MEJIA. PATIENT WITHOUT COMPLAINT, NO DIZZINESS, NO LIGHTHEADEDNESS.
== END 2025-01-07 12:40 | disposition home or self-care (01) ==
PROVIDERS: PCP Internal Medicine; Visit Provider Surgery
PROC: 0DJ08ZZ Inspection of Upper Intestinal Tract, Via Natural or Artificial Opening Endoscopic (ICD-10-PCS; CPT 43235; principal; 2025-01-07 09:30)
DX: D64.9 Anemia, unspecified (principal); E66.01 Morbid (severe) obesity due to excess calories; Z68.43 Body mass index [BMI] 50.0-59.9, adult; K21.9 Gastro-esophageal reflux disease without esophagitis; I10 Essential (primary) hypertension; G47.30 Sleep apnea, unspecified; M19.90 Unspecified osteoarthritis, unspecified site; Z86.19 Personal history of other infectious and parasitic diseases; Z79.85 Long-term (current) use of injectable non-insulin antidiabetic drugs; Z79.1 Long term (current) use of non-steroidal anti-inflammatories (NSAID); Z79.899 Other long term (current) drug therapy; Z90.49 Acquired absence of other specified parts of digestive tract; Z56.0 Unemployment, unspecified
CPT/HCPCS: 43239; 88305; 88313; 88342; J1756; J2003; J2250; J2704

== ENCOUNTER → 2025-01-07 08:02 | Outpatient (BNV) | payer OTHER, SELFPAY | PROVIDERS: PCP Internal Medicine; Visit Provider Surgery | DX: D64.9 Anemia, unspecified (principal) | CPT/HCPCS: 43239 ==

== ENCOUNTER 2025-01-10 10:16 | Outpatient (AMB) | payer OTHER, SELFPAY ==
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
== END 2025-01-10 11:06 | disposition home or self-care (01) ==
LOC: HO.HBST 10:16
PROVIDERS: PCP Internal Medicine; Visit Provider Counselor Mental Health
DX: F43.20 Adjustment disorder, unspecified (principal); Z71.89 Other specified counseling
CPT/HCPCS: 90791

== ENCOUNTER → 2025-01-10 10:16 | Outpatient (BNVA) | payer OTHER, SELFPAY | PROVIDERS: PCP Internal Medicine; Visit Provider Counselor Mental Health ==

== ENCOUNTER 2025-01-14 16:46 | Outpatient (AMB) | payer OTHER, SELFPAY ==
[2025-01-14 16:50] VITALS: BP 130/78; BMI 52.7
--- NOTE | 2025-01-14 16:50 | A.OFFPC_ITS ---
Vital Signs 01/14/25 16:50 Height 5 ft 5 in Weight 317 lb BMI 52.7 BP 130/78 Blood Pressure Location Lt brachial Position Sitting Intake Visit Reasons: physical exam Intake Note: Patient here for a physical exam Surgical Training Specialist Required: No Accompanied by: Self / Same As Patient Allergies No Known Allergies Allergy (Verified 01/14/25 16:57) Medication List - Last Reconciled 01/14/25 by Lani Gilbert MD blood pressure test kit-large ([facility] Blood Pressure Monitor kit) As directed cholecalciferol (vitamin D3) 125 mcg PO DAILY ferrous sulfate 325 mg PO DAILY 90 days tirzepatide (weight loss) (Zepbound) 2.5 mg (0.5 mL) subcut QWEEK vitamin A palmitate 3,000 mcg PO DAILY Tobacco use date assessed: 01/14/25 Dental Screening Dental Screen Date: 09/07/24 HPI HPI Comments History of Present Illness Details The patient is a 34-year-old female presenting for a wellness and physical examination. She has a history of obesity and has been managing her weight with the medication Zepbound, starting in July. She reports a weight reduction from 328 pounds in December to 317 pounds during this visit. The patient has been taking Zepbound as a weight management strategy as advised by her healthcare provider. The patient has a history of anemia, with her hemoglobin notably low at 7.5, which necessitated a blood transfusion on the same day as her endoscopy, although the timing of this event is not specified in the conversation. Additionally, she has a known history of depression rated as 3 on an unspecified scale, although specific treatments for her depression were not detailed. Vaccination status includes a discussion around tetanus vaccination, indicating it is overdue, and the patient agreed to receive a Tdap booster during this visit. The patient denied any medication allergies and currently takes Vitamin D, iron, and Vitamin A supplements, suggesting a history of vitamin deficiencies. Social history notes that the patient smoked some days but does not drink alcohol, and detailed family history reveals that both parents are alive with a history of diabetes and high cholesterol. A notable medical procedure history includes a tubal ligation in 2014 to prevent further pregnancies, three deliveries, and a cholecystectomy in the same year. - Administered Tdap vaccine for tetanus prophylaxis. - Monitoring of vitamin levels due to pa st vitamin D deficiency and iron deficiency anemia, with Vitamin D and iron supplements ongoing. - Weight management plan in place with Z epbound and dietary adjustments. - Family history of diabetes and high ch olesterol noted for ongoing monitoring and management. [facility] Medical History (Updated 01/14/25 @ 19:53 by Lani Gilbert MD) DJD (degenerative joint disease) GERD (gastroesophageal reflux disease) Sleep apnea Strep pharyngitis Surgical History History of tubal ligation History of cholecystectomy History of Family History Father Diabetes Hypertension Mother Hypertension Diabetes High cholesterol Heart problem Family/Other Mental health disorder Substance use disorder Maternal Aunt Breast cancer, Onset Age: 65 Maternal Uncle Prostate CA Sister Diabetes Brother Diabetes Brother No problems noted. Son No problems noted. Son ADHD Son ADHD Other Throat cancer Social History Housing: Apartment Alcohol intake: never Patient Tobacco Use Status: Current someday Tobacco user Tobacco use type: Cigarette Cigarettes Per Day: 6 e-Cigarette/Vaping Use: Never Used Second Hand Smoke Exposure: No service: No Current occupational status: unemployed Cognitive needs: No Hearing needs: No Vision needs: No Female Reproductive History Menstrual Age of Menarche: 13 Questionnaire PHQ-9 Over the last 2 weeks, how often have you been bothered by any of the following problems? 1. Little interest or pleasure in doing things: not at all 2. Feeling down, depressed, or hopeless: several days 3. Trouble falling or staying asleep, or sleeping too much: several days 4. Feeling tired or having little energy: several days 5. Poor appetite or overeating: not at all 6. Feeling bad about yourself - or that you are a failure or have let yourself or your family down: not at all 7. Trouble concentrating on things, such as reading the newspaper or watching television: not at all 8. Moving or speaking so slowly that other people could have noticed. Or the opposite - being so fidgety or restless that you have been moving around a lot more than usual: not at all 9. Thoughts that you would be better off or of hurting yourself in some way: not at all Total score: 3 Depression Screening Interpretation: Positive Depression Screening Follow-up: Existing condition and Follow-up Visit Requested Depression Screening Done: Yes 48167 - PHQ-9 Billing: Yes Source: Developed by Drs. Gerson Palencia, Inés Horne, Bhavin Mueller and colleagues, with an educational za from [employer]. Thrive Questionnaire Date Thrive assessed: 09/07/24 I am a: Patient What is your living situation today?: I have a steady place to live Within the past 12 months, did the food you bought not last and you didn't have the money to get more?: Sometimes True Within the past 12 months, did you worry whether your food would run out before you got money to buy more?: Sometimes True Do you have trouble paying for medicines?: No Do you have trouble getting transportation to medical appointments?: No Do you have trouble paying your heating and electricity bill?: Yes Do you have trouble taking care of your child, family member or friend?: No Do you have trouble with day-to-day activities such as bathing, preparing meals, shopping, managing finances, etc.?: No Are you currently unemployed and looking for a job?: No Are you interested in more education?: Yes Please select the resources that you would like help with: Utilities and Education Currently or been in a relationship where the following occur: No concerns reported THRIVE Score: 3 AUDIT C Alcohol Use Questionnaire (AUDIT-C) 1. How often do you have a drink containing alcohol?: Never Total Score: 0 Score Reviewed/Action Taken: No TESS-7 AMB Questionnaire TESS-7 Date TESS - 7 assessed: 09/07/24 Feeling nervous, anxious, or on edge: 0 = Not at all Not being able to stop or control worryin = Not at all Worrying too much about different things: 0 = Not at all Trouble relaxin = Not at all Being so restless that it is hard to sit still: 0 = Not at all Becoming easily annoyed or irritable: 1 = Several days Feeling afraid as if something awful might happen: 0 = Not at all Total TESS-7 score (0-4 normal; 5-9 mild; 10-14 moderate; 15-21 severe): 1 Source: Developed by Drs. Gerson Palencia, Inés Horne, Bhavin Mueller and colleagues, with an educational za from [employer]. TESS-7 Assessment Billing TESS-7 Assessment Tool: TESS-7 Assessment 69188 Review of Systems Const All systems reviewed & are unremarkable except as noted in HPI and below Card Denies chest pain at rest, Denies chest pain with activity, Denies edema, Denies irregular heart rhythm, Denies claudication, Denies dyspnea, Denies dyspnea on exertion, Denies orthopnea, Denies paroxysmal nocturnal dyspnea and Denies slow heart rate Resp Denies cough, Denies dyspnea and Denies dyspnea on exertion Neuro Denies lack of coordination Physical exam (Primary Care) Vital Signs: Last Vital Signs BP 130/78 01/14/25 16:50 BMI result Body Mass Index 52.7 BMI Assessment/Plan discussion: High BMI High, discussed plan: lifestyle, weight reduction, dietary and physical activity Tobacco/Smoking Status: Tobacco use Status Tobacco use date assessed 01/14/25 01/14/25 16:55 Patient Tobacco Use Status Current someday Tobacco 01/14/25 16:55 Tobacco use type Cigarette 01/14/25 16:55 e-Cigarette/Vaping Use Never Used 01/14/25 16:55 PHQ-9: PHQ-9 Score PHQ-9: Total score 3 01/14/25 17:13 Depression Screening Interpretation: Positive Depression Screening Follow-up: Existing condition and Follow-up Visit Requested Thrive Assessment: Date of Thrive Assessment Date Thrive assessed 09/07/24 01/14/25 16:55 Currently or been in a relationship where the following occur: No concerns reported [facility] Head: Yes normal to inspection, Yes normocephalic and Yes atraumatic Ears: external ears normal Eyes General: appearance normal, both eyes and all related structures Eyelids: Yes eyelids normal Conjunctivae: conjunctivae normal Neck Neck: Yes normal visual inspection and Yes supple Resp Effort & Inspection: normal respiratory effort Auscultation: clear to auscultation bilaterally Cardio Jugular venous distension: no JVD Rate: regular rate Rhythm: regular rhythm Heart sounds: S1 normal heart sound present and S2 normal heart sound present GI Inspection: Yes normal to inspection Palpation (GI): Soft to palpation and nontender Auscultation: normal bowel sounds Skin General skin exam: no rashes or lesions noted Neuro General: no focal motor deficits Extrem General: Yes full ROM Psych Appearance: grossly normal Immunizations Boostrix Tdap 2.5 Lf unit-8 mcg-5 Lf/0.5 mL intramuscular syringe Performing Provider: Lani Gilbert MD [facility] Administered by: IRMA Gómez on 01/14/25 17:13 Dose Route Admin Location Dispensed Lot Number Expiration Date [facility][NOTE 3] Steak Sauce Maker 0.5 mL IM Right Deltoid 0.5 mL [id number] 04/30/27 66657-540-99 [employer] VIS Given Date VIS Provided VIS Publication Date 01/14/25 Single Vaccine 24 Eligibility Eligibility Date Funding Source Not [facility] Eligible 01/14/25 Private Coding Level of Care Code Est Pt Prev Care 18-39y(42380) Diagnoses Physical exam Z00.00 Morbid obesity E66.01 Additional Codes TESS-7 Assessment Billing - TESS-7 Assessment Tool: TESS-7 Assessment 63688 ([id number]) PHQ-9 - 43440 - PHQ-9 Billing: Yes ([id number]) Time Spent (min) 31 Assessment & Plan Assessment & Plan (1) Physical exam: Code(s): Z00.00 - Encounter for general adult medical examination without abnormal findings Category: Medical (2) Morbid obesity: Code(s): E66.01 - Morbid (severe) obesity due to excess calories Category: Medical Plan The patient received the Tdap vaccine to update her immunization status. Weight management efforts with Zepbound have shown results, and she is encouraged to maintain lifestyle changes alongside monitoring of vitamin levels due to her prior deficiencies. The patient's anemia, previously requiring transfusion, will continue to be managed with iron supplementation. Depression is also noted, though mild. Routine surveillance of her chronic conditions, considering family history, remains essential. Patient was informed and verbally consented to the use of an ambient scribe for clinic note documentation during this visit. I discussed with the patient the importance of updating her tetanus immunization with a Tdap vaccine. We reviewed the effectiveness of the Zepbound for weight management, noting positive results. I explained that further lifestyle and dietary modifications could continue to enhance her health. The patient's history of anemia was acknowledged, and the need for regular monitoring of hemoglobin and vitamin levels was emphasized. Depression assessment continues as part of her overall health care. We agreed on ongoing follow-up, considering her family's history of diabetes and dyslipidemia. Orders: Orders TDaP Immunization Today Z23 - Encounter for immunization Patient Instructions: - Receive the Tdap vaccine today. - Continue taking prescribed iron and Vitamin D supplements. - Maintain current diet and exercise regimen to support weight loss. - Monitor mood for symptoms of depression. - Schedule routine follow-up visits and lab checks as discussed.
== END 2025-01-14 17:13 | disposition home or self-care (01) ==
LOC: HO.HMCH 16:46
PROVIDERS: PCP Internal Medicine; Visit Provider Internal Medicine
DX: Z00.00 Encounter for general adult medical examination without abnormal findings (principal); E66.01 Morbid (severe) obesity due to excess calories; Z68.43 Body mass index [BMI] 50.0-59.9, adult; Z23 Encounter for immunization

== ENCOUNTER → 2025-01-14 16:46 | Outpatient (BNVA) | payer OTHER, SELFPAY | PROVIDERS: PCP Internal Medicine; Visit Provider Internal Medicine | DX: Z00.00 Encounter for general adult medical examination without abnormal findings (principal); E66.01 Morbid (severe) obesity due to excess calories; Z23 Encounter for immunization; Z68.43 Body mass index [BMI] 50.0-59.9, adult | CPT/HCPCS: 90471; 90715; 96127; 99395 ==

== ENCOUNTER 2025-01-31 09:42 | Outpatient (REF) | payer OTHER, SELFPAY ==
--- NOTE | ~2025-01-31 | US_ITS ---
EXAMINATION: US ABDOMEN COMPLETE WITH LIVER ELASTOGRAPHY HISTORY: E66.01 - Morbid (severe) obesity due to excess calories TECHNIQUE: Real-time grayscale ultrasound imaging of the abdomen was performed and images were reviewed. COMPARISON: Comparison is made with the prior examination dated 04/15/2022. FINDINGS: Liver: The right lobe of the liver measures 19.6 cm in size. The left lobe of the liver measures 14.1 cm in size. The liver demonstrates increased echotexture, consistent with steatosis. No focal mass or intrahepatic biliary ductal dilatation is identified. There is normal hepatopedal flow in the portal vein. Ultrasound elastography of the liver was performed with 10 separate measurements of the liver parenchyma with the patient in the supine position. Measurements were obtained approximately 2 cm below Maria Antonia's capsule and perpendicular to the capsule. Images are of satisfactory quality. The median shear wave velocity is 0.89 m/s (previously 1.72 m/s, although this was performed on a machine from a different vendor). The interquartile range/median (IQR/median) is 0.28. Gallbladder and biliary tree: The gallbladder is surgically absent. There is no sonographic Santana sign. The common bile duct is normal in caliber measuring 6 mm. Kidneys: The right kidney measures 13.7 cm in length. The left kidney measures 15.4 cm in length. The kidneys are unremarkable, without evidence of masses, hydronephrosis, or calculi. Pancreas: The pancreatic head, neck, and body are unremarkable. The pancreatic tail is obscured by bowel gas. Spleen: The spleen is normal in size and contour, measuring 16.1 cm in length. Abdominal aorta and inferior vena cava: The visualized portions of the abdominal aorta and inferior vena cava are normal in caliber. There is no free fluid in the abdomen. US/US abdomen comp w elastography IMPRESSION: Hepatosplenomegaly and hepatic steatosis. The median shear wave velocity in the liver is 0.89 m/s, corresponding to a median liver stiffness of 2.4 kPa. The IQR/median value is 0.28. This is indicative of a quality data set. Findings are indicative of a normal elastography value with a low likelihood of severe fibrosis or cirrhosis. REFERENCE: Society of Radiologists in Ultrasound Liver Stiffness Thresholds (2020): LIVER STIFFNESS THRESHOLDS: *Shear wave velocity less than 1.3 m/s (Liver Stiffness equal or less than 5 kPa): High probability of being normal. *Shear wave velocity less than 1.7 m/s (Liver Stiffness less than 9 kPa): In the absence of other known clinical signs, rules out compensated advanced chronic liver disease. *Shear wave velocity between 1.7-2.1 m/s (Liver Stiffness 9-13 kPa): Suggestive of compensated advanced chronic liver disease but need further test for confirmation. *Shear wave velocity between 2.1-2.4 m/s (Liver Stiffness 13-17 kPa): Rules in compensated advanced chronic liver disease. *Shear wave velocity greater than 2.4 m/s (Liver Stiffness over 17 kPa): Suggestive of clinically significant portal hypertension. QUALITY OF DATA SET: *IQR/Median value equal or less than 0.30 implies a quality data set. *IQR/Median value over 0.30 implies a poor quality data set. SIGNIFICANT CHANGE FROM PRIOR EXAM: Significant change if liver stiffness measurement is 10% or greater from prior exam. OTHER CONSIDERATIONS: The stage of liver fibrosis may be overestimated in the setting of acute hepatitis, liver inflammation, elevated liver function tests, hepatic vascular congestion, obstructive cholestasis, non-fasting state, and infiltrative diseases such as amyloidosis and lymphoma. In some patients with NAFLD, the liver stiffness thresholds for compensated advanced chronic liver disease may be lower. In causes other than viral hepatitis and NAFLD, liver stiffness thresholds are not well established. Electronically signed by: Gerson Paris MD 01/31/2025 10:24 AM EDT
== END 2025-01-31 09:43 | disposition home or self-care (01) ==
LOC: HO.US 09:42
PROVIDERS: PCP Internal Medicine; Visit Provider Surgery
DX: E66.01 Morbid (severe) obesity due to excess calories (principal); Z68.43 Body mass index [BMI] 50.0-59.9, adult; K21.9 Gastro-esophageal reflux disease without esophagitis; I10 Essential (primary) hypertension
CPT/HCPCS: 76700; 76981

== ENCOUNTER → 2025-01-31 09:44 | Outpatient (BNV) | payer OTHER, SELFPAY | PROVIDERS: PCP Internal Medicine; Visit Provider Radiology Diagnostic Radiology | DX: R16.2 Hepatomegaly with splenomegaly, not elsewhere classified (principal); K76.0 Fatty (change of) liver, not elsewhere classified | CPT/HCPCS: 76700 ==

== ENCOUNTER 2025-02-07 12:13 | Outpatient (AMB) | payer OTHER, SELFPAY ==
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
== END 2025-02-07 13:20 | disposition home or self-care (01) ==
LOC: HO.HBST 12:13
PROVIDERS: PCP Internal Medicine; Visit Provider Counselor Mental Health
DX: F43.20 Adjustment disorder, unspecified (principal); Z71.89 Other specified counseling
CPT/HCPCS: 90837

== ENCOUNTER 2025-03-07 12:15 | Outpatient (AMB) | payer OTHER, SELFPAY ==
--- NOTE | 2025-03-07 12:10 | MHC.WMTHER ---
Intake Intake Visit Reasons: VIDEO F/U Allergies No Known Allergies Allergy (Verified 04/25/25 10:59) [facility] Medical History (Updated 04/20/25 @ 00:03 by Deann Freitas) Physical exam Encounter for well woman exam with routine gynecological exam Hospital discharge follow-up Cervical cancer screening Pre-op evaluation BMI 50.0-59.9, adult Elevated LFTs Anemia DJD (degenerative joint disease) GERD (gastroesophageal reflux disease) Sleep apnea Strep pharyngitis Surgical History (Updated 04/25/25 @ 11:00 by Sahra Clayton CMA) S/P gastric sleeve procedure History of esophagogastroduodenoscopy (EGD) (01/07/25) History of tubal ligation History of cholecystectomy History of Family History Father Diabetes Hypertension Mother Hypertension Diabetes High cholesterol Heart problem Family/Other Mental health disorder Substance use disorder Maternal Aunt Breast cancer, Onset Age: 65 Maternal Uncle Prostate CA Sister Diabetes Brother Diabetes Brother No problems noted. Son No problems noted. Son ADHD Son ADHD Other Throat cancer Social History Household Members: Spouse, Family and Children Housing: Apartment Are you a primary social worker palliative care to a significant other at home: Yes (children) Do you presently have visiting nurse or other home services: No 75 years or older and lives alone: No Alcohol intake: never Patient Tobacco Use Status: Former Tobacco user Tobacco use type: Cigarette Cigarettes Per Day: 6 e-Cigarette/Vaping Use: Never Used Second Hand Smoke Exposure: No service: No Current occupational status: unemployed Cognitive needs: No Hearing needs: No Vision needs: No Female Reproductive History Menstrual Age of Menarche: 13 Behavioral Health Assessment Weight Management Therapy Therapy Notes Details Subjective: PT has been scheduled for weight-loss surgery for 04/18/25 Recent weight 294lbs PT reports feeling anxious but excited about upcoming surgery. Objective: PT presents for a pre-op f/up visit. discussed functioning and challenges with meal/excercise plan. Worked on readiness for surgery from perspective. Assessment/Response: Mental status: WNL Risk reported/identified: None Assessment & Plan Assessment & Plan (1) Adjustment disorder: Code(s): F43.20 - Adjustment disorder, unspecified Plan PT will return at 1 weeks post-op. She has been answered all questions and have been encourage to follow all instructions pre and post-op. Next alix: after surgery. Telehealth Telehealth Telehealth Platform: [email or web address] Location of provider rendering services: other (Home office. [place], [place]) Location of patient: address on file Patient Identification confirmed using: Name, : Yes Telehealth method: video Patient verbally consented to treatment: Yes Patient verbally consented to billing insurance company: Yes Patient informed of any privacy concerns related to visit: Yes Minutes spent on Phone/Video with Pt.: 55 Coding Level of Care Code Established Pt Tele Psytx >53 mins ([id number]) Patient Type Established Diagnoses Adjustment disorder F43.20 Time Spent (min) 55
== END 2025-03-07 13:13 | disposition home or self-care (01) ==
LOC: HO.HBST 12:15
PROVIDERS: PCP Internal Medicine; Visit Provider Counselor Mental Health
DX: F43.20 Adjustment disorder, unspecified (principal)
CPT/HCPCS: 90837

== ENCOUNTER 2025-04-08 08:15 | Outpatient (AMB) | payer OTHER, SELFPAY ==
--- NOTE | 2025-04-07 22:49 | MHC.OFFVISWM ---
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 DIRECTOR* Human Resources Records Clerk Required: Yes Human Resources Records Clerk Services: Human Resources Records Clerk Present Information Interpreted: clinical only Allergies No Known Allergies Allergy (Verified 04/07/25 23:00) Medication List - Last Reconciled 04/07/25 by Vinnie Leone MD blood pressure test kit-large ([facility] Blood Pressure Monitor kit) As directed cholecalciferol (vitamin D3) 125 mcg PO DAILY ferrous sulfate 325 mg PO DAILY 90 days ondansetron 4 mg PO Q12H pantoprazole 40 mg PO DAILY polyethylene glycol 3350 17 grams PO DAILY sucralfate 10 mL PO BID thiamine HCl (vitamin B1) 100 mg PO DAILY tirzepatide (weight loss) (Zepbound) 10 mg (0.5 mL) subcut QWEEK vitamin A palmitate 3,000 mcg PO DAILY HPI HPI TV Pre Op LSG 04/18/25 *PROJECT DEVELOPMENT DIRECTOR*: Details: Start time: 9.30am, End time: 10am I spent 25 minutes speaking with the patient on the phone plus an additional 5 minutes reviewing and updating records for a total of 30 minutes HPI Comments Details: Overall weight loss: 37.5lbs or 11.4% TBWL Has started the liquid diet with 3 8oz premade Premier shakes and two additional whole-bottle Premier shakes PFS Medical History DJD (degenerative joint disease) GERD (gastroesophageal reflux disease) Sleep apnea Strep pharyngitis Surgical History History of tubal ligation History of cholecystectomy History of Family History Father Diabetes Hypertension Mother Hypertension Diabetes High cholesterol Heart problem Family/Other Mental health disorder Substance use disorder Maternal Aunt Breast cancer, Onset Age: 65 Maternal Uncle Prostate CA Sister Diabetes Brother Diabetes Brother No problems noted. Son No problems noted. Son ADHD Son ADHD Other Throat cancer Social History Housing: Apartment Alcohol intake: never Patient Tobacco Use Status: Current someday Tobacco user Tobacco use type: Cigarette Cigarettes Per Day: 6 e-Cigarette/Vaping Use: Never Used Second Hand Smoke Exposure: No service: No Current occupational status: unemployed Cognitive needs: No Hearing needs: No Vision needs: No Female Reproductive History Menstrual Age of Menarche: 13 Physical Exam Vital Signs: BMI result Body Mass Index 48.5 Telehealth Telehealth Telehealth Platform: Telephone Location of provider rendering services: practice address Location of patient: address on file Patient Identification confirmed using: Name, : Yes Telehealth method: voice only Patient verbally consented to treatment: Yes Patient verbally consented to billing insurance company: Yes Patient informed of any privacy concerns related to visit: Yes Minutes spent on Phone/Video with Pt.: 30 Assessment & Plan Assessment & Plan (1) Morbid obesity: Code(s): E66.01 - Morbid (severe) obesity due to excess calories Category: Medical Plan: 1. Plan for lap sleeve gastrectomy including upper GI endoscopy. All tests has been completed and reviewed and the patient is cleared for the surgery. If diaphragmatic or ventral hernias are present at time of surgery, these will be repaired laparoscopically as well. The surgery does not replace the need to change your lifestlyle which is the cause of the obesity problem. The surgery provides the motivation to try again to change your lifestyle, it reduces the appetite and make the transition to a better lifestyle easier and doubles the amount of weight you would lose compared to doing the lifestyle change without the surgery. You will need to be on a liquid diet with protein shakes for 2 weeks before surgery to maximize weight loss and boost your nutritional status to recover better from surgery and also for the first two weeks after surgery to let the stomach heal before we introduce other foods. After the first 2 weeks we will introduce protein bars and soft foods like scrambled eggs, cottage cheese and yogurt and after the 6th week will introduce meat, fish and cooked vegetables in small amounts. Over time you should be able to eat everything in small amounts. Side effects like nausea, vomiting, heartburn or abdominal pain are not common in the practice unless you are not following in the practice. This operation requires lifetime commitment to following in our practice and communication with me. You will much less weight and experience side effects if you don?t communicate or not following in the practice. Complications are rare and in our practice is about 1/10 of the national average. However, you can develop bleeding that may require transfusion (hasn?t happened for year in the practice), you may from complications (we did not have any deaths in the practice) and infections. Infections are usually a result of breakdown in communication or not understanding or following directions correctly. They are difficult to treat, they can happen during the first 6 weeks, they may require to be in the hospital for weeks or even months, not being able to eat by mouth and you may have drains and surgeries to try and correct the issue. Other risks and complications include possible conversion to an open procedure, leaks, small bowel obstruction, blood clots, cardiac, or pulmonary complications, as senior living complications such as ulcers, insufficient weight loss and vitamin deficiencies. So far she has proven to be an excellent communicator and very compliant with all our directions accomplishing a great weight loss. I believe that she is an excellent candidate and she is ready. 2. Preop prescriptions were provided and explained the purpose of each one. Need to be purchased preop. Start Pantoprazole now as you get it from the pharmacy, 1 pill per day. Sucralfate and Zofran are for after surgery as needed. 3. Bowel prep: please do 7 packets of Miralax mixing each one with a an 8oz glass of water, crystal light, gatorade zero, or propel on 04/16/25 and the same amount on 04/17/25. The Miralax you begin with one packet at a time in 8oz water or crystal light, gatorade zero, or propel as early in the day as you can and you do them back to back until you finish them. Continue the protein shakes during the bowel prep. 4. Needs to purchase 1oz medicine cups . 5. Needs to purchase Children's liquid Tylenol for postop pain control. 6. She needs to stop the Zepbound at latest on 04/11/25. Avoid aspirin, motrin, Advil, Aleve, Ibuprofen, Naproxyn. Tylenol is OK. 7. She needs to purchase the Celebrate multivitamins from the hospital's gift shop. 8. Will do basic preop blood work-up any day between Tuesday04/08/25 and Tuesday04/12/25 fasting for 12 hours and is scheduled to see the Anesthesiologist prior to the day of surgery. 9. Importance of adherence to postop follow-up and recommendations was underscored and she understands that. 10. Continue to avoid food and bars and continue with 3 premade PREMIER protein shakes (8oz each, NOT the whole bottle) at 9am-11am, 12pm-2pm, and 3pm-5pm and TWO whole bottle PREMIER protein shakes at 6pm-8pm and at 9pm-11pm 11. No soups, broths or V8 12. The patient's medical history has been reviewed and they are considered low risk for post op DVT and therefore DVT prophylaxis is not considered necessary. Travel after surgery was reviewed. The patient has not disclosed any travel plans during the first 30 days after surgery and they have been advised that within the first 30 days after surgery any bus, plane, train or car travel over 2 hours in duration is contraindicated due to the possibility of developing blood clots from immobility. Any travel, needs to include periods of ambulation of 10 minutes in duration every 2 hours. Patient was instructed to discuss any plans for travel during this period with their bariatric surgeon. 13. Please take at the day of surgery the following medications: NONE 14. Stop any control pills and don't use them for one month after surgery 15. Absolutely no smoking or vaping, or marijuana until the surgery and for at least the first 4 weeks. Only nicotine patches are allowed. 16. Send me weight measurements on Tuesday04/12/25 and then on 04/18/25, the day of surgery before you go to the hospital. 17. Avoid any steroids by mouth for any reason. Let me know if someone prescribes them to you 18. These instructions supersede anything else you read in the handbook, anything you watched in videos or classes or you were told by any other provider. If there is any conflict, you follow the above instructions and nothing else. Orders: Orders Comprehensive Met. Panel 04/07/25 E66.01 - Morbid (severe) obesity due to excess calories, I10 - Essential (primary) hypertension Prothrombin Time INR 04/07/25 E66.01 - Morbid (severe) obesity due to excess calories, I10 - Essential (primary) hypertension Lipid Panel 04/07/25 E6. - Morbid (severe) obesity due to excess calories, I10 - Essential (primary) hypertension Insulin 04/07/25 - Morbid (severe) obesity due to excess calories, I10 - Essential (primary) hypertension TSH reflex Free T4 04/07/25. - Morbid (severe) obesity due to excess calories, I10 - Essential (primary) hypertension Type and Screen 04/07/25 - Morbid (severe) obesity due to excess calories, I10 - Essential (primary) hypertension Partial Thromboplastin Time 04/07/25 - Morbid (severe) obesity due to excess calories, I10 - Essential (primary) hypertension Complete Blood Count Auto Diff 04/07/25 - Morbid (severe) obesity due to excess calories, I10 - Essential (primary) hypertension C Reactive Protein 04/07/25 - Morbid (severe) obesity due to excess calories, I10 - Essential (primary) hypertension Hemoglobin A1c 04/07/25. - Morbid (severe) obesity due to excess calories, I10 - Essential (primary) hypertension Medications: New ondansetron Only take one every 12 hours as needed if you have nausea 4 mg PO Q12H 20 tabs 0RF nausea and vomiting R11.0 - Nausea pantoprazole 40 mg PO DAILY 90 tabs 0RF K21.9 - Gastro-esophageal reflux disease without esophagitis sucralfate 10 mL PO BID 600 mL 2RF K21.9 - Gastro-esophageal reflux disease without esophagitis polyethylene glycol 3350 Mix each measuring cup with 8oz of water, Crystal light, or Gatorade zero, or Propel and do 7 measuring cups on 04/16/25 and another 7 measuring cups on 04/17/25 17 grams PO DAILY 238 grams 0RF Z01.818 - Encounter for other preprocedural examination
[2025-04-07 23:01] VITALS: BMI 48.5
== END 2025-04-08 11:36 | disposition home or self-care (01) ==
LOC: HO.HBS 08:15
PROVIDERS: PCP Internal Medicine; Visit Provider Surgery
DX: E66.01 Morbid (severe) obesity due to excess calories (principal)
CPT/HCPCS: 99214

== ENCOUNTER 2025-04-18 08:01 | Inpatient (IN) | payer OTHER, SELFPAY ==
[2025-04-10 10:34] VITALS: BMI 48.4
[2025-04-12 09:35] LABS: MANUAL DIFF FLAG NO
[2025-04-12 10:55] LABS: Hemoglobin A1C 90.2442 umol/L; Total Hemoglobin (HGBA1C) 3018.7243 umol/L
[2025-04-12 10:57] LABS: Hematocrit 38.4 % (37.0-47.0); Hemoglobin 11.1 g/dl (12.0-16.0); Imm Gran Abs Auto 0.04 X10*3/uL (0.00-0.03); Imm Gran Pct Auto 0.4 % (0.0-0.4); Lymphocytes Absolute Auto 1.6 X10*3/uL (1.2-4.9); Mean Corpuscular HGB Conc 28.9 g/dl (31.0-35.0); Mean Corpuscular Hemoglobin 21.4 pg (27.0-33.0); Mean Corpuscular Volume 74.1 fL (80.0-98.0); NRBC Abs Auto 0.000 X10*3/uL (0.0-0.012); NRBC Pct Auto 0.0 /100WBC (0.0-0.2); Platelet Count 339 X10*3/uL (160-400); Red Blood Count 5.18 X10*6/uL (4.20-5.50); White Blood Count 9.6 X10*3/uL (4.8-10.8)
[2025-04-12 10:59] LABS: Alanine Aminotransferase 37 U/L (0-31); Albumin Level 4.6 g/dL (3.5-5.0); Alkaline Phosphatase 136 U/L (39-117); Anion Gap 14 (12-20); Aspartate Amino Transferase 27 U/L (5-31); Blood Urea Nitrogen 16 mg/dL (9-16); Calcium 9.0 mg/dL (8.4-10.2); Carbon Dioxide 22 mmol/L (22-29); Chloride 108 mmol/L (96-108); Cholesterol 91 mg/dL (<200); Creatinine Clr Calc Pharmacy 175.1; Estimated Glomerular Filt Rate > 60; HDL Cholesterol 27 mg/dL (>40); Potassium 3.6 mmol/L (3.3-5.1); Sodium 140 mmol/L (135-145); Total Protein 7.3 g/dL (6.5-8.0); Triglycerides 93 mg/dL (<150)
[2025-04-12 11:02] LABS: INTERNATIONAL NORM RATIO 1.0 (0.9-1.1); Prothrombin Time 11.0 SEC (10.9-12.4)
[2025-04-12 11:06] LABS: Partial Thromboplastin Time 23.7 SEC (26.7-34.1)
--- NOTE | 2025-04-17 10:15 | P.CONAN_ITS ---
Documented by User: Stephanie Mclain NP 04/17/25 10:16 HPI - Anesthesia Eval Consult details Narrative: 35yo F for Gastrectomy Sleeve,EGD,possible Diaphragmatic Hernia,possible Ventral Hernia,possible Open Anesthesia Pre-Procedure Meds Is the patient on any of the following meds?: GLP1/DPP4 PMFSH Active Problems Active Problems: All Active Problems Vitamin B1 deficiency (Acute) Physical exam (Acute) Vitamin A deficiency (Acute) Vitamin D deficiency (Acute) Encounter for well woman exam with routine gynecological exam (Acute) Essential hypertension (Acute) Elevated blood pressure reading without diagnosis of hypertension (Acute) Impaired glucose tolerance (Acute) Hospital discharge follow-up (Acute) Cervical cancer screening (Acute) Pre-op evaluation (Acute) Anemia (Acute) Abnormal uterine bleeding (AUB) (Acute) Hirsutism (Acute) Morbid obesity (Acute) ALLYSON (obstructive sleep apnea) (Acute) BMI 50.0-59.9, adult (Acute) Iron deficiency anemia (Acute) Menorrhagia (Acute) Irregular periods (Acute) Encounter to establish care (Acute) Mild anxiety (Acute) Hidradenitis suppurativa (Acute) DJD (degenerative joint disease) (Acute) GERD (gastroesophageal reflux disease) (Acute) Past Medical History Medical History Elevated LFTs Anemia DJD (degenerative joint disease) GERD (gastroesophageal reflux disease) Sleep apnea Strep pharyngitis Family History Family History Father Diabetes Hypertension Mother Hypertension Diabetes High cholesterol Heart problem Family/Other Mental health disorder Substance use disorder Maternal Aunt Breast cancer, Onset Age: 65 Maternal Uncle Prostate CA Sister Diabetes Brother Diabetes Brother No problems noted. Son No problems noted. Son ADHD Son ADHD Other Throat cancer Surgical History Surgical History History of esophagogastroduodenoscopy (EGD) (01/07/25) History of tubal ligation History of cholecystectomy History of History of Problems with Anesthesia: No Social History Social History Household Members: Family Housing: Apartment Are you a primary child care group leader to a significant other at home: Yes (children) Do you presently have visiting nurse or other home services: No Alcohol intake: never Patient Tobacco Use Status: Former Tobacco user Tobacco use type: Cigarette Cigarettes Per Day: 6 Smoked in Last 30 Days: Yes e-Cigarette/Vaping Use: Never Used Second Hand Smoke Exposure: No Use of substances other than those prescribed or required for medical reasons: No Have you been hit, kicked, punched, or otherwise hurt by someone within the past year? If so, by whom?: No Are you DNR?: No Advance Directives: No Advance Directives Information Provided: Yes Advance Directives on File: No Patient : No FDLMP: 03/28/2025 : No Poor oral hygiene: No service: No Current occupational status: unemployed Cognitive needs: No Hearing needs: No Vision needs: No Meds Allergies Allergy/AdvReac Type Severity Reaction Status Date / Time No Known Allergies Allergy Verified 04/07/25 23:00 Exam Height,Weight and Vital Signs: Height 5 ft 5 in Weight 131.995 kg Pertinent Lab Results Pertinent Lab Results: Laboratory Tests 04/12/25 04/12/25 09:18 09:33 WBC 9.6 RBC 5.18 Hgb 11.1 L D Hct 38.4 D MCV 74.1 L MCH 21.4 L MCHC 28.9 L RDW 18.5 H Plt Count 339 MPV Not Reportable Immature Gran % (Auto) 0.4 Neut % (Auto) 73.8 H Lymph % (Auto) 16.3 L Jewell % (Auto) 6.9 Eos % (Auto) 1.8 Baso % (Auto) 0.8 Lymph # (Auto) 1.6 Jewell # (Auto) 0.7 Eos # (Auto) 0.2 Baso # (Auto) 0.1 Abs Immat Gran (auto) 0.04 H Absolute Neuts (auto) 7.1 Absolute Nucleated RBC 0.000 Nucleated RBC % (auto) 0.0 PT 11.0 INR 1.0 APTT 23.7 L Sodium 140 Potassium 3.6 Chloride 108 Carbon Dioxide 22 Anion Gap 14 BUN 16 Creatinine 0.61 Estim Creat Clear Calc 175.1 Estimated GFR > 60 Random Glucose 103 Estimat Average Glucose 94 Hemoglobin A1c % 4.9 Insulin Level 33 H Calcium 9.0 Total Bilirubin 1.1 H AST 27 ALT 37 H Alkaline Phosphatase 136 H C-Reactive Protein 0.81 H Total Protein 7.3 Albumin 4.6 Triglycerides 93 Cholesterol 91 LDL Cholesterol, Calc 46 HDL Cholesterol 27 L TSH 1.08 Blood Type A Positive Antibody Screen NEGATIVE Narrative Narrative: EKG 12/2024 Vent. Rate : 94 BPM Atrial Rate : 94 BPM P-R Int : 144 ms QRS Dur : 84 ms QT Int : 344 ms P-R-T Axes : 14 23 1 degrees QTcB Int : 430 ms Normal sinus rhythm Normal ECG When compared with ECG of 03-Jun-2023 09:08, No significant change was found Assessment and Plan Assessment Anesthesia Assessment: Chart Reviewed Final Anesthetic Review History of Problems with Anesthesia: No Documented by User: Fam Greenfield MD 04/18/25 08:44 HPI - Anesthesia Eval Anesthesia Pre-Procedure Meds If yes to any meds - educate patient: Pt education - increased risk of aspiration and/or euvolemic DKA PMFSH Past Medical History Medical History Elevated LFTs Anemia DJD (degenerative joint disease) GERD (gastroesophageal reflux disease) Sleep apnea Strep pharyngitis Functional capacity: independent ambulation Family History Family History Father Diabetes Hypertension Mother Hypertension Diabetes High cholesterol Heart problem Family/Other Mental health disorder Substance use disorder Maternal Aunt Breast cancer, Onset Age: 65 Maternal Uncle Prostate CA Sister Diabetes Brother Diabetes Brother No problems noted. Son No problems noted. Son ADHD Son ADHD Other Throat cancer Family history of problems with anesthesia: No Surgical History Surgical History History of esophagogastroduodenoscopy (EGD) (01/07/25) History of tubal ligation History of cholecystectomy History of Social History Social History Household Members: Family Housing: Apartment Are you a primary child care group leader to a significant other at home: Yes (children) Do you presently have visiting nurse or other home services: No Alcohol intake: never Patient Tobacco Use Status: Former Tobacco user Tobacco use type: Cigarette Cigarettes Per Day: 6 Smoked in Last 30 Days: Yes e-Cigarette/Vaping Use: Never Used Second Hand Smoke Exposure: No Use of substances other than those prescribed or required for medical reasons: No Have you been hit, kicked, punched, or otherwise hurt by someone within the past year? If so, by whom?: No Are you DNR?: No Advance Directives: No Advance Directives Information Provided: Yes Advance Directives on File: No Patient : No FDLMP: 03/28/2025 : No Poor oral hygiene: No service: No Current occupational status: unemployed Cognitive needs: No Hearing needs: No Vision needs: No Meds Allergies Allergy/AdvReac Type Severity Reaction Status Date / Time No Known Allergies Allergy Verified 04/07/25 23:00 Exam Exam Date and Time: 04/18/2025 Airway Mallampati Class: I TM Dist: >3cm Neck ROM: Full Loose/Missing/Broken Teeth: No Heart: rrr Lungs: cta Assessment and Plan Assessment Anesthesia Assessment: Anesthesia Plan Discussed Final Anesthetic Review Family History of Problems with Anesthesia: No NPO: Yes ASA Class: III Final Preanesthetic Review: No Changes in Pt Med Stat, Meds/Allgs Chart Reviewed, Consent Obtained/Reviewed and Anes Risks/Benef Reviewed Patient Risk: Intermediate Procedure Risk: Intermediate Anesthetic Plan Anesthetic Plan: GA Disposition: Standard PACU
[2025-04-18] VITALS (17 sets, daily range): BP systolic 119–148; BP diastolic 60–92; PULSE 83–106; RESP 12–22; TEMP 36.1–37.2; O2SAT 93–99
[2025-04-18] MEDS: Aprepitant 32 MG/4.4 ML VIAL IVPUSH (08:26)
[2025-04-18] MEDS: Lactated Ringers 1,000 ML 999 ML IV (08:27)
--- NOTE | 2025-04-18 08:28 | PHA.MEDREC ---
Pharmacy Consult ? Medication Reconciliation Pharmacy has completed the medication reconciliation. Reviewed med rec done by nursing, matches claims.
--- NOTE | 2025-04-18 09:52 | MHC.SHP ---
Pre-Procedural Eval Section A - 24 Hr Update-Section A only Date of Service: 04/18/25 The patient is an INPATIENT: Yes The patient has been examined within 24 hours of the surgical procedure. The History & Physical has been completed within 30 days and I have reviewed it.: No Section B - Complete if H&P > 30 days Chief Complaint: Morbid (severe) obesity due to excess calories Relevant Family History (Specify if Yes): No Relevant Social History: None Present Medications: None Medical History: No relevant PMH History of Previous Operations: No relevant previous surgery Allergies: Allergies Allergy/AdvReac Type Severity Reaction Status Date / Time No Known Allergies Allergy Verified 04/07/25 23:00 Review of Systems Sugical H&P ROS: Negative: Constitution, Cardiovascular, Respiratory, Neurological, Psychiatric, Hem-Onc, Allergic/Immunologic, Gastrointestinal, Genitourinary, Musculoskeletal, Integumentary, Endocrine and Eyes/Ears/Nose/Throat Exam Surgical H&P Exam: Normal: HEENT, Normal: Heart, Normal: Lungs, Normal: Extremities, Normal: Abdomen, Normal: Skin and Normal: Neurological Plan Diagnosis/Plan: Unchanged I have reviewed the history and physical and performed a pertinent physical examination on my patient. No changes have occurred unless specified. Time Spent With Patient Time: Total time managing care of this patient today ____ minutes.
--- NOTE | 2025-04-18 09:52 | PM.OP ---
Brief Operative Note Date of Service: 04/18/25 Pre-op diagnosis: Morbid obesity with comorbidities (see below) Post-op diagnosis: same (& congenital abdominal adhesions) Procedure: INITIAL PATIENT BMI ON PRESENTATION AT OUR OFFICE: 54.7 kg/m2 LAST BMI BEFORE SURGERY: 46.7 kg/m2 COMORBIDITIES: GERD, back pain, liver steatosis, anemia ?The patient presented to the Weight Management Program with significant obesity that was negatively impacting the patient's comorbidities as listed above.? The program is a phased program with a special focus on preoperative medical weight management to promote substantial weight loss and prepare the patients for the second phase of the program: bariatric surgery. The patient participated in an intensive weekly lifestyle ?intervention and exercise program during which the patient ?has lost between the initial office visit and the last preoperative visit 48.1 lbs, or 14.1% of initial actual body weight. It was deemed appropriate for the patient to now have bariatric surgery. In light of the current Covid-19 pandemic and the well documented strong association of obesity and increased risk of worse outcomes if infected with Covid-19 (REFERENCES:https://pubmed.ncbi.nlm.nih.gov/91592725/,?https://pubmed.ncbi.nlm.nih.gov/63466103/), any delay in undergoing bariatric surgery may lead to the patient's worsening health condition and increased?risk of more severe Covid-19 disease if infected. In addition a recent?study from [facility] published in [facility] [facility] on 08/31/2021 ([email or web address]) found that, among patients with obesity, substantial weight loss achieved with surgery was associated with improved outcomes of COVID-19 infection. The findings suggest that obesity can be a modifiable risk factor for the severity of COVID-19 infection. In addition, the patient met the BMI-criteria for bariatric surgery based on the BMI on initial presentation. The patient should not be penalized for achieving such weight loss because ?it is not sustainable long-term without surgical intervention and it was achieved in preparation for bariatric surgery ?under my direction and based on my published research ([email or web address] and?[email or web address].soard.org/article/[email or web address]-[email or web address]/pdf) ?that a 10% preoperative weight loss improves long-term weight loss after surgery and reduces perioperative complications.? Insurance carriers such as [facility] have endorsed my recommendations ?and have included in their policies criteria to include a 10% preoperative weight loss requirement. PROCEDURE: Esophago-gastroscopy, laparoscopic lysis of adhesions, laparoscopic sleeve gastrectomy and laparoscopic gastropexy INDICATIONS: This is a 35 year-old female who was electively scheduled for laparoscopic, possibly open sleeve gastrectomy. The risks and complications of the procedure were discussed with the patient in advance, particularly the possibility of ; pulmonary embolism; staple line leak; bleeding; GERD; cardiac, pulmonary, or renal complications; as well as long-term problems such as insufficient weight loss, vitamin deficiency, strictures, or ulcers. The patient understood all the risks, and was in agreement to proceed with surgery. DESCRIPTION OF PROCEDURE: After informed consent was obtained from the patient, the patient was given preoperative antibiotics, and was transferred to the operating room. After successful induction of general anesthesia, pneumatic compression devices were placed on both lower extremities. An upper endoscopy was performed next. The oropharynx and esophagus appeared to be within normal limits. There was no diaphragmatic hernia present. The stomach was entered. Then after all fluid and air were suctioned and the stomach was fully decompressed, the scope was withdrawn and secured in the mid esophagus. The patient was then prepped and draped in the usual sterile manner, and abdominal access was established at the right upper quadrant with the Daniella technique. A 12 mm blunt port was inserted, and the abdomen was insufflated with CO2 to a pressure of 15 mmHg. Under direct visualization, additional ports were placed, specifically two 5 mm Versi-step ports to the left upper quadrant, and a 5 mm Versi-Step port to the right upper quadrant. 1% lidocaine plain was used to infiltrate all port sites as well as all fascia defects. Following that, the patient was placed in a steep reverse Trendelenburg position. An additional 5 mm port was placed to the right flank for the Mediflex retractor that was used to retract the left lobe of the liver. The gastro-esophageal fat pad was opened with the ultrasonic device (Thunderbeat, Olympus) and the anterior esophagus and hiatus were exposed. The angle of His was opened with the ultrasonic device the fundus of the stomach from any diaphragmatic and splenic attachments. I then opened the gastrocolic ligament between the transverse colon and the greater curvature of the stomach with the ultrasonic device to enter the lesser sac and facilitate the ligation of the short gastric vessels. I started at a mid-point along the greater curvature and using the Thunderbeat, all short gastric vessels were divided all the way to the angle of His until the left susie was completely dissected at its entirety. I then divided the gastro-colic ligament distally to a distance of about 3-4 cm proximal to the pylorus. There were extensive congenital adhesions between the pancreas and posterior gastric wall. Those were lysed completely with the ultrasonic device. Adhesiolysis took approximately 45 min to complete.? The stomach was then divided transversely with three Endo ANTONIO-45 purple and three ANTONIO-60 articulating purple loads using the Purplle stapler and loads. Every effort was made that the gastric sleeve had a tubular shape and an even caliber throughout. Once the sleeve resection was completed, the staple line of the gastric sleeve was reinforced with Hemoclips. The resected stomach was retrieved without difficulty from the Daniella port. A gastropexy was then performed in order to prevent postoperative GERD and partial gastric volvulus. Several interrupted 2.0 Surgidac sutures were placed between the sleeve's staple line and the previously divided greater omentum and gastro-colic ligament using the Endo-Stitch device. ?An upper endoscopy was performed. There was no narrowing at the GE junction. The scope was easily advanced all the way to the pylorus which was clearly visualized. There was no narrowing anywhere and the sleeve's caliber was even throughout. The sleeve's staple line was inspected and there was no evidence of ischemia, bleeding or dehiscence. At that point the gastroscope was withdrawn from the patient?s mouth while we were decompressing the bowel and the stomach from any remaining air. I looked into the lesser sac to see how the sleeve was situating and it was situating well. There was no bleeding from the staple line, spleen, or short gastric vessels. The Mediflex retractor was removed, and the undersurface of the liver was inspected and there was no bleeding. The patient was placed in supine position. I closed the fascial defect of the 12 mm port site with a figure of eight #1 Polysorb suture. Then 30cc Ropivacaine plain with 10 mg of Dexamethasone were used to infiltrate the fascial closure as well as all skin incisions. At this point, the abdomen was deflated, all ports were removed under direct vision, and no bleeding was noted from any of the port sites. The skin incisions were irrigated with saline and were closed with 4-0 absorbable monofilament sutures. Steri-Strips and OpSites were used to cover all incisions. The patient was extubated and was transferred in stable condition to the recovery room for further care. I was present and performed all posada parts of the procedure. Ms. Chao was the property management assistant. There were no residents to assist with this case. Avelino Leone MD, PhD, FACS Surgeon: Vinnie Leone MD Anesthesia: GETA, local and other (TAP block) Was an Reed Maker used for this Procedure?: No Reed Maker: Edith Chao Estimated blood loss (mL): 10 IV fluids (mL): 2,500 Urine output (mL): 0 (No Prado to record output) Pathology: other (1) Stomach, 2) Gastro-esophageal fat pad) Condition: stable Disposition: PACU
--- NOTE | 2025-04-18 09:53 | PM.PNGS ---
Subjective Subjective Date of Service: 04/18/25 Interval history: Feels well. Mild incisional pain. She is tolerating phase 1 bariatric diet Physical Exam Vital Signs: Vital Signs: Last Vital Signs Temp 97.9 F 04/18/25 08:11 Pulse 106 H 04/18/25 08:11 Resp 16 04/18/25 08:11 BP 140/87 H 04/18/25 08:11 Pulse Ox 94 04/18/25 08:11 O2 Del Method Room Air 04/18/25 08:11 BMI result Body Mass Index 48.4 GI: Inspection: Yes normal to inspection and Yes incision (clean, dry and intact) Palpation (GI): Soft to palpation Extrem: Right lower extremity: normal to inspection (no calf tenderness) Left lower extremity: normal to inspection (no calf tenderness) Objective Data Active Medications Fentanyl (Fentanyl Citrate/Pf 100 Mcg/2 Ml Vial) 25 mcg IVPUSH Q5M PRN PRN Reason: Pain, Moderate to Severe (Pain Scale 4-10) Stop: 04/18/25 14:44 Hydromorphone HCl (Hydromorphone Hcl 0.5 Mg/0.5 Ml Syringe) 0.25 mg IVPUSH Q5M PRN PRN Reason: Pain, Moderate to Severe (Pain Scale 4-10) Stop: 04/18/25 14:45 Lactated Ringer's (Lr) 1,000 mls @ 100 mls/hr IVCONT .Q10H [facility] Stop: 04/18/25 11:59 Lactated Ringer's (Lr) 1,000 mls @ 999 mls/hr IV .Q1H1M [facility] Stop: 04/18/25 10:15 Last Admin: 04/18/25 08:27 Dose: 999 mls/hr Documented By: EMPERATRIZ Lactated Ringer's (Lr) 500 mls @ 20 mls/hr IVCONT .Q24H [facility] Naloxone HCl (Naloxone Hcl 0.4 Mg/Ml Vial) 0.04 mg IVPUSH Q5M PRN PRN Reason: Excessive sedation or RR < 8 Ondansetron HCl (Ondansetron Hcl 4 Mg/2 Ml Vial) 4 mg IVPUSH ONCE PRN PRN Reason: Nausea and Vomiting Stop: 04/18/25 14:45 Labs 04/12/25 09:33 08/08/25 09:33 Procedures Date of Service Date of Service: 04/18/25 Progress Note: A&P Assessment and plan (1) Morbid obesity: Status: Acute Assessment and Plan: s/p laparoscopic sleeve gastrectomy, lysis of adhesions and gastropexy Doing well Will check am labs and if OK the patient will be discharged home (2) GERD (gastroesophageal reflux disease): Status: Acute (3) ALLYSON (obstructive sleep apnea): Status: Acute (4) Steatosis, liver: Status: Acute (5) Congenital intra-abdominal adhesions: Status: Acute (6) S/P laparoscopic sleeve gastrectomy: Status: Acute Time Spent With Patient Time: Total time managing care of this patient today ____ minutes. Quality Stroke Does the patient have a stroke diagnosis?: No VTE Prior VTE?: No VTE Risk Level:: Surgical - moderate VTE Device Contraindication: N/A - Device Ordered VTE Drug Contraindication: Treatment Not Indicated
--- NOTE | 2025-04-18 12:53 | P.DS_ITS ---
DS: Providers Provider Date of admission: 04/18/25 08:01 Primary care physician: Lani Gilbert MD DS: Diagnosis Discharge Diagnosis (1) Morbid obesity: Status: Acute (2) GERD (gastroesophageal reflux disease): Status: Acute (3) ALLYSON (obstructive sleep apnea): Status: Acute (4) Steatosis, liver: Status: Acute (5) Congenital intra-abdominal adhesions: Status: Acute (6) S/P laparoscopic sleeve gastrectomy: Status: Acute DS: Summary Hospital Course Hospital Course: ADMITTING DIAGNOSIS: morbid obesity, liver steatosis, HTN, anemia, AUB, hirsutism, ALLYSON, iron deficiency anemia, anxiety, hidradenitis, GERD DISCHARGE DIAGNOSIS: same, s/p laparoscopic sleeve gastrectomy and gastropexy PAST SURGICAL HISTORY:?History of tubal ligation, History of cholecystectomy, History of PROCEDURE: upper endoscopy, laparoscopic sleeve gastrectomy and gastropexy DISCHARGE SUMMARY: History of Present Illness: The patient is a?35 year-old woman with a BMI of?48.4 kg/m2 and associated co- morbidities as described above. The patient had extensive work-up, lost?37.9 lbs preoperatively and was electively scheduled for laparoscopic, possible open sleeve gastrectomy and gastropexy. Risks and complications of the surgery were discussed with the patient in advance, particularly the possibility of , pulmonary embolism, anastomotic leak, bleeding, bowel injury, GERD, cardiac, renal or pulmonary complications. The patient understood all the risks and was in agreement with the surgical plan. Hospital Course: The patient underwent an uneventful laparoscopic sleeve gastrectomy with gastropexy on the day of admission. Postoperatively, the patient was transferred to the surgical floor. The patient received IV acetaminophen and IV Dilaudid for pain control. Patient was started on bariatric phase 1 diet POD #0. On postoperative day one, the patient was feeling well without nausea, vomiting, fevers, or tachycardia. The patient had some mild incisional pain and the abdomen was soft.? ? On the morning of postoperative day one, the patient was continued on 1 ounce of water or ice every half hour. During the day, the patient did fairly well, having some incisional pain, but able to ambulate adequately and to tolerate liquids well. Since the patient is doing well, we decided that the patient was ready to be discharged. The patient was given instructions to follow-up in office next week and to call the office for any fever over 101, persistent abdominal pain, nausea, vomiting, GERD, symptoms of DVT such as calf tenderness, or leg swelling, or pulmonary embolism such as chest pain or shortness of breath.? The patient was also instructed to drink 40-60 ounces of liquids per day using the 1-ounce cups. The patient had been given prescriptions for Tylenol for pain, Zofran prn for nausea, and pantoprazole and carafate previously. The patient was encouraged to ambulate and use the incentive spirometer. The patient was allowed to shower, but no baths, and encouraged to stay active at home. All of these instructions were given to the patient personally. All questions were answered and the patient understood all instructions, the instructions were also given to the patient in print. Quality: Safe Use of Opioids Does Pt have an Active Cancer Diagnosis on the Problem List?: No Quality: Stroke Does the patient have a stroke diagnosis?: No Physical Exam Vital Signs: Vital Signs: Last Vital Signs Temp 98.9 F 04/18/25 12:36 Pulse 97 04/18/25 12:45 Resp 16 04/18/25 12:45 BP 140/84 H 04/18/25 12:45 Pulse Ox 94 04/18/25 12:45 O2 Del Method Room Air 04/18/25 12:45 O2 Flow Rate 6 04/18/25 12:36 BMI result Body Mass Index 48.4 DS: Data Data Completed and Pending Pending studies at discharge: Pending at discharge 04/18/25 11:40 Surgical [PTH] Routine Discharge Plan Discharge Referrals: Lani Kothari MD [Primary Care Provider, Internal Medicine] - 1 Week Discharge Medications: No Action ferrous sulfate 325 mg (65 mg iron) tablet 325 mg PO DAILY 90 Days Qty: 90 1RF (DME) blood pressure test kit-large [[facility]ocate Blood Pressure Monitr] Kit See Rx Instructions .Route Qty: 1 0RF Rx Instructions: As directed vitamin A palmitate 3,000 mcg (10,000 unit) tablet 3,000 mcg PO DAILY Qty: 90 0RF thiamine HCl (vitamin B1) 100 mg tablet 100 mg PO DAILY Qty: 90 0RF Zepbound 10 mg/0.5 mL pen injector 10 mg subcut QWEEK Qty: 2 0RF cholecalciferol (vitamin D3) 125 mcg (5,000 unit) capsule 125 mcg PO DAILY Qty: 90 0RF sucralfate 100 mg/mL suspension 10 ml PO BID Qty: 600 2RF pantoprazole 40 mg tablet,delayed release (DR/EC) 40 mg PO DAILY Qty: 90 0RF polyethylene glycol 3350 17 gram/dose powder 17 g PO DAILY Qty: 238 0RF Rx Instructions: Mix each measuring cup with 8oz of water, Crystal light, or Gatorade zero, or Propel and do 7 measuring cups on 04/16/25 and another 7 measuring cups on 04/17/25 ondansetron 4 mg tablet,disintegrating 4 mg PO Q12H Qty: 20 0RF Rx Instructions: Only take one every 12 hours as needed if you have nausea Print Language: Portuguese
[2025-04-18 14:26] LABS: Hematocrit 37.5 % (37.0-47.0); Hemoglobin 10.9 g/dl (12.0-16.0)
[2025-04-18 14:34] LABS: Anion Gap 17 (12-20); Blood Urea Nitrogen 10 mg/dL (9-16); Calcium 8.5 mg/dL (8.4-10.2); Carbon Dioxide 14 mmol/L (22-29); Chloride 111 mmol/L (96-108); Creatinine Clr Calc Pharmacy 172.2; Estimated Glomerular Filt Rate > 60; Potassium 4.1 mmol/L (3.3-5.1); Sodium 138 mmol/L (135-145)
[2025-04-18] MEDS: Lactated Ringers 1,000 ML 100 ML IVCONT (14:54)
[2025-04-19] MEDS: Lactated Ringers 1,000 ML 100 ML IVCONT (01:00)
[2025-04-19 03:00] VITALS: BP 116/57; PULSE 81; RESP 16; TEMP 36.3; O2SAT 95
[2025-04-19 06:40] LABS: Hematocrit 33.9 % (37.0-47.0); Hemoglobin 10.0 g/dl (12.0-16.0); Imm Gran Abs Auto 0.09 X10*3/uL (0.00-0.03); Imm Gran Pct Auto 0.7 % (0.0-0.4); Lymphocytes Absolute Auto 0.8 X10*3/uL (1.2-4.9); Mean Corpuscular HGB Conc 29.5 g/dl (31.0-35.0); Mean Corpuscular Hemoglobin 21.9 pg (27.0-33.0); Mean Corpuscular Volume 74.3 fL (80.0-98.0); NRBC Abs Auto 0.000 X10*3/uL (0.0-0.012); NRBC Pct Auto 0.0 /100WBC (0.0-0.2); Red Blood Count 4.56 X10*6/uL (4.20-5.50)
[2025-04-19 06:41] LABS: Platelet Count 334 X10*3/uL (160-400); White Blood Count 12.4 X10*3/uL (4.8-10.8)
[2025-04-19 06:56] LABS: Anion Gap 15 (12-20); Blood Urea Nitrogen 5 mg/dL (9-16); Calcium 9.2 mg/dL (8.4-10.2); Carbon Dioxide 18 mmol/L (22-29); Chloride 109 mmol/L (96-108); Creatinine Clr Calc Pharmacy 201.5; Estimated Glomerular Filt Rate > 60; Potassium 4.4 mmol/L (3.3-5.1); Sodium 138 mmol/L (135-145)
[2025-04-19 07:29] VITALS: BP 109/62; PULSE 87; RESP 16; TEMP 36.2; O2SAT 95
--- NOTE | 2025-04-19 08:07 | HO.POSTANES ---
Post Anesthesia Evaluation Post Anesthesia Evaluation Date of Service: 04/19/25 Vital Signs: Vital Signs Temp Pulse Resp BP Pulse Ox O2 Del Method 04/19/25 07:29 97.2 F 87 16 109/62 95 Room Air, CPAP 04/19/25 03:00 97.4 F 81 16 116/57 L 95 Room Air 04/18/25 23:34 22 H 04/18/25 23:00 97.2 F 97 18 126/60 94 CPAP Anesthesia: General Mental Status: Awake Pain Control: Satisfactory Nausea/Vomiting: None Hydration: Adequate Anesthesia-Related Issues: No Anes. Related Issues
--- NOTE | 2025-04-19 08:15 | P.DS_ITS ---
DS: Providers Provider Date of Service: 04/19/25 Date of admission: 04/18/25 08:01 Date of discharge: 04/19/25 Primary care physician: Lani Gilbert MD DS: Diagnosis Discharge Diagnosis (1) Morbid obesity: Status: Acute (2) GERD (gastroesophageal reflux disease): Status: Acute (3) ALLYSON (obstructive sleep apnea): Status: Acute (4) Steatosis, liver: Status: Acute (5) Congenital intra-abdominal adhesions: Status: Acute (6) S/P laparoscopic sleeve gastrectomy: Status: Acute DS: Summary Hospital Course Hospital Course: ADMITTING DIAGNOSIS: morbid obesity, liver steatosis, HTN, anemia, AUB, hirsutism, ALLYSON, iron deficiency anemia, anxiety, hidradenitis, GERD DISCHARGE DIAGNOSIS: same, s/p laparoscopic sleeve gastrectomy and gastropexy PAST SURGICAL HISTORY:?History of tubal ligation, History of cholecystectomy, History of PROCEDURE: upper endoscopy, laparoscopic sleeve gastrectomy and gastropexy DISCHARGE SUMMARY: History of Present Illness: The patient is a?35 year-old woman with a BMI of?48.4 kg/m2 and associated co- morbidities as described above. The patient had extensive work-up, lost?37.9 lbs preoperatively and was electively scheduled for laparoscopic, possible open sleeve gastrectomy and gastropexy. Risks and complications of the surgery were discussed with the patient in advance, particularly the possibility of , pulmonary embolism, anastomotic leak, bleeding, bowel injury, GERD, cardiac, renal or pulmonary complications. The patient understood all the risks and was in agreement with the surgical plan. Hospital Course: The patient underwent an uneventful laparoscopic sleeve gastrectomy with gastropexy on the day of admission. Postoperatively, the patient was transferred to the surgical floor. The patient received IV acetaminophen and IV Dilaudid for pain control. Patient was started on bariatric phase 1 diet POD #0. On postoperative day one, the patient was feeling well without nausea, vomiting, fevers, or tachycardia. The patient had some mild incisional pain and the abdomen was soft.? ? On the morning of postoperative day one, the patient was continued on 1 ounce of water or ice every half hour. During the day, the patient did fairly well, having some incisional pain, but able to ambulate adequately and to tolerate liquids well. Since the patient is doing well, we decided that the patient was ready to be discharged. The patient was given instructions to follow-up in office next week and to call the office for any fever over 101, persistent abdominal pain, nausea, vomiting, GERD, symptoms of DVT such as calf tenderness, or leg swelling, or pulmonary embolism such as chest pain or shortness of breath.? The patient was also instructed to drink 40-60 ounces of liquids per day using the 1-ounce cups. The patient had been given prescriptions for Tylenol for pain, Zofran prn for nausea, and pantoprazole and carafate previously. The patient was encouraged to ambulate and use the incentive spirometer. The patient was allowed to shower, but no baths, and encouraged to stay active at home. All of these instructions were given to the patient personally. All questions were answered and the patient understood all instructions, the instructions were also given to the patient in print. Time Attestation Discharge Coordination Time (in mins): 25 Quality: Safe Use of Opioids Does Pt have an Active Cancer Diagnosis on the Problem List?: No Quality: Stroke Does the patient have a stroke diagnosis?: No Physical Exam Vital Signs: Vital Signs: Last Vital Signs Temp 97.2 F 04/19/25 07:29 Pulse 87 04/19/25 07:29 Resp 16 04/19/25 07:29 BP 109/62 04/19/25 07:29 Pulse Ox 95 04/19/25 07:29 O2 Del Method Room Air, CPAP 04/19/25 07:29 O2 Flow Rate 2 04/18/25 13:50 BMI result Body Mass Index 48.4 DS: Data Data Completed and Pending Pending studies at discharge: Pending at discharge 04/18/25 11:40 Surgical [PTH] Routine Labs on day of discharge: Laboratory Results - last 24 hr 04/18/25 04/19/25 14:10 05:22 WBC 12.4 H RBC 4.56 Hgb 10.9 L 10.0 L Hct 37.5 33.9 L MCV 74.3 L MCH 21.9 L MCHC 29.5 L RDW 18.3 H Plt Count 334 MPV Not Reportable Immature Gran % (Auto) 0.7 H Neut % (Auto) 86.5 H Lymph % (Auto) 6.1 L [place] % (Auto) 6.5 Eos % (Auto) 0.0 Baso % (Auto) 0.2 Lymph # (Auto) 0.8 L [place] # (Auto) 0.8 Eos # (Auto) 0.0 Baso # (Auto) 0.0 Abs Immat Gran (auto) 0.09 H Absolute Neuts (auto) 10.7 H Absolute Nucleated RBC 0.000 Nucleated RBC % (auto) 0.0 Sodium 138 138 Potassium 4.1 4.4 Chloride 111 H 109 H Carbon Dioxide 14 L 18 L Anion Gap 17 15 BUN 10 5 L Creatinine 0.62 0.53 Estim Creat Clear Calc 172.2 201.5 Estimated GFR > 60 > 60 Random Glucose 116 H 106 Calcium 8.5 9.2 D Discharge Plan Discharge Anticipated Discharge Date/Time: 04/19/25 10:00 Patient Disposition: Home, Self-Care Discharge Diagnosis: s/p laparoscopic sleeve gastrectomy with gastropexy Referrals: Lani Kothari MD [Primary Care Provider, Internal Medicine] - 1 Week Discharge Medications: Continued sucralfate 100 mg/mL suspension 10 ml PO BID Qty: 600 2RF pantoprazole 40 mg tablet,delayed release (DR/EC) 40 mg PO DAILY Qty: 90 0RF ondansetron 4 mg tablet,disintegrating 4 mg PO Q12H Qty: 20 0RF Rx Instructions: Only take one every 12 hours as needed if you have nausea Discontinued ferrous sulfate 325 mg (65 mg iron) tablet 325 mg PO DAILY 90 Days Qty: 90 1RF vitamin A palmitate 3,000 mcg (10,000 unit) tablet 3,000 mcg PO DAILY Qty: 90 0RF thiamine HCl (vitamin B1) 100 mg tablet 100 mg PO DAILY Qty: 90 0RF Zepbound 10 mg/0.5 mL pen injector 10 mg subcut QWEEK Qty: 2 0RF cholecalciferol (vitamin D3) 125 mcg (5,000 unit) capsule 125 mcg PO DAILY Qty: 90 0RF polyethylene glycol 3350 17 gram/dose powder 17 g PO DAILY Qty: 238 0RF Rx Instructions: Mix each measuring cup with 8oz of water, Crystal light, or Gatorade zero, or Propel and do 7 measuring cups on 04/16/25 and another 7 measuring cups on 04/17/25 No Action (DME) blood pressure test kit-large [Advocate Blood Pressure Monitr] Kit See Rx Instructions .Route Qty: 1 0RF Rx Instructions: As directed Discharge Orders: Discharge Order (Routine); Ordered 04/19/25 Ordered By: Riaz French Activity on Discharge: No heavy lifting Stand Alone Forms: Patient Portal Discharge page Print Language: Slovenian Care Plan Goals: weight loss Health Concerns: morbid obesity Plan of Treatment: No tub baths, sex or returning to work until discussed at first post op appointment. No alcohol, tobacco or illegal drug use. Continue to use incentive spirometer hourly while awake. Walk in home for 5- 10 minutes every 2 hours during the first week. Wear abdominal binder with activity. Follow all meal plan instructions from your bariatric surgeon. Review bariatric handbook and call with any questions. Discharge Instructions 1. Please call your doctor or come back to the emergency room should any new symptoms arise. 2. Activity: abstain from alcohol,? limited stair climbing, no bending, no driving, no exercise, no illicit substances, no lifting, no sex, no tub bath, no work. 4. Diet: follow your bariatric surgeon's recommendations for advancing diet. 5. Dressing Change/Wound Care: Your incisions are covered with waterproof dressings. You can shower with these and pat dry. Do not rub over dressings or incisions. If the area is tender, you may apply an ice pack for short intervals (no more than 20 minutes on, followed by at least 20 minutes off). Do not apply heat. Do not use creams, lotions, or topical antibiotics unless instructed to do so by your surgeon. 6. Call your doctor if: - Your temperature exceeds 101.5 F - You experience excessive pain or swelling - You have an unexpected reaction to medication - You have excessive bleeding - You experience continued vomiting/nausea - Your incision begins to separate - Your incision shows signs of infection such as increased redness, swelling, excessive pain, heat, or drainage (light blood or clear fluid is normal) General instructions: No lifting greater than 10 lbs for the next 6 weeks[address] driving within 24 hours of taking narcotic pain medications. If you do not move your bowels in the next 2 days, please take milk of magnesia over the counter. Please follow the post op diet and do not advance your diet until instructed by your surgeon or until you are seen in the office in about 1 week. Please walk around your home every hour or two to prevent blood clots from forming in your legs. You do not need to wake from sleeping to walk. Please sleep in a bed or couch to prevent kinking at the hips and knees. Please take your incentive spirometer (your lung painting machine operator) home with you and use it for the next few days to prevent pneumonias. You may shower; no hot tubs, baths or swimming pools. Please make sure you are consuming 40-60 ounces of total fluids per day. Avoid all carbonation. Please call the office with any questions or concerns such as increasing abdominal pain, fever, chills, shortness of breath, chest pain, leg pain or swelling, or redness or drainage from your incisions. Do not hesitate to contact the office with any questions at . The patient's medical history has been reviewed and they are considered low risk for post op DVT and therefore DVT prophylaxis is not considered necessary. Travel after surgery was reviewed. The patient has not disclosed any travel plans during the first 30 days after surgery and they have been advised that within the first 30 days after surgery any bus, plane, train or car travel over 2 hours in duration is contraindicated due to the possibility of developing blood clots from immobility. Any travel, needs to include periods of ambulation of 10 minutes in duration every 2 hours.? The patient was instructed to discuss any plans for travel during this period with their bariatric surgeon. Assessment: s/p laparoscopic sleeve gastrectomy with gastropexy
[2025-04-19 09:10] VITALS: BP 132/80; PULSE 78; RESP 16; TEMP 36.3; O2SAT 97
--- NOTE | 2025-04-19 09:55 | MHC.CM.PN ---
DP: PT LEFT UNIT WITHOUT BEING SEEN BY CM.
== END 2025-04-19 09:35 | disposition home or self-care (01) | DRG 403 ==
LOC: HO.SSSA 13:00 → HO.S3 14:18
PROVIDERS: Physician Assistant Surgical; Admitting Provider Surgery; PCP Internal Medicine; Visit Provider Surgery
PROC: 0DB64Z3 Excision of Stomach, Percutaneous Endoscopic Approach, Vertical (ICD-10-PCS; CPT 43845; principal; 2025-04-18 10:20)
DX: E66.01 Morbid (severe) obesity due to excess calories (principal); K76.0 Fatty (change of) liver, not elsewhere classified; Q43.3 Congenital malformations of intestinal fixation; D64.9 Anemia, unspecified; K21.9 Gastro-esophageal reflux disease without esophagitis; G47.33 Obstructive sleep apnea (adult) (pediatric); M54.9 Dorsalgia, unspecified; K66.0 Peritoneal adhesions (postprocedural) (postinfection); Z68.42 Body mass index [BMI] 45.0-49.9, adult; Z87.891 Personal history of nicotine dependence; Z79.899 Other long term (current) drug therapy
CPT/HCPCS: 36415; 80048; 80053; 80061; 83036; 83525; 84443; 85014; 85018; 85025; 85610; 85730; 86140; 86850; 86900; 86901; 88304; 88305; 88307; 88342; 94660; A4649; C9145; J0131; J0360; J0690; J1100; J1171; J1308; J1805; J2003; J2250; J2405; J2704; J2795; J3010; J7120

== ENCOUNTER → 2025-04-18 08:01 | Outpatient (BNV) | payer OTHER, SELFPAY | PROVIDERS: Admitting Provider Surgery; PCP Internal Medicine; Visit Provider Surgery | DX: E66.01 Morbid (severe) obesity due to excess calories (principal); Z68.42 Body mass index [BMI] 45.0-49.9, adult; Q43.3 Congenital malformations of intestinal fixation; G47.33 Obstructive sleep apnea (adult) (pediatric); K21.9 Gastro-esophageal reflux disease without esophagitis; K76.0 Fatty (change of) liver, not elsewhere classified; Z98.84 Bariatric surgery status | CPT/HCPCS: 99238 ==

== ENCOUNTER 2025-04-25 10:25 | Outpatient (AMB) | payer OTHER, SELFPAY ==
--- NOTE | 2025-04-25 10:36 | A.OFFVIS_ITS ---
VS Expanded 04/25/25 10:58 BP 155/78 H Blood Pressure Location Rt brachial Blood Pressure Position Sitting Pulse 97 Pulse Source Pulse Oximeter Temp 98 F Temperature Source Temporal Artery Scan Pulse Oximetry 98 Oxygen Delivery Method Room Air Height 5 ft 5 in Weight 260 lb 12.8 oz BMI 43.4 Body Fat % 45.7 Body Fat Mass 119.0 Fat Free Mass 141.6 Visceral Fat Rating 13.0 Body Water % 38.9 Body Water Mass 101.4 Muscle Mass/Score 134.4 Basal Metabolic Rate/Score 2,013 Intake Visit Reasons: OV PO LSG 04/18/2025 Allergies No Known Allergies Allergy (Verified 04/25/25 10:59) HPI Comments Details: This?a?35?yo female who is s/p LSG without hiatal hernia repair on?04/18/2025. Presents for 1 week post op visit. Weight today is 260.8 pounds, with a BMI of 43.4. There has been a 68.1 pound weight loss,(initial weight 328.9 pounds) since starting the program on 12/19/2024 reflecting a 20.7 % total body weight loss and a weight loss of 29.3 pounds since surgery (operative weight 290.1 pounds) reflecting a 10 % TBWL since surgery. No complaints of nausea, emesis, abdominal pain or reflux. Positive bowel movement Present meal plan includes: Protein 2.0 water, 8 oz at 10-12, 2-4, 6-8 Drinking about 40 oz of fluids per day [facility] Medical History (Updated 04/20/25 @ 00:03 by Deann Freitas) Physical exam Encounter for well woman exam with routine gynecological exam Hospital discharge follow-up Cervical cancer screening Pre-op evaluation BMI 50.0-59.9, adult Elevated LFTs Anemia DJD (degenerative joint disease) GERD (gastroesophageal reflux disease) Sleep apnea Strep pharyngitis Surgical History (Updated 04/25/25 @ 11:00 by Sahra Clayton CMA) S/P gastric sleeve procedure History of esophagogastroduodenoscopy (EGD) (01/07/25) History of tubal ligation History of cholecystectomy History of Family History Father Diabetes Hypertension Mother Hypertension Diabetes High cholesterol Heart problem Family/Other Mental health disorder Substance use disorder Maternal Aunt Breast cancer, Onset Age: 65 Maternal Uncle Prostate CA Sister Diabetes Brother Diabetes Brother No problems noted. Son No problems noted. Son ADHD Son ADHD Other Throat cancer Social History Household Members: Spouse, Family and Children Housing: Apartment Are you a primary geriatric personal care aide to a significant other at home: Yes (children) Do you presently have visiting nurse or other home services: No 75 years or older and lives alone: No Alcohol intake: never Patient Tobacco Use Status: Former Tobacco user Tobacco use type: Cigarette Cigarettes Per Day: 6 e-Cigarette/Vaping Use: Never Used Second Hand Smoke Exposure: No service: No Current occupational status: unemployed Cognitive needs: No Hearing needs: No Vision needs: No Female Reproductive History Menstrual Age of Menarche: 13 Physical Exam GI Inspection: Yes incision (Clean, dry, intact.) Assessment & Plan Assessment & Plan (1) S/P laparoscopic sleeve gastrectomy: Code(s): Z98.84 - Bariatric surgery status Category: Surgical Plan: POD 7 s/p LSG on 04/18/[address] Leone Weight loss prior to surgery was 30.8 pounds or 11.7 % TBWL. Original weight on 12/19/2024 was 328.9 pounds and op weight was 290.1 pounds. Be sure to text Dr Leone exactly 1 week after surgery your weight from your home scale so he can adjust your meal plan. Continue meal plan until f/u w Edith May shower, no submersion in bath for another week Continue abdominal binder with activity and exercise for the next 2 weeks. Exercise prior to surgery was treadmill at [place] and may resume No abdominal exercises for 6 weeks post operatively Will be emailed link to post op video for review Reminded of the pace of drinking, 2 mL per minute, 1 oz/15 min.
[2025-04-25 10:58] VITALS: BP 155/78; PULSE 97; TEMP 36.6; O2SAT 98; BMI 43.4
== END 2025-04-25 11:16 | disposition home or self-care (01) ==
LOC: HO.HBS 10:26
PROVIDERS: PCP Internal Medicine; Visit Provider Physician Assistant Surgical
DX: Z98.84 Bariatric surgery status (principal)
CPT/HCPCS: 99024

== ENCOUNTER → 2025-04-25 10:25 | Outpatient (BNVA) | payer OTHER, SELFPAY | PROVIDERS: PCP Internal Medicine; Visit Provider Physician Assistant Surgical | DX: E66.9 Obesity, unspecified (principal); Z68.41 Body mass index [BMI] 40.0-44.9, adult; Z90.49 Acquired absence of other specified parts of digestive tract; Z90.3 Acquired absence of stomach [part of] | CPT/HCPCS: 99212 ==

== ENCOUNTER 2025-04-30 13:45 | Outpatient (AMB) | payer OTHER, SELFPAY ==
--- NOTE | 2025-04-30 13:40 | A.OFFWM_ITS ---
Intake Intake Visit Reasons: TV PO LSG 04/18/25 *TBD* Allergies No Known Allergies Allergy (Verified 06/25/25 13:18) [facility] Medical History (Updated 06/25/25 @ 14:01 by CLEMENT Schaefer) Physical exam Encounter for well woman exam with routine gynecological exam Hospital discharge follow-up Cervical cancer screening Pre-op evaluation BMI 50.0-59.9, adult Elevated LFTs Anemia DJD (degenerative joint disease) GERD (gastroesophageal reflux disease) Sleep apnea Strep pharyngitis Surgical History S/P gastric sleeve procedure History of esophagogastroduodenoscopy (EGD) (01/07/25) History of tubal ligation History of cholecystectomy History of Family History Father Diabetes Hypertension Mother Hypertension Diabetes High cholesterol Heart problem Family/Other Mental health disorder Substance use disorder Maternal Aunt Breast cancer, Onset Age: 65 Maternal Uncle Prostate CA Sister Diabetes Brother Diabetes Brother No problems noted. Son No problems noted. Son ADHD Son ADHD Other Throat cancer Social History Household Members: Spouse, Family and Children Housing: Apartment Are you a primary healthcare corporate account director to a significant other at home: Yes (children) Do you presently have visiting nurse or other home services: No 75 years or older and lives alone: No Alcohol intake: never Patient Tobacco Use Status: Former Tobacco user Tobacco use type: Cigarette Cigarettes Per Day: 6 e-Cigarette/Vaping Use: Never Used Second Hand Smoke Exposure: No service: No Current occupational status: unemployed Cognitive needs: No Hearing needs: No Vision needs: No Female Reproductive History Menstrual Age of Menarche: 13 Behavioral Health Assessment Weight Management Therapy Therapy Notes Details Subjective: Patient underwent weight loss surgery on 04/18/2025. Preoperative weight was 274 lbs; most recent weight as of 04/25/2025 is 260 lbs. Patient denies pain or any difficulties with recovery and reports good tolerance of the liquid diet. Mood is stable. Support system includes boyfriend, mother, and children. Patient reports no physical hunger but continues to have thoughts about food. Objective: The patient presents for a behavioral health post-operative follow-up visit. A guided emotional check-in was conducted to assess her current functioning, recovery, mood, and emotional state. Psychoeducation was provided on the emotional and psychological adjustments commonly experienced after bariatric surgery. We also focused on distinguishing between hunger and cravings or food thoughts, exploring possible reasons for these experiences, and strategies to work on her mindset. Emphasis was placed on becoming mindful of her physical and mental needs during these times while staying on track. The PHQ-9 was administered to screen for symptoms of depression. The importance of adhering to the Weight Management Program (WMP) providers' instructions was emphasized, including the pace of drinking and following the meal and exercise plan. Tips and recommendations for long-term success were also discussed. Program resources were provided, and the patient was invited to join our Facebook group to stay informed about ongoing events and activities. Assessment/Response: * Mental status: WNL * Risk reported/identified: None Food/Weight/Diet Expectations of change PT started the program on 12/19/2024 at 328Lbs and the initial goal is to lose 10% of her weight before surgery, which is about 33lbs. Ultimate weight goal: 295lbs before surgery. She was 308Lbs on 02/01/25. PT's target weight: Under 200Lbs - PT is implementing the following: Current meal plan: 3 shakes (Premier Protein) - Exercise plan: Walking. Scale: yes Communication with provider: . Questionnaires PHQ-9 Over the last 2 weeks, how often have you been bothered by any of the following problems? 1. Little interest or pleasure in doing things: not at all 2. Feeling down, depressed, or hopeless: not at all 3. Trouble falling or staying asleep, or sleeping too much: not at all 4. Feeling tired or having little energy: not at all 5. Poor appetite or overeating: not at all 6. Feeling bad about yourself - or that you are a failure or have let yourself or your family down: not at all 7. Trouble concentrating on things, such as reading the newspaper or watching television: not at all 8. Moving or speaking so slowly that other people could have noticed. Or the opposite - being so fidgety or restless that you have been moving around a lot more than usual: not at all 9. Thoughts that you would be better off or of hurting yourself in some way: not at all Total score: 0 Depression Screening Interpretation: Negative Depression Screening Done: Yes 93807 - PHQ-9 Billing: Yes Source: Developed by Drs. Gerson Palencia, Inés Horne, Bhavin Mueller and colleagues, with an educational za from [employer]. Assessment & Plan Assessment & Plan (1) Adjustment disorder: Code(s): F43.20 - Adjustment disorder, unspecified (2) Status post bariatric surgery: Code(s): Z98.84 - Bariatric surgery status Plan We will continue meeting on a regular basis for post-op support. Telehealth Telehealth Telehealth Platform: [facility] Location of provider rendering services: other (Home office. [place], [place]) Location of patient: address on file Patient Identification confirmed using: Name, : Yes Telehealth method: video Patient verbally consented to treatment: Yes Patient verbally consented to billing insurance company: Yes Patient informed of any privacy concerns related to visit: Yes Minutes spent on Phone/Video with Pt.: 40 Coding Level of Care Code Established Pt Tele Psytx 45 mins (22132) Patient Type Established Diagnoses Adjustment disorder F43.20 Status post bariatric surgery Z98.84 Additional Codes PHQ-9 - 15843 - PHQ-9 Billing: Yes ([id number]) Time Spent (min) 40
== END 2025-04-30 14:27 | disposition home or self-care (01) ==
LOC: HO.HBST 13:45
PROVIDERS: PCP Internal Medicine; Visit Provider Counselor Mental Health
DX: F43.20 Adjustment disorder, unspecified (principal); Z98.84 Bariatric surgery status
CPT/HCPCS: 90834

== ENCOUNTER 2025-05-17 10:49 | Outpatient (AMB) | payer OTHER, SELFPAY ==
--- NOTE | 2025-05-17 10:11 | MHC.OFFVISWM ---
VS Expanded 05/17/25 10:15 Height 5 ft 5 in Weight 248 lb BMI 41.3 Intake Visit Reasons: TV PO LSG 04/18/2025 Intake Note: [id number] Supreme Court Justice Required: Yes Supreme Court Justice Name: Mil Calixto [id number] Information Interpreted: clinical only Allergies No Known Allergies Allergy (Verified 04/25/25 10:59) Medication List - Last Reconciled 05/17/25 by CLEMENT Schaefer blood pressure test kit-large (Advocate Blood Pressure Monitor kit) As directed iron,carbonyl-vitamin C 65 mg iron- 125 mg (Vitron-C) 1 tab PO DAILY ondansetron 4 mg PO Q12H pantoprazole 40 mg PO DAILY sucralfate 10 mL PO BID HPI Comments Details: This?is a?35?yo F who is s/p LSG 04/18/2025. Presents for 1mo post op visit. Weight at last visit on 04/25/2025 was 260.8 pounds. Weight today is 248 pounds, representing a 12.8 pound weight loss with a BMI today of 41.3.? No complaints of nausea, emesis, abdominal pain or reflux, or constipation. Present meal plan includes: shakes- Premier premade but she is tired of this brand, has tried many flavors bar 4 forks of egg for dinner she has asked Dr Roldan for a powder that is more fruit flavored Exercise routine includes: walker (treadmill?) - had to miss a few days this week due to baby being sick [facility] Medical History (Updated 04/20/25 @ 00:03 by Deann Freitas) Physical exam Encounter for well woman exam with routine gynecological exam Hospital discharge follow-up Cervical cancer screening Pre-op evaluation BMI 50.0-59.9, adult Elevated LFTs Anemia DJD (degenerative joint disease) GERD (gastroesophageal reflux disease) Sleep apnea Strep pharyngitis Surgical History (Updated 04/25/25 @ 11:00 by Sahra Clayton CMA) S/P gastric sleeve procedure History of esophagogastroduodenoscopy (EGD) (01/07/25) History of tubal ligation History of cholecystectomy History of Family History Father Diabetes Hypertension Mother Hypertension Diabetes High cholesterol Heart problem Family/Other Mental health disorder Substance use disorder Maternal Aunt Breast cancer, Onset Age: 65 Maternal Uncle Prostate CA Sister Diabetes Brother Diabetes Brother No problems noted. Son No problems noted. Son ADHD Son ADHD Other Throat cancer Social History Household Members: Spouse, Family and Children Housing: Apartment Are you a primary healthcare economics manager to a significant other at home: Yes (children) Do you presently have visiting nurse or other home services: No 75 years or older and lives alone: No Alcohol intake: never Patient Tobacco Use Status: Former Tobacco user Tobacco use type: Cigarette Cigarettes Per Day: 6 e-Cigarette/Vaping Use: Never Used Second Hand Smoke Exposure: No service: No Current occupational status: unemployed Cognitive needs: No Hearing needs: No Vision needs: No Female Reproductive History Menstrual Age of Menarche: 13 Assessment & Plan Assessment & Plan (1) S/P laparoscopic sleeve gastrectomy: Code(s): Z98.84 - Bariatric surgery status Category: Surgical (2) Morbid obesity: Code(s): E66.01 - Morbid (severe) obesity due to excess calories Category: Medical Plan Pt wants to change protein powders. I recommended she download [employer] alix and follow a plan from the alix. She can use Isopure powder for her protein shakes if she prefers. I asked her to send me a copy of her plan once she creates it in the alix. She can text me instead weekly with measurements. She will work on increasing exercise to goal of 2000 derik burned per week. Reviewed heavy lifting restriction until 6w postop. RTC 1mo phone call visit 30min.
[2025-05-17 10:15] VITALS: BMI 41.3
== END 2025-05-17 10:49 | disposition home or self-care (01) ==
LOC: HO.HBS 10:49
PROVIDERS: PCP Internal Medicine; Visit Provider Physician Assistant Surgical
DX: E66.01 Morbid (severe) obesity due to excess calories (principal); Z68.41 Body mass index [BMI] 40.0-44.9, adult; Z90.3 Acquired absence of stomach [part of]; Z98.84 Bariatric surgery status
CPT/HCPCS: 99024

== ENCOUNTER → 2025-05-17 10:49 | Outpatient (BNVA) | payer OTHER, SELFPAY | PROVIDERS: PCP Internal Medicine; Visit Provider Physician Assistant Surgical | DX: Z98.84 Bariatric surgery status (principal); E66.01 Morbid (severe) obesity due to excess calories | CPT/HCPCS: 99212 ==

== ENCOUNTER 2025-05-21 13:30 | Outpatient (AMB) | payer OTHER, SELFPAY ==
--- NOTE | 2025-05-21 13:30 | MHC.WMTHER ---
Intake Intake Visit Reasons: TV PO LSG 04/18/25 Allergies No Known Allergies Allergy (Verified 04/25/25 10:59) [facility] Medical History (Updated 04/20/25 @ 00:03 by Deann Freitas) Physical exam Encounter for well woman exam with routine gynecological exam Hospital discharge follow-up Cervical cancer screening Pre-op evaluation BMI 50.0-59.9, adult Elevated LFTs Anemia DJD (degenerative joint disease) GERD (gastroesophageal reflux disease) Sleep apnea Strep pharyngitis Surgical History (Updated 04/25/25 @ 11:00 by Sahra Clayton CMA) S/P gastric sleeve procedure History of esophagogastroduodenoscopy (EGD) (01/07/25) History of tubal ligation History of cholecystectomy History of Family History Father Diabetes Hypertension Mother Hypertension Diabetes High cholesterol Heart problem Family/Other Mental health disorder Substance use disorder Maternal Aunt Breast cancer, Onset Age: 65 Maternal Uncle Prostate CA Sister Diabetes Brother Diabetes Brother No problems noted. Son No problems noted. Son ADHD Son ADHD Other Throat cancer Social History Household Members: Spouse, Family and Children Housing: Apartment Are you a primary administrator health care facility to a significant other at home: Yes (children) Do you presently have visiting nurse or other home services: No 75 years or older and lives alone: No Alcohol intake: never Patient Tobacco Use Status: Former Tobacco user Tobacco use type: Cigarette Cigarettes Per Day: 6 e-Cigarette/Vaping Use: Never Used Second Hand Smoke Exposure: No service: No Current occupational status: unemployed Cognitive needs: No Hearing needs: No Vision needs: No Female Reproductive History Menstrual Age of Menarche: 13 Behavioral Health Assessment Weight Management Therapy Therapy Notes Details Subjective: Patient reports her most recent weight was 248 lbs on 05/17/25. She has noticed increased hunger in the afternoons, particularly on days when she does not drink enough fluids. Patient also reports decreased physical activity and has not been as consistent with her exercise routine. Objective: Patient presents for a post-operative behavioral health follow-up visit. CBT interventions included psychoeducation on hydration and hunger cues, cognitive restructuring to address unhelpful thoughts about exercise, and behavioral activation to encourage regular physical activity. Problem-solving focused on increasing fluid intake and overcoming barriers to exercise. The patient was introduced to self-monitoring with a daily log for fluids, hunger, and activity, and meal planning strategies were reviewed. She was engaged and participated in developing a practical action plan. Assessment/Response: Mental status: Within normal limits. Mood stable, affect appropriate. Thought process logical and goal-directed. Risk reported/identified: none Assessment & Plan Assessment & Plan (1) Adjustment disorder: Code(s): F43.20 - Adjustment disorder, unspecified Plan -Patient to implement self-monitoring log for fluids, hunger, and exercise. -Encourage use of behavioral activation and problem-solving strategies discussed in session. -Follow up in 2 weeks. Next appointment: 06/04/25 at 12:00 PM, video visit. Telehealth Telehealth Telehealth Platform: [employer] Location of provider rendering services: other (Home office. [place], [place]) Location of patient: address on file Patient Identification confirmed using: Name, : Yes Telehealth method: video Patient verbally consented to treatment: Yes Patient verbally consented to billing insurance company: Yes Patient informed of any privacy concerns related to visit: Yes Minutes spent on Phone/Video with Pt.: 45 Coding Level of Care Code Established Pt Tele Psytx 45 mins (17935) Patient Type Established Diagnoses Adjustment disorder F43.20 Time Spent (min) 45
== END 2025-05-21 14:15 | disposition home or self-care (01) ==
LOC: HO.HBST 13:30
PROVIDERS: PCP Internal Medicine; Visit Provider Counselor Mental Health
DX: F43.20 Adjustment disorder, unspecified (principal)
CPT/HCPCS: 90834

== ENCOUNTER 2025-06-04 12:17 | Outpatient (AMB) | payer OTHER, SELFPAY ==
--- NOTE | 2025-06-04 12:17 | A.OFFWM_ITS ---
Intake Intake Visit Reasons: TV PO LSG 04/18/25 Allergies No Known Allergies Allergy (Verified 06/25/25 13:18) [facility] Medical History (Updated 06/25/25 @ 14:01 by CLEMENT Schaefer) Physical exam Encounter for well woman exam with routine gynecological exam Hospital discharge follow-up Cervical cancer screening Pre-op evaluation BMI 50.0-59.9, adult Elevated LFTs Anemia DJD (degenerative joint disease) GERD (gastroesophageal reflux disease) Sleep apnea Strep pharyngitis Surgical History S/P gastric sleeve procedure History of esophagogastroduodenoscopy (EGD) (01/07/25) History of tubal ligation History of cholecystectomy History of Family History Father Diabetes Hypertension Mother Hypertension Diabetes High cholesterol Heart problem Family/Other Mental health disorder Substance use disorder Maternal Aunt Breast cancer, Onset Age: 65 Maternal Uncle Prostate CA Sister Diabetes Brother Diabetes Brother No problems noted. Son No problems noted. Son ADHD Son ADHD Other Throat cancer Social History Household Members: Spouse, Family and Children Housing: Apartment Are you a primary college and career counselor to a significant other at home: Yes (children) Do you presently have visiting nurse or other home services: No 75 years or older and lives alone: No Alcohol intake: never Patient Tobacco Use Status: Former Tobacco user Tobacco use type: Cigarette Cigarettes Per Day: 6 e-Cigarette/Vaping Use: Never Used Second Hand Smoke Exposure: No service: No Current occupational status: unemployed Cognitive needs: No Hearing needs: No Vision needs: No Female Reproductive History Menstrual Age of Menarche: 13 Behavioral Health Assessment Weight Management Therapy Therapy Notes0 Details Subjective: The patient reports ongoing hunger and difficulty adhering to her post-surgical meal plan. She feels somewhat dismissed by her physician but recognizes that she asks many questions to avoid making mistakes. She would like more variety in her food options. Her most recent weight on 05/30/2025 was 244 lbs, with most weight loss attributed to fat mass, she continues working with a personal trainner. Her mood is generally good; she is mildly concerned about hair loss but is managing this well. She continues to receive strong support from her boyfriend and mother. Objective: The patient attended her post-operative behavioral health visit via telehealth. Interventions focused on normalizing her concerns about hunger and food variety post-surgery. CBT-based strategies were used to help her identify and challenge unhelpful thoughts related to food cravings and perceived deprivation. We discussed mindful eating techniques to increase awareness of true hunger versus head hunger, and developed a structured meal and snack schedule to promote consistency. The patient was encouraged to use a food journal to track hunger cues, emotional triggers, and satisfaction levels. We explored ways to expand her list of approved food options within her dietary guidelines and practiced assertive communication skills to help her express her needs and questions more effectively with her medical team. Psychoeducation was provided regarding the typical post-surgical adjustment period, including common experiences with hunger and hair loss. Assessment/Response: * Mental status: Alert and oriented, mood is stable, affect congruent, thought process logical and goal-directed, no evidence of psychosis. * Risk reported/identified: No suicidal or homicidal ideation, no self-harm behaviors reported. Assessment & Plan Assessment & Plan (1) Adjustment disorder: Code(s): F43.20 - Adjustment disorder, unspecified (2) Status post bariatric surgery: Code(s): Z98.84 - Bariatric surgery status Plan Continue post-operative behavioral health support every 2?4 weeks. * Next appointment scheduled for 06/25/2025 via video. Telehealth Telehealth Telehealth Platform: [facility] Location of provider rendering services: other (Home office. [place], [place]) Location of patient: address on file Patient Identification confirmed using: Name, : Yes Telehealth method: video Patient verbally consented to treatment: Yes Patient verbally consented to billing insurance company: Yes Patient informed of any privacy concerns related to visit: Yes Minutes spent on Phone/Video with Pt.: 45 [place] [id number] Tele Psytx 45 mins Patient Type Established Diagnoses Adjustment disorder F43.20 Status post bariatric surgery Z98.84 Time Spent (min) 45
== END 2025-06-04 13:11 | disposition home or self-care (01) ==
LOC: HO.HBST 12:17
PROVIDERS: PCP Internal Medicine; Visit Provider Counselor Mental Health
DX: F43.20 Adjustment disorder, unspecified (principal); Z98.84 Bariatric surgery status
CPT/HCPCS: 90834

== ENCOUNTER 2025-06-25 13:02 | Outpatient (AMB) | payer OTHER, SELFPAY ==
--- NOTE | 2025-06-25 13:06 | A.OFFVIS_ITS ---
VS Expanded 06/25/25 13:15 BP 130/66 Blood Pressure Location Rt brachial Blood Pressure Position Sitting Pulse 86 Pulse Source Pulse Oximeter Temp 97.1 F Temperature Source Temporal Artery Scan Pulse Oximetry 96 Oxygen Delivery Method Room Air Height 5 ft 5 in Weight 239 lb 3.2 oz BMI 39.8 Body Fat % 3.3 Body Fat Mass 86.6 Fat Free Mass 152.4 Visceral Fat Rating 9.0 Body Water % 45.6 Body Water Mass 109.0 Muscle Mass/Score 144.6 Basal Metabolic Rate/Score 2,102 Intake Visit Reasons: (OV) PO LSG 04/18/25 Certified Ophthalmic Assistant Required: Yes Certified Ophthalmic Assistant Name: Pierre- [phone], Marylu Allergies No Known Allergies Allergy (Verified 06/25/25 13:18) Medication List - Last Reconciled 06/25/25 by CLEMENT Schaefer blood pressure test kit-large ([facility] Blood Pressure Monitor kit) As directed iron,carbonyl-vitamin C 65 mg iron- 125 mg (Vitron-C) 1 tab PO DAILY ondansetron 4 mg PO Q12H pantoprazole 40 mg PO DAILY sucralfate 10 mL PO BID HPI Comments Details: This?is a?35?yo F who is s/p LSG 04/18/2025. Presents for 2mo post op visit. Cary guzman 328lbs. Weight at last visit on 05/17/2025 was 248 pounds with a BMI of 41.3. Weight today is 239.2 pounds, representing a 8.8 pound weight loss with a BMI today of 39.8.? No complaints of nausea, emesis, abdominal pain or reflux, or constipation. Present meal plan includes: Isopure- supposed to take 3-4 per day but doesn't always complete them Fitcrunch- 1 bar Pure Protein- 1 bar 2 forks chicken/fish, 2 forks broccoli Exercise routine includes: enrolled with a production trainer, 3x/week [facility] Medical History (Updated 06/25/25 @ 14:01 by CLEMENT Schaefer) Physical exam Encounter for well woman exam with routine gynecological exam Hospital discharge follow-up Cervical cancer screening Pre-op evaluation BMI 50.0-59.9, adult Elevated LFTs Anemia DJD (degenerative joint disease) GERD (gastroesophageal reflux disease) Sleep apnea Strep pharyngitis Surgical History S/P gastric sleeve procedure History of esophagogastroduodenoscopy (EGD) (01/07/25) History of tubal ligation History of cholecystectomy History of Family History Father Diabetes Hypertension Mother Hypertension Diabetes High cholesterol Heart problem Family/Other Mental health disorder Substance use disorder Maternal Aunt Breast cancer, Onset Age: 65 Maternal Uncle Prostate CA Sister Diabetes Brother Diabetes Brother No problems noted. Son No problems noted. Son ADHD Son ADHD Other Throat cancer Social History Household Members: Spouse, Family and Children Housing: Apartment Are you a primary care professionals to a significant other at home: Yes (children) Do you presently have visiting nurse or other home services: No 75 years or older and lives alone: No Alcohol intake: never Patient Tobacco Use Status: Former Tobacco user Tobacco use type: Cigarette Cigarettes Per Day: 6 e-Cigarette/Vaping Use: Never Used Second Hand Smoke Exposure: No service: No Current occupational status: unemployed Cognitive needs: No Hearing needs: No Vision needs: No Female Reproductive History Menstrual Age of Menarche: 13 Physical Exam Vital Signs: Last Vital Signs Temp 97.1 F 06/25/25 13:15 Pulse 86 06/25/25 13:15 BP 130/66 06/25/25 13:15 Pulse Ox 96 06/25/25 13:15 Oxygen Delivery Method Room Air 06/25/25 13:15 BMI result Body Mass Index 39.8 Assessment & Plan Assessment & Plan (1) S/P laparoscopic sleeve gastrectomy: Code(s): Z98.84 - Bariatric surgery status Category: Surgical (2) Obesity: Code(s): E66.9 - Obesity, unspecified Category: Medical Plan Created new plan for pt based on her preference to communicate with me: 8-10am Isopure 1 scoop 11am-1pm Fitcrunch 2-4pm Pure 5pm 2f/2f 7-9pm Fitcrunch 8-10pm Isopure half scoop RTC 1 month. Pt will continue to text me between visits with any questions.
[2025-06-25 13:15] VITALS: BP 130/66; PULSE 86; TEMP 36.2; O2SAT 96; BMI 39.8
== END 2025-06-25 14:15 | disposition home or self-care (01) ==
LOC: HO.HBS 13:03
PROVIDERS: PCP Internal Medicine; Visit Provider Physician Assistant Surgical
DX: E66.9 Obesity, unspecified (principal); Z68.39 Body mass index [BMI] 39.0-39.9, adult; Z90.3 Acquired absence of stomach [part of]; Z98.84 Bariatric surgery status
CPT/HCPCS: 99024

== ENCOUNTER → 2025-06-25 13:02 | Outpatient (BNVA) | payer OTHER, SELFPAY | PROVIDERS: PCP Internal Medicine; Visit Provider Physician Assistant Surgical | DX: Z98.84 Bariatric surgery status (principal); E66.9 Obesity, unspecified | CPT/HCPCS: 99212 ==

== ENCOUNTER 2025-06-27 09:11 | Outpatient (AMB) | payer OTHER, SELFPAY ==
--- NOTE | 2025-06-27 09:05 | A.OFFWM_ITS ---
Intake Intake Visit Reasons: TV PO LSG 04/18/25 Allergies No Known Allergies Allergy (Verified 06/25/25 13:18) [facility] Medical History (Updated 06/25/25 @ 14:01 by CLEMENT Schaefer) Physical exam Encounter for well woman exam with routine gynecological exam Hospital discharge follow-up Cervical cancer screening Pre-op evaluation BMI 50.0-59.9, adult Elevated LFTs Anemia DJD (degenerative joint disease) GERD (gastroesophageal reflux disease) Sleep apnea Strep pharyngitis Surgical History S/P gastric sleeve procedure History of esophagogastroduodenoscopy (EGD) (01/07/25) History of tubal ligation History of cholecystectomy History of Family History Father Diabetes Hypertension Mother Hypertension Diabetes High cholesterol Heart problem Family/Other Mental health disorder Substance use disorder Maternal Aunt Breast cancer, Onset Age: 65 Maternal Uncle Prostate CA Sister Diabetes Brother Diabetes Brother No problems noted. Son No problems noted. Son ADHD Son ADHD Other Throat cancer Social History Household Members: Spouse, Family and Children Housing: Apartment Are you a primary medical care manager to a significant other at home: Yes (children) Do you presently have visiting nurse or other home services: No 75 years or older and lives alone: No Alcohol intake: never Patient Tobacco Use Status: Former Tobacco user Tobacco use type: Cigarette Cigarettes Per Day: 6 e-Cigarette/Vaping Use: Never Used Second Hand Smoke Exposure: No service: No Current occupational status: unemployed Cognitive needs: No Hearing needs: No Vision needs: No Female Reproductive History Menstrual Age of Menarche: 13 Behavioral Health Assessment Weight Management Therapy Therapy Notes0 Details Subjective: Patient had a post-operative follow-up visit with Edith. She reports an increase in muscle mass due to regular strengthening exercises and a concurrent reduction in fat mass. The patient is experiencing increased stress related to family challenges, particularly with her children, which at times affects her consistency with her routine and weight-loss goals. Objective: Patient attended follow-up via Telehealth. Discussed current functioning, progress, and ongoing needs. Utilized reflective listening to address her fears and frustrations regarding weight loss plateaus. Reviewed goals and collaboratively set realistic expectations. Developed a behavioral activation plan to support consistency. Explored sources of personal stress, provided validation and normalization of her feelings, and introduced stress management strategies to improve adherence to her weight-loss journey. Assessment/Response: * Mental status: Mild stress; functioning within normal limits. * Risk reported/identified: None Assessment & Plan Assessment & Plan (1) Adjustment disorder: Code(s): F43.20 - Adjustment disorder, unspecified (2) Status post bariatric surgery: Code(s): Z98.84 - Bariatric surgery status Plan F/up in 4 weeks for continued support post-op. Next alix: 07/23/2025 at 12, video Telehealth Telehealth Telehealth Platform: [employer] Location of provider rendering services: practice address Location of patient: address on file Patient Identification confirmed using: Name, : Yes Telehealth method: video Patient verbally consented to treatment: Yes Patient verbally consented to billing insurance company: Yes Patient informed of any privacy concerns related to visit: Yes Minutes spent on Phone/Video with Pt.: 55 Coding Level of Care Code Established Pt Tele Psytx >53 mins (53588) Patient Type Established Diagnoses Adjustment disorder F43.20 Status post bariatric surgery Z98.84 Time Spent (min) 55
== END 2025-06-27 10:11 | disposition home or self-care (01) ==
LOC: HO.HBST 09:11
PROVIDERS: PCP Internal Medicine; Visit Provider Counselor Mental Health
DX: F43.20 Adjustment disorder, unspecified (principal); Z98.84 Bariatric surgery status
CPT/HCPCS: 90837

== ENCOUNTER 2025-07-22 09:07 | Outpatient (AMB) | payer OTHER, SELFPAY ==
--- NOTE | 2025-07-22 09:09 | A.OFFVIS_ITS ---
VS Expanded 07/22/25 09:23 BP 127/70 Blood Pressure Location Rt brachial Blood Pressure Position Sitting Pulse 82 Pulse Source Pulse Oximeter Temp 97.4 F Temperature Source Temporal Artery Scan Pulse Oximetry 98 Oxygen Delivery Method Room Air Height 5 ft 5 in Weight 228 lb 9.6 oz BMI 38.0 Body Fat % 36.2 Body Fat Mass 82.6 Fat Free Mass 145.8 Visceral Fat Rating 9.0 Body Water % 45.7 Body Water Mass 104.2 Muscle Mass/Score 138.4 Basal Metabolic Rate/Score 2,006 Intake Visit Reasons: (OV) PO LSG 04/18/25 Paragliding Instructor Required: Yes Paragliding Instructor Name: Eugenie- [id number] Allergies No Known Allergies Allergy (Verified 07/22/25 09:14) Medication List - Last Reconciled 07/22/25 by CLEMENT Schaefer blood pressure test kit-large ([facility] Blood Pressure Monitor kit) As directed docusate sodium 100 mg PO BID inulin 2 grams PO DAILY iron,carbonyl-vitamin C 65 mg iron- 125 mg (Vitron-C) 1 tab PO DAILY HPI Comments Details: This?is a?35?yo F who is s/p LSG 04/15/2025. Presents for 3mo post op visit. Weight loss of 10.6lb since last OV 1mo ago No complaints of nausea, emesis, abdominal pain or reflux, or constipation. Finished carafate and pantoprazole. Present meal plan includes: shake in AM- Isopure 1 scoop protein bar- 2 Fitcrunch, 1 Pure 5pm- 1 meal of chicken or fish, plus veg- 2ff or each shake after dinner- half scoop Isopure Exercise routine includes: 3x week weight training, 2-4x week cardio, 300 calories burned per session [facility] Medical History (Updated 06/25/25 @ 14:01 by CLEMENT Schaefer) Physical exam Encounter for well woman exam with routine gynecological exam Hospital discharge follow-up Cervical cancer screening Pre-op evaluation BMI 50.0-59.9, adult Elevated LFTs Anemia DJD (degenerative joint disease) GERD (gastroesophageal reflux disease) Sleep apnea Strep pharyngitis Surgical History S/P gastric sleeve procedure History of esophagogastroduodenoscopy (EGD) (01/07/25) History of tubal ligation History of cholecystectomy History of Family History Father Diabetes Hypertension Mother Hypertension Diabetes High cholesterol Heart problem Family/Other Mental health disorder Substance use disorder Maternal Aunt Breast cancer, Onset Age: 65 Maternal Uncle Prostate CA Sister Diabetes Brother Diabetes Brother No problems noted. Son No problems noted. Son ADHD Son ADHD Other Throat cancer Social History Household Members: Spouse, Family and Children Housing: Apartment Are you a primary manager intensive care unit to a significant other at home: Yes (children) Do you presently have visiting nurse or other home services: No 75 years or older and lives alone: No Alcohol intake: never Patient Tobacco Use Status: Former Tobacco user Tobacco use type: Cigarette Cigarettes Per Day: 6 e-Cigarette/Vaping Use: Never Used Second Hand Smoke Exposure: No service: No Current occupational status: unemployed Cognitive needs: No Hearing needs: No Vision needs: No Female Reproductive History Menstrual Age of Menarche: 13 Physical Exam Vital Signs: Last Vital Signs Temp 97.4 F 07/22/25 09:23 Pulse 82 07/22/25 09:23 BP 127/70 07/22/25 09:23 Pulse Ox 98 07/22/25 09:23 Oxygen Delivery Method Room Air 07/22/25 09:23 BMI result Body Mass Index 38.0 Assessment & Plan Assessment & Plan (1) S/P laparoscopic sleeve gastrectomy: Code(s): Z98.84 - Bariatric surgery status Category: Surgical (2) Obesity: Code(s): E66.9 - Obesity, unspecified Category: Medical Plan Pt has completed PPI and carafate, no reflux. Pt has lost over 100 lbs. To continue same meal plan as above, however can substitute 2 additional ff protein for evening Isopure drink, or keep protein intake the same and add 2ff veg/salad to meal. Gave healthy foods handout. RTC 3mo.
[2025-07-22 09:23] VITALS: BP 127/70; PULSE 82; TEMP 36.3; O2SAT 98; BMI 38.0
== END 2025-07-22 09:55 | disposition home or self-care (01) ==
LOC: HO.HBS 09:07
PROVIDERS: PCP Internal Medicine; Visit Provider Physician Assistant Surgical
DX: E66.9 Obesity, unspecified (principal); Z68.28 Body mass index [BMI] 28.0-28.9, adult; Z90.3 Acquired absence of stomach [part of]; Z98.84 Bariatric surgery status
CPT/HCPCS: 99213

== ENCOUNTER → 2025-07-22 09:07 | Outpatient (BNVA) | payer OTHER, SELFPAY | PROVIDERS: PCP Internal Medicine; Visit Provider Physician Assistant Surgical | DX: Z98.84 Bariatric surgery status (principal); E66.9 Obesity, unspecified | CPT/HCPCS: 99212 ==